=== PATIENT | female | born 1960 | race Caucasian/White ===

== ENCOUNTER 2019-06-06 05:42 | Outpatient (RCR) | payer MEDICARE, MEDICAID, SELFPAY | END 2019-06-19 00:01 | LOC: ONCMED 05:42 | PROVIDERS: Family Provider Nurse Practitioner; PCP Nurse Practitioner; Visit Provider Internal Medicine Medical Oncology | DX: C50.811 Malignant neoplasm of overlapping sites of right female breast (principal); C78.2 Secondary malignant neoplasm of pleura; C78.01 Secondary malignant neoplasm of right lung; C78.02 Secondary malignant neoplasm of left lung; F20.9 Schizophrenia, unspecified; Z17.0 Estrogen receptor positive status [ER+]; Z79.899 Other long term (current) drug therapy; Z99.81 Dependence on supplemental oxygen; Z79.51 Long term (current) use of inhaled steroids; Z79.811 Long term (current) use of aromatase inhibitors; Z92.21 Personal history of antineoplastic chemotherapy | CPT/HCPCS: 36415; 71260; 80053; 85025; 86300; 99214; Q9967 ==

== ENCOUNTER 2019-07-04 05:56 | Outpatient (RCR) | payer MEDICARE, MEDICAID, SELFPAY ==
[2019-07-04 10:20] LABS: Basophils % 0.8 %; Eosinophils # 0.1 10^3/uL (0.0-0.8); Hematocrit 36.1 % (37.0-47.0); Hemoglobin 11.7 g/dL (11.5-15.3); Lymphocytes # 1.3 10^3/uL (0.8-4.8); Lymphocytes % 33.2 %; Mean Corpuscular HGB Conc 32.4 g/dL (30.0-36.0); Mean Corpuscular Hemoglobin 35.2 pg (28.0-34.0); Mean Corpuscular Volume 108.7 fL (81-99); Mean Platelet Volume 9.9 fL (7.4-10.4); Monocytes # 0.4 10^3/uL (0.2-0.9); Monocytes % 9.6 %; Neutrophils # 2.2 10^3/uL (1.8-7.7); Neutrophils % 54.1 %; Nucleated Red Blood Cells % 0 %; Platelet Count 341 10^3/cmm (130-400); Red Blood Count 3.32 10^6/uL (4.1-5.3); Red Cell Distribution Width 14.5 % (12.1-15.1)
[2019-07-04 10:42] LABS: Alanine Aminotransferase 14 U/L (0-33); Albumin Level 4.3 g/dL (3.5-5.2); Alkaline Phosphatase 93 IU/L (35-105); Anion Gap 14.1 (5-19); Aspartate Amino Transferase 14 U/L (0-32); Blood Urea Nitrogen 23 mg/dL (6-20); Calcium 9.7 mg/Dl (8.6-10.0); Carbon Dioxide 28 mmol/L (22-29); Chloride 103 mmol/L (98-107); Globulin 2.7 g/dL (1.3-4.6); Glomerular Filtration Rate 126.3 mL/min (90-130); Glucose 96 mg/dL (74-109); Potassium 4.1 mmol/L (3.5-5.1); Sodium 141 mmol/L (136-145); Total Bilirubin 0.3 mg/dL (0.15-1.2)
--- NOTE | 2019-07-04 13:07 | ONC FU_ITS ---
[facility] Patient Note Patient: Alivia Friedman Unit #: [id number]: [id number] Dictated By: Brandon EckertDate of Visit: Jul 04, 2019 Onc MED Follow-Up/Prog Note Chief Complaint: Breast cancer. History of Present Illness: Ms Friedman is a 59 year-old woman with grade 2 infiltrating ductal carcinoma of the right breast, ER/UT positive and HER-2/cole negative. Her disease was locally advanced and metastatic at initial diagnosis in February 2019. She has a history of long-standing psychiatric disorder, previously diagnosed as schizophrenia. She was seen by Alina Holland on 01/15/2019 with complaints of shortness of breath and cough. Chest x-ray at that time showed diffuse bilateral nodular pulmonary opacities and infiltrates, some of which appeared cavitated. Further evaluation with chest CT on 01/26/2019 showed extensive, contiguous pleural-based and pulmonary metastatic disease bilaterally throughout the thorax. There was suspected extension into the superior surface of the liver. A large right rest mass measured 7.5 x 5.3 x 8.1 cm with likely invasion of the underlying chest wall. There was evidence of right axillary, mediastinal, and hilar lymphadenopathy and there was left celiac axis versus left adrenal abnormal lymph node. There appeared to be metastatic involvement in the right third rib. Dr Lainez had seen her initially on 02/01/2019. She had been aware of a mass in her right breast for least 2 or 3 years. In reviewing her record in [employer], she had been getting mammograms on a fairly regular basis until 2012, when her mammogram showed a nodular, asymmetric density in the medial posterior right breast for which additional evaluation with ultrasound was recommended. She failed to have anything further done. At the time of that visit Dr Lainez had discussed some possible treatment options, and she then did agree to undergo biopsy. It was performed the following day, with pathology showing grade 2 infiltrating ductal carcinoma, ER/UT positive and HER-2/cole negative. On 02/26/2019 she began treatment with palbociclib 125 mg daily on a 21/28 day schedule together with letrozole 2.[address] of the chest with contrast from 06/04/2019 reports the large right breast mass #decreased in size to 4.3 x 7 x 6.2 cm compared to 5.8 x 8.1 x 7.6 cm. She is also had improvement in the right anterior chest wall invasion. Decrease in bulk of right several axillary lymph nodes. Target lymph node measured 0.7 cm on the May scan compared to 2.2 cm on the prior exam. No evidence of left breast mass or left axillary adenopathy. The widespread nodular neoplastic thickening involving the pleural margins of both hemothoraces with overall generalized improvement. Additional involvement of the dye from attic surfaces is improved. On the right the diaphragmatic neoplastic involvement causes slight impingement of the superior margin of the liver but there is less suspicious on this exam of direct hepatic invasion compared to the prior exam. There was a left lower lobe tracheal bronchial region nodule measuring 8.5 mm decreased from 11.1 on the prior exam. There is no evidence otherwise of discrete parenchymal involvement by mass or lesions or neoplastic nodules. Alivia is here today for followup. She has now completed 4 cycles of treatment. She remains very active and does do alot of walking and recycling . She states her appetite is good and she has gained 14 pounds since February 2019. She denies any cough or shortness of breath. She denies any chest pain or palpitations. She states her bowels and bladder are normal for her. She denies any pain-particularly bone pain. She continues to tolerate the palbociclib well. She states her breast mass is smaller and does not bleed anymore. Her ECOG is 0. Past Medical History: Gastroesophageal reflux disease History of long-standing psychiatric disorder Past Surgical History: Wana teeth extraction Influeza vaccine in 2019 Pneumonia vaccine in 2019 Allergies: Azithromycin Medications: Albuterol Sulfate 1 puff(s) (of 108 (90 base) mcg/act) Aerosol Powder, Breath Activated Inhalation daily PRN Calcium 600+D3 Plus Minerals 2 Tablet (of 500-700 mg - Units) Tablet, chewable Oral daily Ibrance 1 Capsule (of 125 mg) Oral daily Ibuprofen 4 Tablet (of 200 mg) Oral PRN Letrozole 1 Tablet (of 2.5 mg) Oral daily Protonix 1 Tablet (of 40 mg) Tablet, enteric coated Oral daily Family History: Ms. Friedman's mother is alive. Ms. Friedman's father at age 78: congestive heart failure, and type II diabetes. Ms. Friemdan has 1 sister who is alive. Father had heart disease, COPD, and diabetes. He at age 78. Mother is still living at age 81 and is apparently in good health. One sister is in good health. Social History: Ms. 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 Ms. Friedman has never smoked. She has no history of drinking. She is a nonsmoker. She does not drink alcohol. Review Of Symptoms: Constitutional Denies fevers, chills, night sweats, excessive fatigue or weight loss. Remains very active. Allergic/Immunologic No reactions. Eyes Denies significant visual changes. No diplopia. No amaurosis. ENMT Denies changes in hearing, sore throat, difficulty or changes in swallowing ability, and/or sinus drainage. Hematologic/Lymphatic Denies easy bruising or bleeding. The patient denies any tender or palpable lymph nodes. Breasts Right breast mass is smaller and it is not draining/bleeding. Respiratory Denies dyspnea on exertion, chest pain, cough or hemoptysis. Denies orthopnea. Cardiovascular Denies anginal chest pain, palpitations or orthopnea. Gastrointestinal Denies nausea, vomiting, diarrhea, GI bleeding, or constipation. Denies change in bowel habits and/or stool color, no heartburn or early satiety. Genitourinary (F) No hematuria, hesitancy, incontinence, vaginal bleeding, discharge or other problems with urination. Musculoskeletal Denies joint pain, swelling or redness. No decreased range of motion. Integumentary Denies chronic rashes, inflammation, ulcerations or skin changes. Neurologic Denies headache, blurred vision, and no areas of focal weakness or numbness. Normal gait. No sensory problems. Psychiatric Denies insomnia, depression, chele or mood swings. Vital Signs: Performed on Jul 04, 2019 11:46 Height - 59.00 in Weight - 142.2 lbs (HIGH) BSA - 1.60 sq.m BMI - 28.72 Temperature - 97.3 F (LOW) Pulse - 73 /min Respiration - 18 /min BP - 125/75 mm(hg) O2 Sat - 97 % Pain - 0,0 - Fully active, able to carry on all predisease activities without restrictions. (ECOG) Physical Examination: Constitutional Alert, oriented, no acute distress. Skin pink, warm and dry. Head Normocephalic; atraumatic. Eyes Conjunctivae and sclerae are clear and without icterus. Pupils are reactive and equal. ENMT No oral exudates, ulcers, masses, thrush or mucositis. Oropharynx clear. Tongue normal. Neck Supple without masses or thyromegaly. No jugular venous distension. Hematologic/Lymphatic No petechiae; purpura on forearms intermittently. No tender or palpable lymph nodes in the cervical or supraclavicular areas. Respiratory Lungs are clear to auscultation without rhonchi or wheezing. Cardiovascular Regular rate and rhythm of heart without murmurs,clicks, gallops or rubs. Back/Spine Non-tender to palpation. Extremities No visible deformities, no cyanosis, clubbing or edema. Musculoskeletal No tenderness or swelling, normal range of motion without obvious weakness. Integumentary No rashes or lesions. Neurologic No sensory or motor deficits, normal cerebellar function, normal gait. Psychiatric Alert and oriented times three. Coherent speech. Verbalizes understanding of our discussions today. Laboratory:See Flow sheet for details Impression: 1. Patient with grade 2 infiltrating ductal carcinoma of the right breast, ER/UT positive and HER-2/cole negative. She had locally advanced and metastatic disease at initial diagnosis, including CT evidence of extensive pleural and pulmonary metastatic involvement. 2. She has GERD. 3. She has a history of long-standing psychiatric, which previously was diagnosed as schizophrenia. She is currently not on any medication for it. On 02/26/2019 she began treatment with palbociclib 125 mg daily on a 21/28 day schedule together with letrozole 2.5 mg daily. She has now completed 3 cycles of treatment. Overall, she has tolerated it well. She does appear to be showing response, as there has been a significant decline in her Ca1 25 level, from 5061 U/mL 2817 U/mL, and there also has been some improvement in her clinical status. CT of the chest with contrast from 06/04/2019 reports the large right breast mass #decreased in size to 4.3 x 7 x 6.2 cm compared to 5.8 x 8.1 x 7.6 cm. She is also had improvement in the right anterior chest wall invasion. Decrease in bulk of right several axillary lymph nodes. Target lymph node measured 0.7 cm on the May scan compared to 2.2 cm on the prior exam. No evidence of left breast mass or left axillary adenopathy. The widespread nodular neoplastic thickening involving the pleural margins of both hemothoraces with overall generalized improvement. Additional involvement of the dye from attic surfaces is improved. On the right the diaphragmatic neoplastic involvement causes slight impingement of the superior margin of the liver but there is less suspicious on this exam of direct hepatic invasion compared to the prior exam. There was a left lower lobe tracheal bronchial region nodule measuring 8.5 mm decreased from 11.1 on the prior exam. There is no evidence otherwise of discrete parenchymal involvement by mass or lesions or neoplastic nodules. Ms Friedman is tolerating letrozole/palbociclib well. She continues treatment. Plan: 1. Continue treatment with letrozole 2.5 mg daily together with palbociclib 125 mg daily on a 21/ day schedule. 2. B12 requested to be added to blood in lab for evaluation of elevated MCV (108.7)/MCH (35.2). 3. Today's labs reviewed in detail and discussed with Ms. Pedro Avendano and a copy was given to her. Her CA-27-29 was pending at visit and that will be called or mailed or both to her. WBC 4.0 hemoglobin 11.7 hematocrit 36.1 platelets 341,000 MCV MCH as noted above. ANC is 2200. Creatinine 0.5 random glucose 96 LFTs are normal alk phos is normal calcium is 9.7. 4. I did refill her albuterol she does have some shortness of breath and wheezing at times. She uses this just as needed. 5. She does have refills on her acyclovir. She has had to use that intermittently for herpes simplex. She is not had any current problems and states the last time she did the medicines took care of it very quickly. 6. We will plan to see her back in 1 month with a CBC, CMP, TSH (for evaluation of intermittent fatigue) and CA-27-29. 7. Ms. Friedman has been instructed to contact us in the interim should questions or problems arise. Signed By: Brandon Eckert-, AOCNP Russell Lainez MD <<Signature on File>>
[2019-07-04 21:38] LABS: Vitamin B12 313 pg/mL (232-1245)
== END 2019-07-20 23:59 | disposition home or self-care (01) ==
LOC: ONCMED 05:56
PROVIDERS: Family Provider Nurse Practitioner; PCP Nurse Practitioner; Visit Provider Nurse Practitioner
DX: C50.811 Malignant neoplasm of overlapping sites of right female breast (principal); C78.01 Secondary malignant neoplasm of right lung; C78.02 Secondary malignant neoplasm of left lung; C79.51 Secondary malignant neoplasm of bone; C78.7 Secondary malignant neoplasm of liver and intrahepatic bile duct; F20.9 Schizophrenia, unspecified; K21.9 Gastro-esophageal reflux disease without esophagitis; R53.83 Other fatigue; Z17.0 Estrogen receptor positive status [ER+]; Z79.899 Other long term (current) drug therapy; Z79.811 Long term (current) use of aromatase inhibitors
CPT/HCPCS: 36415; 80053; 82607; 85025; 99214

== ENCOUNTER 2019-08-02 06:01 | Outpatient (RCR) | payer MEDICARE, MEDICAID, SELFPAY ==
[2019-08-02 08:59] LABS: Basophils # 0.1 10^3/uL (0.0-0.1); Basophils % 1.7 %; Eosinophils # 0.1 10^3/uL (0.0-0.8); Eosinophils % 2.3 %; Hemoglobin 11.6 g/dL (11.5-15.3); Lymphocytes # 1.5 10^3/uL (0.8-4.8); Lymphocytes % 48.3 %; Mean Corpuscular HGB Conc 32.2 g/dL (30.0-36.0); Mean Corpuscular Hemoglobin 34.9 pg (28.0-34.0); Mean Corpuscular Volume 108.4 fL (81-99); Mean Platelet Volume 9.7 fL (7.4-10.4); Monocytes # 0.3 10^3/uL (0.2-0.9); Monocytes % 10.3 %; Neutrophils # 1.1 10^3/uL (1.8-7.7); Neutrophils % 37.4 %; Nucleated Red Blood Cells % 0 %; Platelet Count 256 10^3/cmm (130-400); Red Blood Count 3.32 10^6/uL (4.1-5.3); Red Cell Distribution Width 13.2 % (12.1-15.1)
[2019-08-02 09:31] LABS: Alanine Aminotransferase 14 U/L (0-33); Alkaline Phosphatase 82 IU/L (35-105); Anion Gap 13.2 (5-19); Aspartate Amino Transferase 16 U/L (0-32); Blood Urea Nitrogen 18 mg/dL (6-20); Calcium 9.3 mg/dL (8.5-10.5); Carbon Dioxide 30 mmol/L (22-29); Chloride 103 mmol/L (98-107); Globulin 3.2 g/dL (1.3-4.6); Glomerular Filtration Rate 102.3 mL/min (90-130); Glucose 75 mg/dL (65-115); Potassium 4.2 mmol/L (3.5-5.1); Sodium 142 mmol/L (136-145); Thyroid Stimulating Hormone 2.76 uIU/mL (0.27-4.20); Total Bilirubin 0.2 mg/dL (0.15-1.2); Total Protein 7.2 g/dL (6.6-8.7)
--- NOTE | 2019-08-02 19:14 | ONC FU_ITS ---
Dr. Lainez Patient Follow-Up Note Patient: Alivia Minaya Unit #: [id number]: [id number] Dicatated By: Efren Lainez M.D.Date of Visit:Aug 02, 2019 Onc Med Follow-up/Prog Note Chief Complaint: Breast cancer. History of Present Illness: This is a 59 year-old woman with grade 2 infiltrating ductal carcinoma of the right breast, ER/PA positive and HER-2/cole negative. Her disease was locally advanced and metastatic at initial diagnosis in February 2019. She has a history of long-standing psychiatric disorder, previously diagnosed as schizophrenia. She was seen by Alina Holland on 01/15/2019 with complaints of shortness of breath and cough. Chest x-ray at that time showed diffuse bilateral nodular pulmonary opacities and infiltrates, some of which appeared cavitated. Further evaluation with chest CT on 01/26/2019 showed extensive, contiguous pleural-based and pulmonary metastatic disease bilaterally throughout the thorax. There was suspected extension into the superior surface of the liver. A large right rest mass measured 7.5 x 5.3 x 8.1 cm with likely invasion of the underlying chest wall. There was evidence of right axillary, mediastinal, and hilar lymphadenopathy and there was left celiac axis versus left adrenal abnormal lymph node. There appeared to be metastatic involvement in the right third rib. I had seen her initially on 02/01/2019. She had been aware of a mass in her right breast for least 2 or 3 years. In reviewing her record in [facility], she had been getting mammograms on a fairly regular basis until 2012, when her mammogram showed a nodular, asymmetric density in the medial posterior right breast for which additional evaluation with ultrasound was recommended. She failed to have anything further done. At that initial visit she had agreed to undergo biopsy. It was performed the following day, with pathology showing grade 2 infiltrating ductal carcinoma, ER/PA positive and HER-2/cole negative. On 02/26/2019 she began treatment with palbociclib 125 mg daily on a 21/28 day schedule together with letrozole 2.5 mg daily. During subsequent follow-up she did show gradual improvement clinically, and she appeared to tolerate the treatment very well. She is seen for a scheduled visit. She has now completed 5 cycles of treatment. She has been feeling pretty good generally. She is not aware of any adverse effects with her her treatment. She says her energy is pretty good. She is fairly active. ECOG score is 1. She has good appetite, and she has gained weight. She does not have fever, night sweats, or hot flashes. She has had occasional sores in her mouth. She still has some shortness of breath, mainly with cold weather. She is still on oxygen most of the time. She sometimes has cough. She does not complain of chest pain. She has no GI or complaints. She has no joint or bone pain. She says she sometimes wakes up with headache. She has no focal neurologic symptoms. Medications: Albuterol Sulfate 1 puff(s) (of 108 (90 base) mcg/act) Aerosol Powder, Breath Activated Inhalation daily PRN, Calcium 600+D3 Plus Minerals 2 Tablet (of 500-700 mg - Units) Tablet, chewable Oral daily, Ibrance 1 Capsule (of 125 mg) Oral daily, Ibuprofen 4 Tablet (of 200 mg) Oral PRN, Letrozole 1 Tablet (of 2.5 mg) Oral daily, Protonix 1 Tablet (of 40 mg) Tablet, enteric coated Oral daily Allergies: Azithromycin Review of Systems: Constitutional - Her energy is pretty good generally. She does light work at home. She also walks on nice days. Her appetite is good and her weight is up 8 pounds since her last visit. No fever, chills, hot flashes, or night sweats. ECOG score is 1, ENMT - She has a runny nose. She has mouth sores. No sore throat or difficulty swallowing, Hematologic/Lymphatic - No abnormal bruising or bleeding, Respiratory - She gets out of breath during the cold. She wears oxygen most of the time, but she does take it off when she is at home. She has an occasional cough. No pleuritic pain or hemoptysis, Cardiovascular - No angina pain. No palpitations, Gastrointestinal - No nausea or vomiting. No heartburn or acid reflux. No diarrhea or constipation. No blood in the stool or black stools, Genitourinary (F) - No dysuria or hematuria. No urinary frequency. No urgency or incontinence, Musculoskeletal - No joint or bone pain, Integumentary - No skin complications, Neurologic - She sometimes wakes up with a headache. No dizziness. No numbness/paresthesias or other focal neurologic symptoms, Psychiatric - She has anxiety. No insomnia. Vital Signs: Performed on Aug 02, 2019 09:28 Height - 59.00 in Weight - 150.2 lbs (HIGH) BSA - 1.63 sq.m BMI - 30.34 (HIGH) Temperature - 98.2 F (LOW) Pulse - 84 /min Respiration - 26 /min BP - 127/80 mm(hg) O2 Sat - 97 % Pain - 0 Physical Examination: Constitutional - She looks pretty good generally, Eyes - Sclerae nonicteric. Conjunctivae clear, ENMT - No lesions noted in the oral cavity, Hematologic/Lymphatic - No cervical or clavicular adenopathy, Respiratory - Lungs sound clear with slightly diminished air movement at the right lung base, Cardiovascular - Heart rhythm is regular. There is a II/ systolic murmur. There is no gallop or rub noted, Breasts - There are discrete masses palpable in the medial and in the central right breast. There is only slight residual skin ulceration medially. There is a small residual nodule palpable in the right axilla, Abdomen - Soft. Liver and spleen are not enlarged. There is no abdominal mass or ascites noted and there is no inguinal adenopathy, Extremities - No edema, Neurologic - No focal neurologic deficits noted. Lab/Imaging: Test performed on Aug 02, 2019 08:20 Sodium 142 mmol/L TSH 2.76 uIU/mL Potassium 4.2 mmol/L Chloride 103 mmol/L CO2 30 mmol/L Anion Gap 13.2 BUN 18 mg/dL Creatinine 0.6 mg/dL Cr Clearance (Est) 108.5800 mL/min eGFR 102.3 mL/min Glucose 75 mg/dL Calcium 9.3 mg/dL Protein, Total 7.2 g/dL Albumin 4.0 g/dL Globulin 3.2 g/dL Bilirubin, Total 0.2 mg/dL ALT (SGPT) 14 U/L AST (SGOT) 16 U/L Alkaline Phosphatase 82 IU/L WBC 3.0 10 3/uL RBC 3.32 10 6/uL HGB 11.6 g/dL HCT 36.0 % MCV 108.4 fL MCH 34.9 pg MCHC 32.2 g/dL RDW 13.2 % Platelet Count 256 10 3/cmm MPV 9.7 fL Neutrophils 1.1 10 3/uL Lymphocytes 1.5 10 3/uL Monocytes 0.3 10 3/uL Eosinophils 0.1 10 3/uL Basophils 0.1 10 3/uL Neutrophil % 37.4 % Lymphocyte % 48.3 % Monocyte % 10.3 % Eosinophil % 2.3 % Basophils % 1.7 % Impression: 1. Patient with grade 2 infiltrating ductal carcinoma of the right breast, ER/PA positive and HER-2/cole negative. She had locally advanced and metastatic disease at initial diagnosis, including CT evidence of extensive pleural and pulmonary metastatic involvement. 2. She has GERD. 3. She has a history of a long-standing psychiatric disorder, which previously was diagnosed as schizophrenia. She is currently not on any medication for it. On 02/26/2019 she began treatment with palbociclib 125 mg daily on a 21/28 day schedule together with letrozole 2.5 mg daily. She has now completed 5 cycles of treatment. She has been tolerating it very well, and by clinical evaluation she does appear to be showing a very good response. Plan: She will continue treatment with palbociclib 125 mg daily on a 21/28 day schedule together with letrozole 2.5 mg daily. She will be scheduled for a follow-up visit in one month. Signed By: Efren Lainez M.D. <<Signature on File>>
== END 2019-08-18 23:59 | disposition home or self-care (01) ==
LOC: ONCMED 06:01
PROVIDERS: Family Provider Nurse Practitioner; PCP Nurse Practitioner; Visit Provider Internal Medicine Medical Oncology
DX: C50.811 Malignant neoplasm of overlapping sites of right female breast (principal); C78.01 Secondary malignant neoplasm of right lung; C78.02 Secondary malignant neoplasm of left lung; K21.9 Gastro-esophageal reflux disease without esophagitis; F20.9 Schizophrenia, unspecified; Z17.0 Estrogen receptor positive status [ER+]; Z79.899 Other long term (current) drug therapy; Z79.811 Long term (current) use of aromatase inhibitors
CPT/HCPCS: 80053; 84443; 85025; 86300; 99214

== ENCOUNTER → 2019-09-10 14:54 | Outpatient (BNVA) | payer MEDICARE, MEDICAID, SELFPAY | PROVIDERS: Family Provider Nurse Practitioner; PCP Nurse Practitioner; Visit Provider Nurse Practitioner | DX: F60.1 Schizoid personality disorder (principal); F41.1 Generalized anxiety disorder | CPT/HCPCS: 99213 ==

== ENCOUNTER 2019-09-14 10:00 | Outpatient (RCR) | payer MEDICARE, MEDICAID, SELFPAY ==
[2019-08-30 09:48] LABS: Basophils % 0.9 %; Eosinophils # 0.1 10^3/uL (0.0-0.8); Eosinophils % 2.4 %; Hemoglobin 11.9 g/dL (11.5-15.3); Lymphocytes # 1.5 10^3/uL (0.8-4.8); Lymphocytes % 44.2 %; Mean Corpuscular HGB Conc 33.1 g/dL (30.0-36.0); Mean Corpuscular Hemoglobin 35.5 pg (28.0-34.0); Mean Corpuscular Volume 107.5 fL (81-99); Mean Platelet Volume 9.4 fL (7.4-10.4); Monocytes # 0.3 10^3/uL (0.2-0.9); Monocytes % 7.9 %; Neutrophils # 1.5 10^3/uL (1.8-7.7); Neutrophils % 44.3 %; Nucleated Red Blood Cells % 0 %; Platelet Count 255 10^3/cmm (130-400); Red Blood Count 3.35 10^6/uL (4.1-5.3); Red Cell Distribution Width 13.2 % (12.1-15.1); White Blood Count 3.3 10^3/uL (4.0-10.0)
[2019-08-30 10:03] LABS: Alanine Aminotransferase 14 U/L (0-33); Albumin Level 3.6 g/dL (3.5-5.2); Alkaline Phosphatase 79 IU/L (35-105); Anion Gap 14.3 (5-19); Aspartate Amino Transferase 15 U/L (0-32); Blood Urea Nitrogen 19 mg/dL (6-20); Calcium 9.5 mg/dL (8.5-10.5); Carbon Dioxide 28 mmol/L (22-29); Chloride 103 mmol/L (98-107); Globulin 3.7 g/dL (1.3-4.6); Glomerular Filtration Rate 102.3 mL/min (90-130); Glucose 124 mg/dL (65-115); Osmolality Calculated 290 mOsm/kg (285-295); Potassium 4.3 mmol/L (3.5-5.1); Sodium 141 mmol/L (136-145); Total Bilirubin 0.3 mg/dL (0.15-1.2); Total Protein 7.3 g/dL (6.6-8.7)
[2019-08-31 05:56] LABS: CA 27.29 1401 U/mL (<38)
--- NOTE | 2019-09-02 15:44 | ONC FU_ITS ---
[facility] Patient Note Patient: Alivia Friedman Unit #: [id number]: 1960 Dictated By: Brandon EckertDate of Visit: Aug 30, 2019 Onc MED Follow-Up/Prog Note Chief Complaint: Breast cancer. History of Present Illness: Ms Friedman is a 59 year-old woman with grade 2 infiltrating ductal carcinoma of the right breast, ER/FL positive and HER-2/cole negative. Her disease was locally advanced and metastatic at initial diagnosis in February 2019. She has a history of long-standing psychiatric disorder, previously diagnosed as schizophrenia. She was seen by Alina Holland on 01/15/2019 with complaints of shortness of breath and cough. Chest x-ray at that time showed diffuse bilateral nodular pulmonary opacities and infiltrates, some of which appeared cavitated. Further evaluation with chest CT on 01/26/2019 showed extensive, contiguous pleural-based and pulmonary metastatic disease bilaterally throughout the thorax. There was suspected extension into the superior surface of the liver. A large right rest mass measured 7.5 x 5.3 x 8.1 cm with likely invasion of the underlying chest wall. There was evidence of right axillary, mediastinal, and hilar lymphadenopathy and there was left celiac axis versus left adrenal abnormal lymph node. There appeared to be metastatic involvement in the right third rib. Dr Lainez had seen her initially on 02/01/2019. She had been aware of a mass in her right breast for least 2 or 3 years. In reviewing her record in [facility], she had been getting mammograms on a fairly regular basis until 2012, when her mammogram showed a nodular, asymmetric density in the medial posterior right breast for which additional evaluation with ultrasound was recommended. She failed to have anything further done. At that initial visit she had agreed to undergo biopsy. It was performed the following day, with pathology showing grade 2 infiltrating ductal carcinoma, ER/FL positive and HER-2/cole negative. On 02/26/2019 she began treatment with palbociclib 125 mg daily on a 21/28 day schedule together with letrozole 2.5 mg daily. During subsequent follow-up she did show gradual improvement clinically, and she appeared to tolerate the treatment very well. Ms Friedman is here today for a scheduled visit. She has now completed 6 cycles of treatment. She states overall she is doing well. She is remaining active. She walks a lot and takes her cart and recycles quite a bit as well. She denies any pain. She denies any shortness of breath or orthopnea. She states she has not had any fever or chills that she is aware of. She denies any nausea or vomiting. She said no diarrhea or constipation. She states she feels good in general and feels that the breast mass is getting smaller. She denies any neuropathy symptoms. She denies any headaches at this visit. She is pleasant. She is able to answer questions appropriately and give good detail. Her ECOG is 0. Past Medical History: Gastroesophageal reflux disease History of long-standing psychiatric disorder Past Surgical History: [place] teeth extraction Influeza vaccine in 2019 Pneumonia vaccine in 2019 Allergies: Azithromycin Medications: Albuterol Sulfate 1 puff(s) (of 108 (90 base) mcg/act) Aerosol Powder, Breath Activated Inhalation daily PRN Calcium 600+D3 Plus Minerals 2 Tablet (of 500-700 mg - Units) Tablet, chewable Oral daily Ibrance 1 Capsule (of 125 mg) Oral daily Ibuprofen 4 Tablet (of 200 mg) Oral PRN Letrozole 1 Tablet (of 2.5 mg) Oral daily Protonix 1 Tablet (of 40 mg) Tablet, enteric coated Oral daily Family History: Ms. Friedman's mother is alive. Ms. Friedman's father at age 78: congestive heart failure, and type II diabetes. Ms. Friedman has 1 sister who is alive. Father had heart disease, COPD, and diabetes. He at age 78. Mother is still living at age 81 and is apparently in good health. One sister is in good health. 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 Ms. Friedman has never smoked. She has no history of drinking. She is a nonsmoker. She does not drink alcohol. Review Of Symptoms: Constitutional Denies fevers, chills, night sweats, excessive fatigue or weight loss. Remains very active. Allergic/Immunologic No reactions. Eyes Denies significant visual changes. No diplopia. No amaurosis. ENMT Denies changes in hearing, sore throat, difficulty or changes in swallowing ability, and/or sinus drainage. Endocrine No diabetes, thyroid disease or hormone replacement. Denies hot flashes or night sweats. Hematologic/Lymphatic Denies easy bruising or bleeding. The patient denies any tender or palpable lymph nodes. Breasts Right breast mass is smaller and it is not draining/bleeding. Respiratory Denies dyspnea on exertion, chest pain, cough or hemoptysis. Denies orthopnea. Cardiovascular Denies anginal chest pain, palpitations or orthopnea. Gastrointestinal Denies nausea, vomiting, diarrhea, GI bleeding, or constipation. Denies change in bowel habits and/or stool color, no heartburn or early satiety. Genitourinary (F) No hematuria, hesitancy, incontinence, vaginal bleeding, discharge or other problems with urination. Musculoskeletal Denies joint pain, swelling or redness. No decreased range of motion. Integumentary Denies chronic rashes, inflammation, ulcerations or skin changes. Neurologic Denies headache, blurred vision, and no areas of focal weakness or numbness. Normal gait. No sensory problems. Psychiatric Denies insomnia, depression, chele or mood swings. Vital Signs: Performed on Aug 30, 2019 10:52 Height - 59.00 in Weight - 146.8 lbs (LOW) BSA - 1.62 sq.m BMI - 29.65 Temperature - 98.4 F Pulse - 71 /min Respiration - 24 /min BP - 113/78 mm(hg) O2 Sat - 97 % Pain - 0,0 - Fully active, able to carry on all predisease activities without restrictions. (ECOG) Physical Examination: Constitutional Alert, oriented, no acute distress. Skin pink, warm and dry. Head Normocephalic; atraumatic. Eyes Conjunctivae and sclerae are clear and without icterus. Pupils are reactive and equal. ENMT No oral exudates, ulcers, masses, thrush or mucositis. Oropharynx clear. Tongue normal. Neck Supple without masses or thyromegaly. No jugular venous distension. Hematologic/Lymphatic No petechiae; purpura on forearms intermittently. No tender or palpable lymph nodes in the cervical or supraclavicular areas. Respiratory Lungs are clear to auscultation without rhonchi or wheezing. Cardiovascular Regular rate and rhythm of heart without murmurs,clicks, gallops or rubs. Breasts Right breast mass approx 4.5-5.0 cm in diameter. Mild erythematous. No open areas, no scabbing. Back/Spine Non-tender to palpation. Extremities No visible deformities, no cyanosis, clubbing or edema. Musculoskeletal No tenderness or swelling, normal range of motion without obvious weakness. Integumentary No rashes or lesions. Neurologic No sensory or motor deficits, normal cerebellar function, normal gait. Psychiatric Alert and oriented times three. Coherent speech. Verbalizes understanding of our discussions today. Laboratory:Test performed on Aug 30, 2019 09:13 Sodium 141 mmol/L Potassium 4.3 mmol/L Chloride 103 mmol/L CO2 28 mmol/L Anion Gap 14.3 BUN 19 mg/dL Creatinine 0.6 mg/dL Cr Clearance (Est) 106.13 mL/min eGFR 102.3 mL/min Glucose 124 mg/dL Calcium 9.5 mg/dL Protein, Total 7.3 g/dL Albumin 3.6 g/dL Globulin 3.7 g/dL Bilirubin, Total 0.3 mg/dL ALT (SGPT) 14 U/L AST (SGOT) 15 U/L Alkaline Phosphatase 79 IU/L WBC 3.3 10 3/uL RBC 3.35 10 6/uL HGB 11.9 g/dL HCT 36.0 % MCV 107.5 fL MCH 35.5 pg MCHC 33.1 g/dL RDW 13.2 % Platelet Count 255 10 3/cmm MPV 9.4 fL Neutrophils 1.5 10 3/uL Lymphocytes 1.5 10 3/uL Monocytes 0.3 10 3/uL Eosinophils 0.1 10 3/uL Basophils 0.0 10 3/uL Neutrophil % 44.3 % Lymphocyte % 44.2 % Monocyte % 7.9 % Eosinophil % 2.4 % Basophils % 0.9 % Impression: 1. Patient with grade 2 infiltrating ductal carcinoma of the right breast, ER/FL positive and HER-2/cole negative. She had locally advanced and metastatic disease at initial diagnosis, including CT evidence of extensive pleural and pulmonary metastatic involvement. 2. She has GERD. 3. She has a history of a long-standing psychiatric disorder, which previously was diagnosed as schizophrenia. She is currently not on any medication for it. On 02/26/2019 she began treatment with palbociclib 125 mg daily on a 21/28 day schedule together with letrozole 2.5 mg daily. She has now completed 5 cycles of treatment. She has been tolerating it very well, and by clinical evaluation she does appear to be showing a very good response. Plan: 1. Continue treatment with letrozole 2.5 mg daily together with palbociclib 125 mg daily on a 21/28 day schedule. This is her off week. 2. B12 requested to be added to blood in lab for evaluation of elevated MCV (108.7)/MCH (35.2). 3. Today's labs reviewed in detail and discussed with Ms. Friedman and a copy was given to her. Her CA-[id number] in July 2019 and is pending at visit today. and that will be called or mailed or both to her. WBC 3.3 hemoglobin 11.9 hematocrit 36.0 platelets 255,000. ANC is 1500. Creatinine 0.6 random glucose 124 LFTs are normal alk phos is normal calcium is 9.5. 4. 5. She does have refills on her acyclovir. She has had to use that intermittently for herpes simplex. She is not had any current problems and states the last time she did the medicines took care of it very quickly. 6. We will plan to see her back in 1 month with a CBC, CMP and CA-27-29. 7. Ms. Friedman has been instructed to contact us in the interim should questions or problems arise. Signed By: Brandon Eckert-, AOP Efren Lainez MD <<Signature on File>>
--- NOTE | 2019-09-14 09:51 | CT_ITS ---
WS: [id number] CT scan of the chest with IV contrast, additional two-dimensional coronal and sagittal reconstruction was performed. 09/14/2019 Clinical Data: BREAST CANCER Comparison: CT chest, 06/04/2019 DLP: 562.[address] scans at [facility] use at least one of these dose optimization techniques: automat ed exposure control; mA and/or kV adjustment per patient size (includes targeted exams where dose is matched to clinical indication); or iterative reconstruction. Findings: There are large right breast mass measures 3.24 x 5.65 cm and is smaller than was seen on previous ex aminations. The mass is adjacent to the muscles of the right anterior chest but no direct invasion is seen. There are right axillary lymph nodes have changed in size. There is thickening of the pleural margins and thickening of the pleura with nodular change at the lung bases however there is been no i ncrease in the pleural thickening. There is atelectasis of the lingula and right middle lobe unchange d. No effusions are seen. The thoracic aorta and pulmonary arterial systems show no changes from befo re. There are no distinct nodules. The trachea bifurcates normally into the bronchi. There is a middl e mediastinal node unchanged. The heart size is enlarged and there is no pericardial effusion. There is an hiatal hernia. The upper abdomen demonstrates no change from before. The superior vena cava is moderately dilated. N o bony metastatic lesions are seen. CT/CT chest w con* [id number] Impression: 1. Decrease in size of right breast mass. 2. No change in extensive pleural and diaphragmatic metastatic disease.
[2019-09-14] MEDS: iohexol 300 mg/mL 100 mL Btl IV (10:09)
== END 2019-09-18 23:59 | disposition home or self-care (01) ==
LOC: RADWPI 10:00
PROVIDERS: Family Provider Nurse Practitioner; PCP Nurse Practitioner; Visit Provider Nurse Practitioner
DX: C50.811 Malignant neoplasm of overlapping sites of right female breast (principal); C78.01 Secondary malignant neoplasm of right lung; C78.02 Secondary malignant neoplasm of left lung; C78.2 Secondary malignant neoplasm of pleura; Z17.0 Estrogen receptor positive status [ER+]; K21.9 Gastro-esophageal reflux disease without esophagitis; F20.9 Schizophrenia, unspecified; Z51.81 Encounter for therapeutic drug level monitoring; Z79.899 Other long term (current) drug therapy; Z79.811 Long term (current) use of aromatase inhibitors
CPT/HCPCS: 71260; 80053; 85025; 86300; 99214; Q9967

== ENCOUNTER 2019-09-27 07:02 | Outpatient (RCR) | payer MEDICARE, MEDICAID, SELFPAY ==
[2019-09-26 18:22] LABS: Basophils % 0.8 %; Eosinophils # 0.1 10^3/uL (0.0-0.8); Eosinophils % 1.4 %; Hematocrit 35.5 % (37.0-47.0); Hemoglobin 11.7 g/dL (11.5-15.3); Lymphocytes # 1.7 10^3/uL (0.8-4.8); Lymphocytes % 46.4 %; Mean Corpuscular Hemoglobin 34.3 pg (28.0-34.0); Mean Corpuscular Volume 104.1 fL (81-99); Mean Platelet Volume 9.6 fL (7.4-10.4); Monocytes # 0.3 10^3/uL (0.2-0.9); Monocytes % 8.1 %; Neutrophils # 1.6 10^3/uL (1.8-7.7); Nucleated Red Blood Cells % 0 %; Platelet Count 305 10^3/cmm (130-400); Red Blood Count 3.41 10^6/uL (4.1-5.3); Red Cell Distribution Width 13.8 % (12.1-15.1); White Blood Count 3.6 10^3/uL (4.0-10.0)
[2019-09-26 19:37] LABS: Slide Review Slide Review Perform
[2019-09-26 19:47] LABS: Alanine Aminotransferase 19 U/L (0-33); Alkaline Phosphatase 94 IU/L (35-105); Aspartate Amino Transferase 18 U/L (0-32); Blood Urea Nitrogen 13 mg/dL (6-20); Calcium 9.4 mg/dL (8.5-10.5); Carbon Dioxide 25 mmol/L (22-29); Chloride 100 mmol/L (98-107); Globulin 3.3 g/dL (1.3-4.6); Glomerular Filtration Rate 102.3 mL/min (90-130); Glucose 92 mg/dL (65-115); Osmolality Calculated 280 mOsm/kg (285-295); Sodium 137 mmol/L (136-145); Total Bilirubin 0.3 mg/dL (0.15-1.2); Total Protein 7.3 g/dL (6.6-8.7)
--- NOTE | 2019-09-27 18:32 | ONC FU_ITS ---
Dr. Lainez Patient Follow-Up Note Patient: Alivia Minaya Unit #: [id number]: 1960 Dicatated By: Efren Lainez M.D.Date of Visit:Sep 27, 2019 Onc Med Follow-up/Prog Note Chief Complaint: Breast cancer. History of Present Illness: This is a 59 year-old woman with grade 2 infiltrating ductal carcinoma of the right breast, ER/UT positive and HER-2/cole negative. Her disease was locally advanced and metastatic at initial diagnosis in February 2019. She has a history of long-standing psychiatric disorder, previously diagnosed as schizophrenia. She was seen by Alina Holland on 01/15/2019 with complaints of shortness of breath and cough. Chest x-ray at that time showed diffuse bilateral nodular pulmonary opacities and infiltrates, some of which appeared cavitated. Further evaluation with chest CT on 01/26/2019 showed extensive, contiguous pleural-based and pulmonary metastatic disease bilaterally throughout the thorax. There was suspected extension into the superior surface of the liver. A large right rest mass measured 7.5 x 5.3 x 8.1 cm with likely invasion of the underlying chest wall. There was evidence of right axillary, mediastinal, and hilar lymphadenopathy and there was left celiac axis versus left adrenal abnormal lymph node. There appeared to be metastatic involvement in the right third rib. I had seen her initially on 02/01/2019. She had been aware of a mass in her right breast for least 2 or 3 years. In reviewing her record in [facility], she had been getting mammograms on a fairly regular basis until 2012, when her mammogram showed a nodular, asymmetric density in the medial posterior right breast for which additional evaluation with ultrasound was recommended. She failed to have anything further done. At that initial visit she had agreed to undergo biopsy. It was performed the following day, with pathology showing grade 2 infiltrating ductal carcinoma, ER/UT positive and HER-2/cole negative. On 02/26/2019 she began treatment with palbociclib 125 mg daily on a 21/28 day schedule together with letrozole 2.5 mg daily. During subsequent follow-up she did show gradual improvement clinically, and she appeared to tolerate the treatment very well. Restaging chest CT on 09/14/2019 showed decrease in the size of the large breast mass compared to the May 2019 study. Axillary lymph nodes had not changed in size. Thickening of the pleural margins and thickening of the pleura with nodular change at the lung bases also appeared stable. Atelectasis of the lingula and right middle lobe appeared unchanged. There were no distinct nodules noted. A middle mediastinal lymph node appeared unchanged. She is seen for a scheduled visit by Telehealth. She has been feeling pretty good generally. Her energy has been okay. She is doing light work. ECOG score is 1. She has good appetite. She has no fever, night sweats, or hot flashes. She sometimes has cough in the morning. She says her breathing has been good, though she is still on oxygen. She has not been having chest pain. She has no GI or complaints. She has no significant joint or bone pain. She sometimes has headache in the morning. She has no focal neurologic symptoms. Medications: Albuterol Sulfate 1 puff(s) (of 108 (90 base) mcg/act) Aerosol Powder, Breath Activated Inhalation daily PRN, Calcium 600+D3 Plus Minerals 2 Tablet (of 500-700 mg - Units) Tablet, chewable Oral daily, Ibrance 1 Capsule (of 125 mg) Oral daily, Ibuprofen 4 Tablet (of 200 mg) Oral PRN, Letrozole 1 Tablet (of 2.5 mg) Oral daily, Protonix 1 Tablet (of 40 mg) Tablet, enteric coated Oral daily Allergies: Azithromycin Review of Systems: Constitutional - Her energy level is oaky. She is doing light housework. Her appetite is good and weight is stable. No fever, chills, hot flashes, or night sweats. ECOG score is 1, ENMT - No sinus congestion/drainage. No mouth sores. No sore throat or difficulty swallowing, Hematologic/Lymphatic - No abnormal bruising or bleeding, Respiratory - No shortness of breath. She wears continuous oxygen. She has a slight cough in the mornings. No pleuritic pain or hemoptysis, Cardiovascular - No angina pain. No palpitations, Gastrointestinal - No nausea or vomiting. No heartburn or acid reflux. No diarrhea or constipation. No blood in the stool or black stools, Genitourinary (F) - No dysuria or hematuria. No urinary frequency. No urgency or incontinence, Musculoskeletal - She has no significant joint or bone pain, Integumentary - No skin complications, Neurologic - She sometimes has headache in the morning. No dizziness. No numbness/paresthesias or other focal neurologic symptoms, Psychiatric - She has chronic anxiety. No insomnia. Physical Examination: Constitutional - She looks pretty good generally, Breasts - The right breast looks about the same. There is no open skin ulceration. Lab/Imaging: CBC shows hemoglobin 11.7 g, white blood cell count 3600, and platelet count 305,000. Comprehensive metabolic profile is unremarkable. Impression: 1. Patient with grade 2 infiltrating ductal carcinoma of the right breast, ER/UT positive and HER-2/cole negative. She had locally advanced and metastatic disease at initial diagnosis, including CT evidence of extensive pleural and pulmonary metastatic involvement. 2. She has GERD. 3. She has a history of a long-standing psychiatric disorder, which previously was diagnosed as schizophrenia. She is currently not on any medication for it. On 02/26/2019 she began treatment with palbociclib 125 mg daily on a 21/28 day schedule together with letrozole 2.5 mg daily. As of July 2019 she began her 6th cycle of treatment. She has continued to tolerate it very well. She has had a good response by clinical evaluation and by CT scan. Plan: She will continue treatment with palbociclib 125 mg daily on a 21/28 day schedule together with letrozole 2.5 mg daily. She will be scheduled for a follow-up visit in 3 months. Signed By: Efren aLinez M.D. <<Signature on File>>
[2019-09-28 11:30] LABS: CA 27.29 1170 U/mL (<38)
== END 2019-10-18 23:59 | disposition home or self-care (01) ==
LOC: ONCMED 07:02
PROVIDERS: Nurse Practitioner; Family Provider Nurse Practitioner; PCP Nurse Practitioner; Visit Provider Internal Medicine Medical Oncology
DX: C50.811 Malignant neoplasm of overlapping sites of right female breast (principal); Z17.0 Estrogen receptor positive status [ER+]; C78.2 Secondary malignant neoplasm of pleura; K21.9 Gastro-esophageal reflux disease without esophagitis; F20.9 Schizophrenia, unspecified; Z92.21 Personal history of antineoplastic chemotherapy; Z79.899 Other long term (current) drug therapy; Z79.818 Long term (current) use of other agents affecting estrogen receptors and estrogen levels
CPT/HCPCS: 36415; 80053; 85025; 86300

== ENCOUNTER 2019-10-25 10:10 | Outpatient (RCR) | payer MEDICARE, MEDICAID, SELFPAY ==
[2019-10-25 16:36] LABS: Basophils % 1.1 %; Eosinophils % 1.1 %; Hematocrit 38.7 % (37.0-47.0); Hemoglobin 12.1 g/dL (11.5-15.3); Lymphocytes # 1.1 10^3/uL (0.8-4.8); Mean Corpuscular HGB Conc 31.3 g/dL (30.0-36.0); Mean Corpuscular Hemoglobin 33.5 pg (28.0-34.0); Mean Corpuscular Volume 107.2 fL (81-99); Mean Platelet Volume 9.7 fL (7.4-10.4); Monocytes # 0.3 10^3/uL (0.2-0.9); Monocytes % 7.1 %; Neutrophils % 58.4 %; Nucleated Red Blood Cells % 0 %; Platelet Count 329 10^3/cmm (130-400); Red Blood Count 3.61 10^6/uL (4.1-5.3); Red Cell Distribution Width 14.9 % (12.1-15.1); White Blood Count 3.5 10^3/uL (4.0-10.0)
[2019-10-25 16:42] LABS: Alanine Aminotransferase 15 U/L (0-33); Alkaline Phosphatase 92 IU/L (35-105); Anion Gap 16.2 (5-19); Aspartate Amino Transferase 17 U/L (0-32); Blood Urea Nitrogen 25 mg/dL (6-20); Calcium 9.6 mg/dL (8.5-10.5); Carbon Dioxide 26 mmol/L (22-29); Chloride 103 mmol/L (98-107); Globulin 3.7 g/dL (1.3-4.6); Glomerular Filtration Rate 126.3 mL/min (90-130); Glucose 75 mg/dL (65-115); Osmolality Calculated 288 mOsm/kg (285-295); Potassium 4.2 mmol/L (3.5-5.1); Sodium 141 mmol/L (136-145); Total Bilirubin 0.4 mg/dL (0.15-1.2); Total Protein 7.7 g/dL (6.6-8.7)
[2019-10-26 08:46] LABS: CA 27.29 952 U/mL (<38)
== END 2019-11-18 23:59 | disposition home or self-care (01) ==
LOC: ONCMED 10:10
PROVIDERS: Family Provider Nurse Practitioner; PCP Nurse Practitioner; Visit Provider Internal Medicine Medical Oncology
DX: C50.811 Malignant neoplasm of overlapping sites of right female breast (principal); Z17.0 Estrogen receptor positive status [ER+]; C78.2 Secondary malignant neoplasm of pleura; C78.01 Secondary malignant neoplasm of right lung; C78.02 Secondary malignant neoplasm of left lung; K21.9 Gastro-esophageal reflux disease without esophagitis; Z86.59 Personal history of other mental and behavioral disorders
CPT/HCPCS: 36415; 80053; 85025; 86300

== ENCOUNTER 2019-12-27 09:11 | Outpatient (CLI) | payer MEDICARE, MEDICAID, SELFPAY ==
[2019-12-27 09:37] LABS: Basophils % 1.1 %; Eosinophils # 0.1 10^3/uL (0.0-0.8); Eosinophils % 1.4 %; Hematocrit 36.2 % (37.0-47.0); Hemoglobin 11.7 g/dL (11.5-15.3); Lymphocytes # 1.4 10^3/uL (0.8-4.8); Lymphocytes % 40.4 %; Mean Corpuscular HGB Conc 32.3 g/dL (30.0-36.0); Mean Corpuscular Hemoglobin 34.3 pg (28.0-34.0); Mean Corpuscular Volume 106.2 fL (81-99); Mean Platelet Volume 9.9 fL (7.4-10.4); Monocytes # 0.4 10^3/uL (0.2-0.9); Monocytes % 9.9 %; Neutrophils # 1.66 10^3/uL (1.8-7.7); Neutrophils % 46.9 %; Nucleated Red Blood Cells % 0 %; Platelet Count 205 10^3/cmm (130-400); Red Blood Count 3.41 10^6/uL (4.1-5.3); Red Cell Distribution Width 14.4 % (12.1-15.1); White Blood Count 3.5 10^3/uL (4.0-10.0)
[2019-12-27 10:02] LABS: Alanine Aminotransferase 13 U/L (0-33); Albumin Level 3.9 g/dL (3.5-5.2); Alkaline Phosphatase 82 IU/L (35-105); Anion Gap 11.9 (5-19); Aspartate Amino Transferase 15 U/L (0-32); Blood Urea Nitrogen 17 mg/dL (6-20); Calcium 9.1 mg/dL (8.5-10.5); Carbon Dioxide 25 mmol/L (22-29); Chloride 107 mmol/L (98-107); Globulin 2.8 g/dL (1.3-4.6); Glomerular Filtration Rate 163.4 mL/min (90-130); Glucose 96 mg/dL (65-115); Osmolality Calculated 286 mOsm/kg (285-295); Potassium 3.9 mmol/L (3.5-5.1); Sodium 140 mmol/L (136-145); Total Bilirubin 0.2 mg/dL (0.15-1.2); Total Protein 6.7 g/dL (6.6-8.7)
--- NOTE | 2019-12-29 15:03 | ONC FU_ITS ---
Dr. Lainez Patient Follow-Up Note Patient: Alivia Minaya Unit #: [id number]: [id number] Dicatated By: Efren Lainez M.D.Date of Visit:Dec 27, 2019 Onc Med Follow-up/Prog Note Chief Complaint: Breast cancer. History of Present Illness: This is a 59 year-old woman with grade 2 infiltrating ductal carcinoma of the right breast, ER/TN positive and HER-2/cole negative. Her disease was locally advanced and metastatic at initial diagnosis in February 2019. She has a history of long-standing psychiatric disorder, previously diagnosed as schizophrenia. She was seen by Alina Holland on 01/15/2019 with complaints of shortness of breath and cough. Chest x-ray at that time showed diffuse bilateral nodular pulmonary opacities and infiltrates, some of which appeared cavitated. Further evaluation with chest CT on 01/26/2019 showed extensive, contiguous pleural-based and pulmonary metastatic disease bilaterally throughout the thorax. There was suspected extension into the superior surface of the liver. A large right rest mass measured 7.5 x 5.3 x 8.1 cm with likely invasion of the underlying chest wall. There was evidence of right axillary, mediastinal, and hilar lymphadenopathy and there was left celiac axis versus left adrenal abnormal lymph node. There appeared to be metastatic involvement in the right third rib. I had seen her initially on 02/01/2019. She had been aware of a mass in her right breast for least 2 or 3 years. In reviewing her record in [facility], she had been getting mammograms on a fairly regular basis until 2012, when her mammogram showed a nodular, asymmetric density in the medial posterior right breast for which additional evaluation with ultrasound was recommended. She failed to have anything further done. At that initial visit she had agreed to undergo biopsy. It was performed the following day, with pathology showing grade 2 infiltrating ductal carcinoma, ER/TN positive and HER-2/cole negative. On 02/26/2019 she began treatment with palbociclib 125 mg daily on a 21/ day schedule together with letrozole 2.5 mg daily. During subsequent follow-up she did show gradual improvement clinically, and she appeared to tolerate the treatment very well. Restaging chest CT on 09/14/2019 showed decrease in the size of the large breast mass compared to the May 2019 study. Axillary lymph nodes had not changed in size. Thickening of the pleural margins and thickening of the pleura with nodular change at the lung bases also appeared stable. Atelectasis of the lingula and right middle lobe appeared unchanged. There were no distinct nodules noted. A middle mediastinal lymph node appeared unchanged. She continued treatment with letrozole in combination with palbociclib. She is seen for a followup visit. She has been feeling pretty good. She has pretty good energy and activity tolerance. She is taking walks in the evening. Her ECOG score is 1. She has good appetite. She has no fever or night sweats. She sometimes has congestion when she first wakes up in the morning. She otherwise is not having shortness of breath or cough. She has no GI or complaints. She has no significant joint or bone pain. She sometimes has headache. She complains that her hands sometimes tingle. Medications: Albuterol Sulfate 1 puff(s) (of 108 (90 base) mcg/act) Aerosol Powder, Breath Activated Inhalation daily PRN, Calcium 600+D3 Plus Minerals 2 Tablet (of 500-700 mg - Units) Tablet, chewable Oral daily, Ibrance 1 Capsule (of 125 mg) Oral daily, Ibuprofen 4 Tablet (of 200 mg) Oral PRN, Letrozole 1 Tablet (of 2.5 mg) Oral daily, Protonix 1 Tablet (of 40 mg) Tablet, enteric coated Oral daily Allergies: Azithromycin Review of Systems: Constitutional - She is feeling okay. She is able to do some light housework and she is able to take short walks. Her appetite is good and weight is stable. No fever, night sweats, or hot flashes. ECOG score is 1, ENMT - She has sinus congestion/drainage. No mouth sores. No sore throat or difficulty swallowing, Hematologic/Lymphatic - No abnormal bruising or bleeding, Respiratory - She has some shortness of breath, she is wearing continous oxygen. She has a cough, which occurs mainly at night or in the mornings. No pleuritic pain or hemoptysis, Cardiovascular - No angina pain. No palpitations, Gastrointestinal - No nausea or vomiting. No heartburn or acid reflux. No diarrhea or constipation. No blood in the stool or black stools, Genitourinary (F) - No dysuria or hematuria. No urinary frequency. No urgency or incontinence, Musculoskeletal - No joint or bone pain, Integumentary - No skin complications, Neurologic - She sometimes wakes up with a headache. No dizziness. She has some tingling in her hands. No other focal neurologic symptoms, Psychiatric - No anxiety or depression. No insomnia. Vital Signs: Performed on Dec 27, 2019 10:23 Height - 59.00 in Weight - 172.4 lbs (HIGH) BSA - 1.73 sq.m BMI - 34.82 (HIGH) Temperature - 97.8 F (LOW) Pulse - 75 /min Respiration - 18 /min BP - 134/86 mm(hg) O2 Sat - 99 % Pain - 0 Physical Examination: Constitutional - She looks pretty good generally, Eyes - Sclerae nonicteric. Conjunctivae clear, ENMT - No lesions noted in the oral cavity, Hematologic/Lymphatic - No cervical or clavicular adenopathy, Respiratory - Lungs sound clear with slightly diminished air movement at the right lung base, Cardiovascular - Heart rhythm is regular. There is a II/ systolic murmur. There is no gallop or rub noted, Breasts - There is just mild residual induration in the right breast. There is persistent inversion of the nipple. There is no residual skin ulceration. There is no axillary adenopathy noted, Abdomen - Soft. Liver and spleen are not enlarged. There is no abdominal mass or ascites noted and there is no inguinal adenopathy, Extremities - No edema, Neurologic - No focal neurologic deficits noted. Lab/Imaging: Test performed on Dec 27, 2019 09:24 Sodium 140 mmol/L Potassium 3.9 mmol/L Chloride 107 mmol/L CO2 25 mmol/L Anion Gap 11.9 BUN 17 mg/dL Creatinine 0.4 mg/dL Cr Clearance (Est) 186.95 mL/min eGFR 163.4 mL/min Glucose 96 mg/dL Calcium 9.1 mg/dL Protein, Total 6.7 g/dL Albumin 3.9 g/dL Globulin 2.8 g/dL Bilirubin, Total 0.2 mg/dL ALT (SGPT) 13 U/L AST (SGOT) 15 U/L Alkaline Phosphatase 82 IU/L WBC 3.5 10 3/uL RBC 3.41 10 6/uL HGB 11.7 g/dL HCT 36.2 % MCV 106.2 fL MCH 34.3 pg MCHC 32.3 g/dL RDW 14.4 % Platelet Count 205 10 3/cmm MPV 9.9 fL Neutrophils 1.66 10 3/uL Lymphocytes 1.4 10 3/uL Monocytes 0.4 10 3/uL Eosinophils 0.1 10 3/uL Basophils 0.0 10 3/uL Neutrophil % 46.9 % Lymphocyte % 40.4 % Monocyte % 9.9 % Eosinophil % 1.4 % Basophils % 1.1 % NRBC % 0 % Impression: 1. Patient with grade 2 infiltrating ductal carcinoma of the right breast, ER/TN positive and HER-2/cole negative. She had locally advanced and metastatic disease at initial diagnosis, including CT evidence of extensive pleural and pulmonary metastatic involvement. 2. She has GERD. 3. She has a history of a long-standing psychiatric disorder, which previously was diagnosed as schizophrenia. She is currently not on any medication for it. On 02/26/2019 she began treatment with palbociclib 125 mg daily on a 21/28 day schedule together with letrozole 2.5 mg daily. As of July 2019 she began her 6th cycle of treatment. She was tolerating it very well. She had evidence of good response by clinical evaluation and by CT scan. She has since then continued her treatment at the same dose and schedule. She has continued to have mild neutropenia, but she has otherwise been tolerating it well. She has significant improvement by clinical evaluation. Plan: She will continue treatment with palbociclib 125 mg daily on a 21/28 day schedule together with letrozole 2.5 mg daily. She will be scheduled for a follow-up visit in 3 months. Signed By: Efren Lainez M.D. <<Signature on File>>
[2020-01-02 04:46] LABS: CA 27.29 545 U/mL (<38)
== END 2019-12-27 09:12 | disposition home or self-care (01) ==
LOC: ONCMED 09:15
PROVIDERS: PCP Nurse Practitioner; Visit Provider Internal Medicine Medical Oncology
DX: C50.911 Malignant neoplasm of unspecified site of right female breast (principal); C78.02 Secondary malignant neoplasm of left lung; C78.01 Secondary malignant neoplasm of right lung; D70.9 Neutropenia, unspecified; K21.9 Gastro-esophageal reflux disease without esophagitis; F20.9 Schizophrenia, unspecified; Z17.0 Estrogen receptor positive status [ER+]; Z79.899 Other long term (current) drug therapy; Z79.811 Long term (current) use of aromatase inhibitors
CPT/HCPCS: 36415; 80053; 85025; 86300; 99214

== ENCOUNTER → 2020-03-03 09:29 | Outpatient (BNVA) | payer MEDICARE, SELFPAY | PROVIDERS: PCP Nurse Practitioner; Visit Provider Nurse Practitioner | DX: F41.1 Generalized anxiety disorder (principal); F60.1 Schizoid personality disorder | CPT/HCPCS: 99213 ==

== ENCOUNTER 2020-03-19 09:11 | Outpatient (CLI) | payer MEDICARE, SELFPAY ==
[2020-03-19 10:34] LABS: Basophils % 0.7 %; Eosinophils # 0.1 10^3/uL (0.0-0.8); Eosinophils % 1.2 %; Hematocrit 35.9 % (37.0-47.0); Hemoglobin 11.6 g/dL (11.5-15.3); Lymphocytes # 1.1 10^3/uL (0.8-4.8); Lymphocytes % 27.5 %; Mean Corpuscular HGB Conc 32.3 g/dL (30.0-36.0); Mean Corpuscular Hemoglobin 35.2 pg (28.0-34.0); Mean Corpuscular Volume 108.8 fL (81-99); Mean Platelet Volume 9.8 fL (7.4-10.4); Monocytes # 0.4 10^3/uL (0.2-0.9); Monocytes % 8.7 %; Neutrophils # 2.48 10^3/uL (1.8-7.7); Neutrophils % 61.4 %; Nucleated Red Blood Cells % 0 %; Platelet Count 218 10^3/cmm (130-400); Red Cell Distribution Width 15.4 % (12.1-15.1)
[2020-03-19 11:05] LABS: Alanine Aminotransferase 17 U/L (0-33); Alkaline Phosphatase 88 IU/L (35-105); Anion Gap 13.4 (5-19); Aspartate Amino Transferase 15 U/L (0-32); Blood Urea Nitrogen 19 mg/dL (6-20); Calcium 8.9 mg/dL (8.5-10.5); Carbon Dioxide 26 mmol/L (22-29); Chloride 105 mmol/L (98-107); Globulin 2.9 g/dL (1.3-4.6); Glomerular Filtration Rate 126.3 mL/min (90-130); Glucose 111 mg/dL (65-115); Osmolality Calculated 293 mOsm/kg (285-295); Potassium 4.4 mmol/L (3.5-5.1); Sodium 140 mmol/L (136-145); Total Bilirubin 0.2 mg/dL (0.15-1.2); Total Protein 6.9 g/dL (6.6-8.7)
[2020-03-19 16:13] LABS: Vitamin B12 362 pg/mL (232-1245)
[2020-03-19 18:43] LABS: Folate Level > 20.0 ng/mL (4.8-37.3)
--- NOTE | 2020-03-23 22:25 | ONC FU_ITS ---
[facility] Patient Note Patient: Alivia Friedman Unit #: [id number]: [id number] Dictated By: Brandon EckertDate of Visit: Mar 19, 2020 Onc MED Follow-Up/Prog Note Chief Complaint: Breast cancer. History of Present Illness: Ms Friedman is a 59 year-old woman with grade 2 infiltrating ductal carcinoma of the right breast, ER/OH positive and HER-2/cole negative. Her disease was locally advanced and metastatic at initial diagnosis in February 2019. She has a history of long-standing psychiatric disorder, previously diagnosed as schizophrenia. She was seen by Alina Holland on 01/15/2019 with complaints of shortness of breath and cough. Chest x-ray at that time showed diffuse bilateral nodular pulmonary opacities and infiltrates, some of which appeared cavitated. Further evaluation with chest CT on 01/26/2019 showed extensive, contiguous pleural-based and pulmonary metastatic disease bilaterally throughout the thorax. There was suspected extension into the superior surface of the liver. A large right rest mass measured 7.5 x 5.3 x 8.1 cm with likely invasion of the underlying chest wall. There was evidence of right axillary, mediastinal, and hilar lymphadenopathy and there was left celiac axis versus left adrenal abnormal lymph node. There appeared to be metastatic involvement in the right third rib. Dr Lainez had seen her initially on 02/01/2019. She had been aware of a mass in her right breast for least 2 or 3 years. In reviewing her record in [facility], she had been getting mammograms on a fairly regular basis until 2012, when her mammogram showed a nodular, asymmetric density in the medial posterior right breast for which additional evaluation with ultrasound was recommended. She failed to have anything further done. At that initial visit she had agreed to undergo biopsy. It was performed the following day, with pathology showing grade 2 infiltrating ductal carcinoma, ER/OH positive and HER-2/cole negative. On 02/26/2019 she began treatment with palbociclib 125 mg daily on a 21/28 day schedule together with letrozole 2.5 mg daily. During subsequent follow-up she did show gradual improvement clinically, and she appeared to tolerate the treatment very well. Restaging chest CT on 09/14/2019 showed decrease in the size of the large breast mass compared to the May 2019 study. Axillary lymph nodes had not changed in size. Thickening of the pleural margins and thickening of the pleura with nodular change at the lung bases also appeared stable. Atelectasis of the lingula and right middle lobe appeared unchanged. There were no distinct nodules noted. A middle mediastinal lymph node appeared unchanged. She has continued treatment with letrozole in combination with palbociclib. She is tolerating it well with disease response. Ms. Friedman is here today for follow-up. She is accompanied by her friend, Adela Diana. Ms. Friedman has no new concerns today. She remains very active. She continues walking and recycling and tolerating this well. She does continue to require continuous oxygen therapy due to the extensive pleural and diaphragmatic metastatic disease. Her sitting O2 sat with continuous oxygen is 97% walking with oxygen was 96% initial sitting on room air was 91% and her walking after 1 minute on room air was 88%. She continues to require continuous oxygen supplementation. Length of need is 99. She states she is eating well. She denies any fever or chills. She has had no known COVID's exposure, symptoms or personal testing. She denies any hemoptysis. She denies any orthopnea. She denies chest pain or palpitations. She states her bowels and bladder are normal for her. Her appetite is good. She denies any pain. She denies any current lower extremity edema. She has some occasionally but comes and goes. She denies mouth sores. Her ECOG is 0. Past Medical History: Gastroesophageal reflux disease History of long-standing psychiatric disorder Past Surgical History: [place] teeth extraction Influeza vaccine in 2019 Pneumonia vaccine in 2019 Allergies: Azithromycin Medications: Albuterol Sulfate 1 puff(s) (of 108 (90 base) mcg/act) Aerosol Powder, Breath Activated Inhalation daily PRN Calcium 600+D3 Plus Minerals 2 Tablet (of 500-700 mg - Units) Tablet, chewable Oral daily Ibrance 1 Capsule (of 125 mg) Oral daily Ibuprofen 4 Tablet (of 200 mg) Oral PRN Letrozole 1 Tablet (of 2.5 mg) Oral daily Protonix 1 Tablet (of 40 mg) Tablet, enteric coated Oral daily PRN Family History: Ms. Friedman's mother is alive. Ms. Friedman's father at age 78: congestive heart failure, and type II diabetes. Ms. Friedman has 1 sister who is alive. Father had heart disease, COPD, and diabetes. He at age 78. Mother is still living at age 81 and is apparently in good health. One sister is in good health. 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 Ms. Friedman has never smoked. She has no history of drinking. She is a nonsmoker. She does not drink alcohol. Review Of Symptoms: Constitutional Denies fevers, chills, night sweats, excessive fatigue or weight loss. Remains very active. Allergic/Immunologic No reactions. Eyes Denies significant visual changes. No diplopia. No amaurosis. ENMT Denies changes in hearing, sore throat, difficulty or changes in swallowing ability, and/or sinus drainage. Hematologic/Lymphatic Denies easy bruising or bleeding. The patient denies any tender or palpable lymph nodes. Breasts Right breast mass is smaller and it is not draining/bleeding. Respiratory Still short of breath with moderate exertion, wears oxygen at hs otherwise has orthopnea. Cardiovascular Denies anginal chest pain, palpitations or orthopnea. Gastrointestinal Denies nausea, vomiting, diarrhea, GI bleeding, or constipation. Denies change in bowel habits and/or stool color, no heartburn or early satiety. Genitourinary (F) No hematuria, hesitancy, incontinence, vaginal bleeding, discharge or other problems with urination. Musculoskeletal Denies joint pain, swelling or redness. No decreased range of motion. Integumentary Denies chronic rashes, inflammation, ulcerations or skin changes. Neurologic Denies headache, blurred vision, and no areas of focal weakness or numbness. Normal gait. No sensory problems. Psychiatric Denies insomnia, depression, chele or mood swings. Vital Signs: Performed on Mar 19, 2020 11:13 Height - 59.00 in Weight - 177.6 lbs (HIGH) BSA - 1.75 sq.m BMI - 35.87 (HIGH) Temperature - 98.2 F (LOW) Pulse - 74 /min Respiration - 76 /min (HIGH) BP - 115/75 mm(hg) O2 Sat - 99 % Pain - 0,0 - Fully active, able to carry on all predisease activities without restrictions. (ECOG) Physical Examination: Constitutional Alert, oriented, no acute distress. Skin pink, warm and dry. Head Normocephalic; atraumatic. Eyes Conjunctivae and sclerae are clear and without icterus. Pupils are reactive and equal. ENMT No oral exudates, ulcers, masses, thrush or mucositis. Oropharynx clear. Tongue normal. Neck Supple without masses or thyromegaly. No jugular venous distension. Hematologic/Lymphatic No petechiae; purpura on forearms intermittently. No tender or palpable lymph nodes in the cervical or supraclavicular areas. Respiratory Lungs are clear to auscultation without rhonchi or wheezing. Cardiovascular Regular rate and rhythm of heart without murmurs,clicks, gallops or rubs. Breasts Right breast mass soft <2 cm in diameter. Moderately pink discoloration but overall dramatically better than my last exam. Back/Spine Non-tender to palpation. Extremities No visible deformities, no cyanosis, clubbing or edema. Musculoskeletal No tenderness or swelling, normal range of motion without obvious weakness. Integumentary No rashes or lesions. Neurologic No sensory or motor deficits, normal cerebellar function, normal gait. Psychiatric Alert and oriented times three. Coherent speech. Verbalizes understanding of our discussions today. Laboratory:Test performed on Mar 19, 2020 09:40 Folate, Serum > 20.0 ng/mL Sodium 140 mmol/L Vitamin B12 362 pg/mL Potassium 4.4 mmol/L Chloride 105 mmol/L CO2 26 mmol/L Anion Gap 13.4 BUN 19 mg/dL Creatinine 0.5 mg/dL Cr Clearance (Est) 154.07 mL/min eGFR 126.3 mL/min Glucose 111 mg/dL Osmolality - Calculated 293 mOsm/kg Calcium 8.9 mg/dL Protein, Total 6.9 g/dL Albumin 4.0 g/dL Globulin 2.9 g/dL Bilirubin, Total 0.2 mg/dL ALT (SGPT) 17 U/L AST (SGOT) 15 U/L Alkaline Phosphatase 88 IU/L WBC 4.0 10 3/uL RBC 3.30 10 6/uL HGB 11.6 g/dL HCT 35.9 % MCV 108.8 fL MCH 35.2 pg MCHC 32.3 g/dL RDW 15.4 % Platelet Count 218 10 3/cmm MPV 9.8 fL Neutrophils 2.48 10 3/uL Lymphocytes 1.1 10 3/uL Monocytes 0.4 10 3/uL Eosinophils 0.1 10 3/uL Basophils 0.0 10 3/uL Neutrophil % 61.4 % Lymphocyte % 27.5 % Monocyte % 8.7 % Eosinophil % 1.2 % Basophils % 0.7 % NRBC % 0 % Test performed on Dec 27, 2019 09:24 CA 27.29 545 U/mL Impression: 1. Patient with grade 2 infiltrating ductal carcinoma of the right breast, ER/OH positive and HER-2/cole negative. She had locally advanced and metastatic disease at initial diagnosis, including CT evidence of extensive pleural and pulmonary metastatic involvement. 2. She has GERD. 3. She has a history of a long-standing psychiatric disorder, which previously was diagnosed as schizophrenia. She is currently not on any medication for it. On 02/26/2019 she began treatment with palbociclib 125 mg daily on a 21/28 day schedule together with letrozole 2.5 mg daily. As of July 2019 she began her 6th cycle of treatment. She was tolerating it very well. She had evidence of good response by clinical evaluation and by CT scan. She has since then continued her treatment at the same dose and schedule. She has continued to have mild neutropenia, but she has otherwise been tolerating it well. She has significant improvement by clinical evaluation. Plan: 1. Proceed with palbociclib 125 mg daily on a 21/28 day schedule together with letrozole 2.5 mg daily. 2. Labs from today were reviewed in detail and discussed with Alivia and a copy was given to her. WBC 4.0, hemoglobin 11.6, MCV is 108.8 MCH is 35.2. Platelets 218,000 neutrophils 2500. Potassium 4.4 random glucose 111 creatinine 0.5 LFTs are normal. Her last tumor marker CA-27-29 was 545 on December 27, 2019. Her result from today is pending. 3. Her last CT imaging was September 14, 2019 we will plan for restaging imaging on her prior to her follow-up in 3 months. 4. She does not recall having a bone density. We will set her up for bone density testing due to her postmenopausal state, custodial aromatase inhibitor therapy, current chemotherapy for metastatic breast cancer. She is also on long-term calcium vitamin D replacement. She has had long-term use of PPI for gastritis. 5. I did request a vitamin B12 and folate be added to the blood in the lab due to elevated MCV and MCH. 6. We will plan to seenathalie Friedman back in 3 months with CBC CMP and CA-27-29. 7. She was instructed to call us in the interim if questions or problems arise. Signed By: Lucho Eckert, AOCNP Efren Lainez MD <<Signature on File>>
[2020-03-25 16:41] LABS: CA 27.29 243 U/mL (<38)
== END 2020-03-19 09:12 | disposition home or self-care (01) ==
PROVIDERS: Visit Provider Nurse Practitioner
DX: C50.811 Malignant neoplasm of overlapping sites of right female breast (principal); Z17.0 Estrogen receptor positive status [ER+]; C78.2 Secondary malignant neoplasm of pleura; C78.01 Secondary malignant neoplasm of right lung; C78.02 Secondary malignant neoplasm of left lung; K21.9 Gastro-esophageal reflux disease without esophagitis; F20.9 Schizophrenia, unspecified; Z79.899 Other long term (current) drug therapy
CPT/HCPCS: 80053; 82607; 82746; 85025; 86300; 99214

== ENCOUNTER 2020-06-25 11:56 | Outpatient (CLI) | payer MEDICARE, SELFPAY ==
[2020-06-25 12:52] LABS: Basophils # 0.1 10^3/uL (0.0-0.1); Basophils % 1.8 %; Eosinophils # 0.1 10^3/uL (0.0-0.8); Eosinophils % 1.5 %; Hematocrit 35.9 % (37.0-47.0); Hemoglobin 11.4 g/dL (11.5-15.3); Lymphocytes # 1.2 10^3/uL (0.8-4.8); Lymphocytes % 30.3 %; Mean Corpuscular HGB Conc 31.8 g/dL (30.0-36.0); Mean Corpuscular Hemoglobin 34.2 pg (28.0-34.0); Mean Corpuscular Volume 107.8 fL (81-99); Mean Platelet Volume 9.6 fL (7.4-10.4); Monocytes # 0.3 10^3/uL (0.2-0.9); Monocytes % 7.3 %; Neutrophils # 2.34 10^3/uL (1.8-7.7); Neutrophils % 58.6 %; Nucleated Red Blood Cells % 0 %; Platelet Count 369 10^3/cmm (130-400); Red Blood Count 3.33 10^6/uL (4.1-5.3); Red Cell Distribution Width 14.5 % (12.1-15.1)
[2020-06-25 13:21] LABS: Alanine Aminotransferase 20 U/L (0-33); Albumin Level 3.9 g/dL (3.5-5.2); Alkaline Phosphatase 99 IU/L (35-105); Anion Gap 13.1 (5-19); Aspartate Amino Transferase 19 U/L (0-32); Blood Urea Nitrogen 22 mg/dL (8-23); Calcium 8.8 mg/dL (8.5-10.5); Carbon Dioxide 28 mmol/L (22-29); Chloride 105 mmol/L (98-107); Globulin 2.9 g/dL (1.3-4.6); Glomerular Filtration Rate 85.4 mL/min (90-130); Glucose 91 mg/dL (65-115); Osmolality Calculated 297 mOsm/kg (285-295); Potassium 4.1 mmol/L (3.5-5.1); Sodium 142 mmol/L (136-145); Total Bilirubin 0.3 mg/dL (0.15-1.2); Total Protein 6.8 g/dL (6.6-8.7)
[2020-06-26 15:08] LABS: CA 27.29 118 U/mL (<38)
--- NOTE | 2020-06-28 17:55 | ONC FU_ITS ---
Dr. Lainez Patient Follow-Up Note Patient: Alivia Minaya Unit #: [id number]: 1960 Dicatated By: Efren Lainez M.D.Date of Visit:Jun 25, 2020 Onc Med Follow-up/Prog Note Chief Complaint: Breast cancer. History of Present Illness: This is a 60 year-old woman with grade 2 infiltrating ductal carcinoma of the right breast, ER/ME positive and HER-2/cole negative. Her disease was locally advanced and metastatic at initial diagnosis in February 2019. She has a history of long-standing psychiatric disorder, previously diagnosed as schizophrenia. She was seen by Alina Holland on 01/15/2019 with complaints of shortness of breath and cough. Chest x-ray at that time showed diffuse bilateral nodular pulmonary opacities and infiltrates, some of which appeared cavitated. Further evaluation with chest CT on 01/26/2019 showed extensive, contiguous pleural-based and pulmonary metastatic disease bilaterally throughout the thorax. There was suspected extension into the superior surface of the liver. A large right rest mass measured 7.5 x 5.3 x 8.1 cm with likely invasion of the underlying chest wall. There was evidence of right axillary, mediastinal, and hilar lymphadenopathy and there was left celiac axis versus left adrenal abnormal lymph node. There appeared to be metastatic involvement in the right third rib. I had seen her initially on 02/01/2019. She had been aware of a mass in her right breast for least 2 or 3 years. In reviewing her record in [employer], she had been getting mammograms on a fairly regular basis until 2012, when her mammogram showed a nodular, asymmetric density in the medial posterior right breast for which additional evaluation with ultrasound was recommended. She failed to have anything further done. At that initial visit she had agreed to undergo biopsy. It was performed the following day, with pathology showing grade 2 infiltrating ductal carcinoma, ER/ME positive and HER-2/cole negative. On 02/26/2019 she began treatment with palbociclib 125 mg daily on a 21/ day schedule together with letrozole 2.5 mg daily. During subsequent follow-up she did show gradual improvement clinically, and she appeared to tolerate the treatment very well. Restaging chest CT on 09/14/2019 showed decrease in the size of the large breast mass compared to the May 2019 study. Axillary lymph nodes had not changed in size. Thickening of the pleural margins and thickening of the pleura with nodular change at the lung bases also appeared stable. Atelectasis of the lingula and right middle lobe appeared unchanged. There were no distinct nodules noted. A middle mediastinal lymph node appeared unchanged. She continued treatment with letrozole in combination with palbociclib. She is seen for a followup visit. She has been feeling pretty good generally. Her main complaint is that for the past couple of weeks she has been having pain in her left leg, starting in the buttock area and radiating all the way down the back of her leg. The pain does tend to be worse with weightbearing. However, she has pretty good activity, she has been taking long walks and she is able to do light work at home. ECOG score is 1. Her appetite is good. She has gained weight. She has not had fever, night sweats, or hot flashes. She continues to have some shortness of breath with activity, and and she is still on oxygen. She has quite a bit of cough, productive of clear sputum. She does not complain of chest pain. She sometimes has acid reflux. She has no other GI or complaints. She has no other joint or bone pain. She does not complain of headache or dizziness. She says her hands occasionally tingle. She has no other focal neurologic symptoms. Medications: Albuterol Sulfate 1 puff(s) (of 108 (90 base) mcg/act) Aerosol Powder, Breath Activated Inhalation daily PRN, Calcium 600+D3 Plus Minerals 2 Tablet (of 500-700 mg - Units) Tablet, chewable Oral daily, Ibrance 1 Capsule (of 125 mg) Oral daily, Ibuprofen 4 Tablet (of 200 mg) Oral PRN, Letrozole 1 Tablet (of 2.5 mg) Oral daily, Protonix 1 Tablet (of 40 mg) Tablet, enteric coated Oral daily PRN Allergies: Azithromycin Vital Signs: Performed on Jun 25, 2020 13:34 Height - 59.00 in Weight - 181.6 lbs (HIGH) BSA - 1.77 sq.m BMI - 36.68 (HIGH) Temperature - 97.9 F (LOW) Pulse - 91 /min Respiration - 18 /min BP - 124/77 mm(hg) O2 Sat - 95 % (LOW) Pain - 3 Physical Examination: Constitutional - She looks pretty good generally, Eyes - Sclerae nonicteric. Conjunctivae clear, ENMT - No lesions noted in the oral cavity, Hematologic/Lymphatic - No cervical or clavicular adenopathy, Respiratory - Lungs sound clear with slightly diminished air movement on the right, Cardiovascular - Heart rhythm is regular. There is a II/ systolic murmur. There is no gallop or rub noted, Breasts - The right breast remains indurated and there is persistent nipple inversion, but there is no discrete mass palpable and there is no residual erythema. There is no axillary adenopathy noted, Abdomen - Soft. Liver and spleen are not enlarged. There is no abdominal mass or ascites noted and there is no inguinal adenopathy, Extremities - No edema, Neurologic - No focal neurologic deficits noted. Lab/Imaging: Test performed on Jun 25, 2020 12:15 Sodium 142 mmol/L Potassium 4.1 mmol/L Chloride 105 mmol/L CO2 28 mmol/L Anion Gap 13.1 BUN 22 mg/dL Creatinine 0.7 mg/dL Cr Clearance (Est) 111.14 mL/min eGFR 85.4 mL/min Glucose 91 mg/dL Osmolality - Calculated 297 mOsm/kg Calcium 8.8 mg/dL Protein, Total 6.8 g/dL Albumin 3.9 g/dL Globulin 2.9 g/dL Bilirubin, Total 0.3 mg/dL ALT (SGPT) 20 U/L AST (SGOT) 19 U/L Alkaline Phosphatase 99 IU/L WBC 4.0 10 3/uL RBC 3.33 10 6/uL HGB 11.4 g/dL HCT 35.9 % MCV 107.8 fL MCH 34.2 pg MCHC 31.8 g/dL RDW 14.5 % Platelet Count 369 10 3/cmm MPV 9.6 fL Neutrophils 2.34 10 3/uL Lymphocytes 1.2 10 3/uL Monocytes 0.3 10 3/uL Eosinophils 0.1 10 3/uL Basophils 0.1 10 3/uL Neutrophil % 58.6 % Lymphocyte % 30.3 % Monocyte % 7.3 % Eosinophil % 1.5 % Basophils % 1.8 % NRBC % 0 % CA 27.29 118 U/mL Historic Problem List: 1. Grade 2 infiltrating ductal carcinoma of the right breast, ER/ME positive and HER-2/cole negative. She had locally advanced and metastatic disease at initial diagnosis, including CT evidence of extensive pleural and pulmonary metastatic involvement. 2. She has had a very good clinical response to treatment with palbociclib in combination with letrozole. 3. GERD. 4. She has a history of a long-standing psychiatric disorder, which previously was diagnosed as schizophrenia. She is currently not on any medication for it. Problems Addressed with this Encounter and Plan: Grade 2 infiltrating ductal carcinoma of the right breast, locally advanced and metastatic, ER/ME positive and HER-2/cole negative. In February 2019 she began treatment with palbociclib in combination with letrozole. She has had a very good response, both objectively and subjectively. At this point she continues to do very well clinically, and she there has been continued decline in her CA 27-29 level. She has had mild to moderately severe neutropenia with the treatment, which does require ongoing monitoring. She has otherwise tolerated it very well. She will continue her same treatment with palbociclib 125 mg daily on a 21/28-day schedule together with letrozole 2.5 mg daily. She will be scheduled for a follow-up visit in 3 months. Signed By: Efren Lainez M.D. <<Signature on File>>
== END 2020-06-25 11:57 | disposition home or self-care (01) ==
LOC: ONCMED 12:00
PROVIDERS: Visit Provider Internal Medicine Medical Oncology
DX: C50.811 Malignant neoplasm of overlapping sites of right female breast (principal); C78.2 Secondary malignant neoplasm of pleura; C78.01 Secondary malignant neoplasm of right lung; C78.02 Secondary malignant neoplasm of left lung; Z17.0 Estrogen receptor positive status [ER+]; D70.1 Agranulocytosis secondary to cancer chemotherapy; T45.1X5A Adverse effect of antineoplastic and immunosuppressive drugs, initial encounter; K21.9 Gastro-esophageal reflux disease without esophagitis; F20.9 Schizophrenia, unspecified; Z79.899 Other long term (current) drug therapy
CPT/HCPCS: 36415; 80053; 85025; 86300; 99214

== ENCOUNTER → 2020-08-25 07:56 | Outpatient (BNVA) | payer MEDICARE, SELFPAY | PROVIDERS: Visit Provider Nurse Practitioner | DX: F60.1 Schizoid personality disorder; F41.1 Generalized anxiety disorder | CPT/HCPCS: 99214 ==

== ENCOUNTER 2020-09-29 08:13 | Outpatient (CLI) | payer MEDICARE, SELFPAY ==
[2020-09-29 09:24] LABS: Basophils # 0.1 10^3/uL (0.0-0.1); Basophils % 1.4 %; Eosinophils # 0.1 10^3/uL (0.0-0.8); Eosinophils % 2.6 %; Hematocrit 36.5 % (37.0-47.0); Hemoglobin 11.7 g/dL (11.5-15.3); Lymphocytes # 1.4 10^3/uL (0.8-4.8); Lymphocytes % 41.1 %; Mean Corpuscular HGB Conc 32.1 g/dL (30.0-36.0); Mean Corpuscular Hemoglobin 34.3 pg (28.0-34.0); Mean Platelet Volume 9.9 fL (7.4-10.4); Monocytes # 0.4 10^3/uL (0.2-0.9); Monocytes % 11.5 %; Neutrophils # 1.51 10^3/uL (1.8-7.7); Neutrophils % 43.4 %; Nucleated Red Blood Cells % 0 %; Platelet Count 215 10^3/cmm (130-400); Red Blood Count 3.41 10^6/uL (4.1-5.3); Red Cell Distribution Width 15.2 % (12.1-15.1); White Blood Count 3.5 10^3/uL (4.0-10.0)
[2020-09-29 09:49] LABS: Alanine Aminotransferase 14 U/L (0-33); Albumin Level 3.8 g/dL (3.5-5.2); Alkaline Phosphatase 92 IU/L (35-105); Anion Gap 12.9 (5-19); Aspartate Amino Transferase 14 U/L (0-32); Blood Urea Nitrogen 19 mg/dL (8-23); Calcium 8.2 mg/dL (8.5-10.5); Carbon Dioxide 26 mmol/L (22-29); Chloride 107 mmol/L (98-107); Globulin 2.4 g/dL (1.3-4.6); Glomerular Filtration Rate 125.9 mL/min (90-130); Glucose 97 mg/dL (65-115); Osmolality Calculated 296 mOsm/kg (285-295); Potassium 3.9 mmol/L (3.5-5.1); Sodium 142 mmol/L (136-145); Total Bilirubin 0.3 mg/dL (0.15-1.2); Total Protein 6.2 g/dL (6.6-8.7)
[2020-09-29 10:39] LABS: Slide Review Slide Review Perform
[2020-09-30 09:27] LABS: CA 27.29 79 U/mL (<38)
--- NOTE | 2020-10-13 21:21 | ONC FU_ITS ---
[facility] Patient Note Patient: Alivia Friedman Unit #: [id number]: [id number] Dictated By: Brandon EckertDate of Visit: Sep 29, 2020 Onc MED Follow-Up/Prog Note Chief Complaint: Breast cancer. History of Present Illness: Ms Friedman is a 60 year-old woman with grade 2 infiltrating ductal carcinoma of the right breast, ER/GA positive and HER-2/cole negative. Her disease was locally advanced and metastatic at initial diagnosis in February 2019. She has a history of long-standing psychiatric disorder, previously diagnosed as schizophrenia. She was seen by Alina Holland on 01/15/2019 with complaints of shortness of breath and cough. Chest x-ray at that time showed diffuse bilateral nodular pulmonary opacities and infiltrates, some of which appeared cavitated. Further evaluation with chest CT on 01/26/2019 showed extensive, contiguous pleural-based and pulmonary metastatic disease bilaterally throughout the thorax. There was suspected extension into the superior surface of the liver. A large right rest mass measured 7.5 x 5.3 x 8.1 cm with likely invasion of the underlying chest wall. There was evidence of right axillary, mediastinal, and hilar lymphadenopathy and there was left celiac axis versus left adrenal abnormal lymph node. There appeared to be metastatic involvement in the right third rib. Dr Lainez had seen her initially on 02/01/2019. She had been aware of a mass in her right breast for least 2 or 3 years. In reviewing her record in [employer] [facility], she had been getting mammograms on a fairly regular basis until 2012, when her mammogram showed a nodular, asymmetric density in the medial posterior right breast for which additional evaluation with ultrasound was recommended. She failed to have anything further done. At that initial visit she had agreed to undergo biopsy. It was performed the following day, with pathology showing grade 2 infiltrating ductal carcinoma, ER/GA positive and HER-2/cole negative. On 02/26/2019 she began treatment with palbociclib 125 mg daily on a 21/28 day schedule together with letrozole 2.5 mg daily. During subsequent follow-up she did show gradual improvement clinically, and she appeared to tolerate the treatment very well. Restaging chest CT on 09/14/2019 showed decrease in the size of the large breast mass compared to the May 2019 study. Axillary lymph nodes had not changed in size. Thickening of the pleural margins and thickening of the pleura with nodular change at the lung bases also appeared stable. Atelectasis of the lingula and right middle lobe appeared unchanged. There were no distinct nodules noted. A middle mediastinal lymph node appeared unchanged. She continued treatment with letrozole in combination with palbociclib. Ms Friedman is here today for followup. She states she has been walking and doing her recycling without any new problems. She has had some left hip pain that has come and gone. She states that it is a burning pain. She has no worsening of the pain since her visit with Dr. Lainez. She states it may be some better she is able to get up and move around better now. She denies any new shortness of breath orthopnea. She denies any fever or chills. She has had no chest pain or palpitations. She denies any nausea or vomiting. She denies any diarrhea or constipation. She states her bowels and bladder are normal for her. She has had no neuropathy. She is had no cold symptoms or signs of infection. She states that she has not had any colds for quite some time. She has had no breast concerns. She states overall she is doing well. Her ECOG is 0. Past Medical History: Gastroesophageal reflux disease History of long-standing psychiatric disorder Past Surgical History: Sieper teeth extraction Covid vaccine #1 in 2020 Covid vaccine #2 in 2020 Influeza vaccine in 2019 Pneumonia vaccine in 2019 Allergies: Azithromycin Medications: Albuterol Sulfate 1 puff(s) (of 108 (90 base) mcg/act) Aerosol Powder, Breath Activated Inhalation daily PRN Calcium 600+D3 Plus Minerals 2 Tablet (of 500-700 mg - Units) Tablet, chewable Oral daily Ibrance 1 Capsule (of 125 mg) Oral daily Ibuprofen 4 Tablet (of 200 mg) Oral PRN Letrozole 1 Tablet (of 2.5 mg) Oral daily Protonix 1 Tablet (of 40 mg) Tablet, enteric coated Oral daily PRN Family History: Ms. Friedman's mother is alive. Ms. Friedman's father at age 78: congestive heart failure, and type II diabetes. Ms. Friedman has 1 sister who is alive. Father had heart disease, COPD, and diabetes. He at age 78. Mother is still living at age 81 and is apparently in good health. One sister is in good health. Social History: Ms. 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 Ms. Friedman has never smoked. She has no history of drinking. She is a nonsmoker. She does not drink alcohol. Review Of Symptoms: see above Vital Signs: Performed on Sep 29, 2020 10:02 Height - 59.00 in Weight - 187.4 lbs (HIGH) BSA - 1.79 sq.m BMI - 37.85 (HIGH) Temperature - 97.6 F (LOW) Pulse - 80 /min Respiration - 18 /min BP - 146/89 mm(hg) (HIGH) O2 Sat - 94 % (LOW) Pain - 5 Fatigue - 2,0 - Fully active, able to carry on all predisease activities without restrictions. (ECOG) Physical Examination: Constitutional Alert, oriented, no acute distress. Skin pink, warm and dry. Head Normocephalic; atraumatic. Eyes Conjunctivae and sclerae are clear and without icterus. Pupils are reactive and equal. ENMT No oral exudates, ulcers, masses, thrush or mucositis. Oropharynx clear. Tongue normal. Neck Supple without masses or thyromegaly. No jugular venous distension. Hematologic/Lymphatic No petechiae; purpura on forearms intermittently. No tender or palpable lymph nodes in the cervical or supraclavicular areas. Respiratory Lungs are clear to auscultation without rhonchi or wheezing. Cardiovascular Regular rate and rhythm of heart without murmurs,clicks, gallops or rubs. Back/Spine Non-tender to palpation. Extremities No visible deformities, no cyanosis, clubbing or edema. Musculoskeletal No tenderness or swelling, normal range of motion without obvious weakness. Integumentary No rashes or lesions. Neurologic No sensory or motor deficits, normal cerebellar function, normal gait. Psychiatric Alert and oriented times three. Coherent speech. Verbalizes understanding of our discussions today. Laboratory:Test performed on Sep 29, 2020 08:27 Sodium 142 mmol/L Potassium 3.9 mmol/L Chloride 107 mmol/L CO2 26 mmol/L Anion Gap 12.9 BUN 19 mg/dL Creatinine 0.5 mg/dL Cr Clearance (Est) 160.56 mL/min eGFR 125.9 mL/min Glucose 97 mg/dL Osmolality - Calculated 296 mOsm/kg Calcium 8.2 mg/dL Protein, Total 6.2 g/dL Albumin 3.8 g/dL Globulin 2.4 g/dL Bilirubin, Total 0.3 mg/dL ALT (SGPT) 14 U/L AST (SGOT) 14 U/L Alkaline Phosphatase 92 IU/L WBC 3.5 10 3/uL RBC 3.41 10 6/uL HGB 11.7 g/dL HCT 36.5 % MCV 107.0 fL MCH 34.3 pg MCHC 32.1 g/dL RDW 15.2 % Platelet Count 215 10 3/cmm MPV 9.9 fL Neutrophils 1.51 10 3/uL Lymphocytes 1.4 10 3/uL Monocytes 0.4 10 3/uL Eosinophils 0.1 10 3/uL Basophils 0.1 10 3/uL Neutrophil % 43.4 % Lymphocyte % 41.1 % Monocyte % 11.5 % Eosinophil % 2.6 % Basophils % 1.4 % NRBC % 0 % CBC Slide Review Slide Review Perform REVIEW AGREES WITH AUTOMATED DIFF CA 27.29 79 U/mL Impression: 1. Grade 2 infiltrating ductal carcinoma of the right breast, ER/GA positive and HER-2/cole negative. She had locally advanced and metastatic disease at initial diagnosis, including CT evidence of extensive pleural and pulmonary metastatic involvement. 2. She has had a very good clinical response to treatment with palbociclib in combination with letrozole. 3. GERD. 4. She has a history of a long-standing psychiatric disorder, which previously was diagnosed as schizophrenia. She is currently not on any medication for it. Plan: PROBLEMS ADDRESSED TODAY 1. Grade 2 infiltrating ductal carcinoma of the right breast, locally advanced and metastatic, ER/GA positive and HER-2/cole negative. In February 2019 she began treatment with palbociclib in combination with letrozole. She has had a very good response, both objectively and subjectively. At this point she continues to do very well clinically, and she there has been continued decline in her CA 27-29 level. She has had mild to moderately severe neutropenia with the treatment, which does require ongoing monitoring. She has otherwise tolerated it very well. A. Proceed with palbociclib 125 mg daily on a 21/28-day schedule together with letrozole 2.5 mg daily. B. Today's labs were reviewed in detail and discussed with Ms Friedman and a copy was given to her. WBC 3.5, hemoglobin 11.7, platelets turned 15,000, ANC is 1510. Potassium 3.9 creatinine 0.5 random glucose 97 calcium 8.2 LFTs are normal her CA 27-29 was 79 which is improved from June 25, 2020 at which time was 118 and 545 on December 27, 2019. C. She is due for restaging CT of the chest abdomen pelvis as her last scans were August 2019. 2. Left hip pain/suspicious for sciatica A. We will continue observation for now. She is walking and doing recycling more than she had been over the last couple of months. She does have a bit of a limp today but when examined there is no particular pain. She did have improvement of her walk as she was leaving the clinic today. B. If she has continued problems she may need MRI of the hip or lumbar lower thoracic spine but for now she feels her pain is stable. 3. Follow-up plan A. We will plan to see her back in 3 months with CBC CMP and CA 27-29. B. We will arrange for restaging CT of the chest abdomen pelvis and call her with results of that once that is available. C. She and her caregiver were encouraged to call us if she has any signs or symptoms of fever chills or any signs of infection. Thus far with her ANC being borderline she has not had any symptoms of illness. There is been no evidence of progression of her breast cancer. D. Ms. Friedman was instructed to contact us in interim should questions or problems arise. Signed By: Brandon Eckert-, [facility] Efren Lainez MD <<Signature on File>>
== END 2020-09-29 08:14 | disposition home or self-care (01) ==
LOC: ONCMED 08:15
PROVIDERS: Visit Provider Nurse Practitioner
DX: C50.811 Malignant neoplasm of overlapping sites of right female breast (principal); C78.02 Secondary malignant neoplasm of left lung; C78.01 Secondary malignant neoplasm of right lung; D70.1 Agranulocytosis secondary to cancer chemotherapy; T45.1X5A Adverse effect of antineoplastic and immunosuppressive drugs, initial encounter; K21.9 Gastro-esophageal reflux disease without esophagitis; F20.9 Schizophrenia, unspecified; Z79.899 Other long term (current) drug therapy; M25.552 Pain in left hip
CPT/HCPCS: 80053; 85025; 86300; 99214

== ENCOUNTER 2020-10-08 11:22 | Outpatient (CLI) | payer MEDICARE, MEDICAID, SELFPAY ==
--- NOTE | 2020-10-08 11:49 | CT_ITS ---
WS: [id number] CT CHEST, ABDOMEN AND PELVIS WITH CONTRAST HISTORY: METASTATIC BREAST CANCER TECHNIQUE: Contiguous 5 mm axial imaging performed through the chest, abdomen and pelvis with IV cont rast, oral contrast has been provided. Coronal and sagittal reformats chest. Coronal and sagittal ref ormats through the abdomen and pelvis. All CT scans at [facility] use at least one of the se dose optimization techniques: automated exposure control; mA and/or kV adjustment per patient size (includes targeted exams where dose is matched to clinical indication); or iterative reconstruction. CONTRAST: Omnipaque 300; 95 mL IV. DLP: 2252.16 mGycm COMPARISON: 09/14/[address]: Mild volume loss bilaterally. There is extensive nodularity and pleural thickening througho ut the thorax. Overall the nodularity has mildly improved. There is mild thickening along the fissure s which has not progressed. Additional pleural thickening along the diaphragmatic surfaces has also i mproved. Normal size aorta and pulmonary artery. Heavily calcified lymph nodes at the RIGHT hilum. Sm all bilateral axillary lymph nodes have slightly decreased in size. Residual mass in the medial RIGHT breast measures 1.7 x 4.4 cm with improvement. No mediastinal lymph nodes. Abdomen CT: Moderate-sized hiatal hernia. Liver, gallbladder and pancreas are negative. No adrenal ma ss. Normal pancreas. Kidneys are normal. No ascites or adenopathy. Visualized GI tract is negative for obstruction or mucosal thickening. The appendix is normal. [place] us diverticula in the sigmoid colon without acute diverticulitis. Pelvic CT: No free fluid or adenopathy. Slightly bulky uterus extends to the RIGHT of midline. May be due to fibroid. No adenopathy or fluid. No osteoblastic or osteolytic bone disease is identified. Similar appearance to the visualized spine as on the prior study with degenerative changes. Small sclerotic foci within T12 and T8 are stable si nce 09/14/2019. CT/CT chest abd pel w con* IMPRESSION: 1. Persistent pleural thickening and nodularity noted bilaterally but improved since 09/14/2019. 2. No new pulmonary mass. 3. Residual mass at the medial RIGHT breast measures 1.7 x 4.4 cm has also con tinued to decrease in size. 4. No metastatic disease to the liver or adrenal glands. No adenopathy within the chest, abdomen or pelvis. 5. Moderate size hiatal hernia. 6. Diverticulosis without acute diverticulitis.
[2020-10-08] MEDS: iohexol 300 mg/mL 50 mL Btl PO (12:09)
[2020-10-08] MEDS: iohexol 300 mg/mL 100 mL Btl IV (13:31)
== END 2020-10-08 11:23 | disposition home or self-care (01) ==
PROVIDERS: PCP Nurse Practitioner; Visit Provider Nurse Practitioner
DX: C50.811 Malignant neoplasm of overlapping sites of right female breast (principal); K57.90 Diverticulosis of intestine, part unspecified, without perforation or abscess without bleeding; K44.9 Diaphragmatic hernia without obstruction or gangrene
CPT/HCPCS: 71260; 74177; Q9967

== ENCOUNTER 2020-12-31 13:29 | Outpatient (CLI) | payer MEDICARE, MEDICAID, SELFPAY ==
[2020-12-31 14:22] LABS: Basophils # 0.1 10^3/uL (0.0-0.1); Basophils % 1.4 %; Eosinophils # 0.1 10^3/uL (0.0-0.8); Eosinophils % 1.6 %; Hematocrit 34.4 % (37.0-47.0); Hemoglobin 11.2 g/dL (11.5-15.3); Lymphocytes # 1.5 10^3/uL (0.8-4.8); Lymphocytes % 28.8 %; Mean Corpuscular HGB Conc 32.6 g/dL (30.0-36.0); Mean Corpuscular Volume 107.5 fL (81-99); Mean Platelet Volume 9.7 fL (7.4-10.4); Monocytes # 0.8 10^3/uL (0.2-0.9); Monocytes % 14.7 %; Neutrophils # 2.73 10^3/uL (1.8-7.7); Neutrophils % 53.3 %; Nucleated Red Blood Cells % 0 %; Platelet Count 255 10^3/cmm (130-400); White Blood Count 5.1 10^3/uL (4.0-10.0)
[2020-12-31 14:34] LABS: Alanine Aminotransferase 18 U/L (0-33); Albumin Level 3.8 g/dL (3.5-5.2); Alkaline Phosphatase 102 IU/L (35-105); Anion Gap 11.9 (5-19); Aspartate Amino Transferase 17 U/L (0-32); Blood Urea Nitrogen 19 mg/dL (8-23); Calcium 8.5 mg/dL (8.5-10.5); Carbon Dioxide 27 mmol/L (22-29); Chloride 104 mmol/L (98-107); Globulin 2.4 g/dL (1.3-4.6); Glomerular Filtration Rate 162.8 mL/min (90-130); Glucose 86 mg/dL (65-115); Osmolality Calculated 290 mOsm/kg (285-295); Potassium 3.9 mmol/L (3.5-5.1); Sodium 139 mmol/L (136-145); Total Bilirubin 0.2 mg/dL (0.15-1.2); Total Protein 6.2 g/dL (6.6-8.7)
--- NOTE | 2020-12-31 18:09 | ONC FU_ITS ---
Dr. Lainez Patient Follow-Up Note Patient: Alivia Minaya Unit #: [id number]: 1960 Dicatated By: Efren Lainez M.D.Date of Visit:Dec 31, 2020 Onc Med Follow-up/Prog Note Chief Complaint: Breast cancer. History of Present Illness: This is a 60 year-old woman with grade 2 infiltrating ductal carcinoma of the right breast, ER/OK positive and HER-2/cole negative. Her disease was locally advanced and metastatic at initial diagnosis in February 2019. She has a history of long-standing psychiatric disorder, previously diagnosed as schizophrenia. She was seen by Alina Holland on 01/15/2019 with complaints of shortness of breath and cough. Chest x-ray at that time showed diffuse bilateral nodular pulmonary opacities and infiltrates, some of which appeared cavitated. Further evaluation with chest CT on 01/26/2019 showed extensive, contiguous pleural-based and pulmonary metastatic disease bilaterally throughout the thorax. There was suspected extension into the superior surface of the liver. A large right rest mass measured 7.5 x 5.3 x 8.1 cm with likely invasion of the underlying chest wall. There was evidence of right axillary, mediastinal, and hilar lymphadenopathy and there was left celiac axis versus left adrenal abnormal lymph node. There appeared to be metastatic involvement in the right third rib. I had seen her initially on 02/01/2019. She had been aware of a mass in her right breast for least 2 or 3 years. In reviewing her record in [employer], she had been getting mammograms on a fairly regular basis until 2012, when her mammogram showed a nodular, asymmetric density in the medial posterior right breast for which additional evaluation with ultrasound was recommended. She failed to have anything further done. At that initial visit she had agreed to undergo biopsy. It was performed the following day, with pathology showing grade 2 infiltrating ductal carcinoma, ER/OK positive and HER-2/cole negative. On 02/26/2019 she began treatment with palbociclib 125 mg daily on a 21/28 day schedule together with letrozole 2.5 mg daily. During subsequent follow-up she did show gradual improvement clinically, and she appeared to tolerate the treatment very well. Restaging chest CT on 09/14/2019 showed decrease in the size of the large breast mass compared to the May 2019 study. Axillary lymph nodes had not changed in size. Thickening of the pleural margins and thickening of the pleura with nodular change at the lung bases also appeared stable. Atelectasis of the lingula and right middle lobe appeared unchanged. There were no distinct nodules noted. A middle mediastinal lymph node appeared unchanged. She continued treatment with letrozole in combination with palbociclib. She is seen for a followup visit. She has been feeling okay. She has pretty good energy and activity tolerance. ECOG score is 1. Her appetite is good. She has no fever, night sweats, or hot flashes. She has had no mouth sores. She does have some shortness of breath and she still uses oxygen as needed. She sometimes wakes up in the night coughing. She does not complain of chest pain. She has no GI or complaints. She occasionally has pain in her left leg when she is walking. She has no other joint or bone pain. She does not complain of headache or dizziness. She says her hands sometimes tingle. She has no other focal neurologic symptoms. Medications: Albuterol Sulfate 1 puff(s) (of 108 (90 base) mcg/act) Aerosol Powder, Breath Activated Inhalation daily PRN, Calcium 600+D3 Plus Minerals 2 Tablet (of 500-700 mg - Units) Tablet, chewable Oral daily, Ibrance 1 Capsule (of 125 mg) Oral daily, Ibuprofen 4 Tablet (of 200 mg) Oral PRN, Letrozole 1 Tablet (of 2.5 mg) Oral daily, Protonix 1 Tablet (of 40 mg) Tablet, enteric coated Oral daily PRN Allergies: Azithromycin Vital Signs: Performed on Dec 31, 2020 16:51 Height - 59.00 in Weight - 192.6 lbs (HIGH) BSA - 1.81 sq.m BMI - 38.90 (HIGH) Temperature - 98.1 F (LOW) Pulse - 76 /min Respiration - 18 /min BP - 147/80 mm(hg) (HIGH) O2 Sat - 96 % Pain - 0 Fatigue - 5 Physical Examination: Constitutional - She looks pretty good generally, Eyes - Sclerae nonicteric. Conjunctivae clear, ENMT - No lesions noted in the oral cavity, Hematologic/Lymphatic - No cervical or clavicular adenopathy, Respiratory - Lungs sound clear, Cardiovascular - Heart rhythm is regular. There is a II/ systolic murmur. There is no gallop or rub noted, Breasts - The right breast looks completely normal now, and I am not able to palpate a discrete mass. There is no axillary adenopathy noted, Abdomen - Soft. Liver and spleen are not enlarged. There is no abdominal mass or ascites noted and there is no inguinal adenopathy, Extremities - No edema, Neurologic - No focal neurologic deficits noted. Lab/Imaging: Test performed on Dec 31, 2020 13:49 Sodium 139 mmol/L Potassium 3.9 mmol/L Chloride 104 mmol/L CO2 27 mmol/L Anion Gap 11.9 BUN 19 mg/dL Creatinine 0.4 mg/dL Cr Clearance (Est) 206.27 mL/min eGFR 162.8 mL/min Glucose 86 mg/dL Osmolality - Calculated 290 mOsm/kg Calcium 8.5 mg/dL Protein, Total 6.2 g/dL Albumin 3.8 g/dL Globulin 2.4 g/dL Bilirubin, Total 0.2 mg/dL ALT (SGPT) 18 U/L AST (SGOT) 17 U/L Alkaline Phosphatase 102 IU/L WBC 5.1 10 3/uL RBC 3.20 10 6/uL HGB 11.2 g/dL HCT 34.4 % MCV 107.5 fL MCH 35.0 pg MCHC 32.6 g/dL RDW 16.0 % Platelet Count 255 10 3/cmm MPV 9.7 fL Neutrophils 2.73 10 3/uL Lymphocytes 1.5 10 3/uL Monocytes 0.8 10 3/uL Eosinophils 0.1 10 3/uL Basophils 0.1 10 3/uL Neutrophil % 53.3 % Lymphocyte % 28.8 % Monocyte % 14.7 % Eosinophil % 1.6 % Basophils % 1.4 % NRBC % 0 % Problem List: 1. Grade 2 infiltrating ductal carcinoma of the right breast, ER/OK positive and HER-2/cole negative. She had locally advanced and metastatic disease at initial diagnosis, including CT evidence of extensive pleural and pulmonary metastatic involvement. 2. GERD. 3. She has a history of a long-standing psychiatric disorder, which previously was diagnosed as schizophrenia. She is currently not on any medication for it. Problems Addressed with this Encounter and Plan: Patient with grade 2 infiltrating ductal carcinoma of the right breast, locally advanced and metastatic, ER/OK positive and HER-2/cole negative. In February 2019 she began treatment with palbociclib in combination with letrozole. She has had a very good response, both objectively and subjectively. During follow-up she has had ongoing evidence of response with continued improvement in the appearance of the right breast and gradual decline in her CA 27-29 level. She has had mild neutropenia and mild anemia with the palbociclib. She has had no other adverse effects with her treatment. Overall, she appears to be doing very well clinically. She continues treatment with palbociclib 125 mg daily on a 21/28-day schedule together with letrozole 2.5 mg daily. She will be scheduled for a follow-up visit in 3 months. Signed By: Efren Lainez M.D. <<Signature on File>>
[2021-01-01 07:27] LABS: CA 27.29 55 U/mL (<38)
== END 2020-12-31 13:30 | disposition home or self-care (01) ==
LOC: ONCMED 13:35
PROVIDERS: Visit Provider Internal Medicine Medical Oncology
DX: C50.811 Malignant neoplasm of overlapping sites of right female breast (principal); Z17.0 Estrogen receptor positive status [ER+]; C78.2 Secondary malignant neoplasm of pleura; C78.01 Secondary malignant neoplasm of right lung; C78.02 Secondary malignant neoplasm of left lung; K21.9 Gastro-esophageal reflux disease without esophagitis; F20.9 Schizophrenia, unspecified; Z79.811 Long term (current) use of aromatase inhibitors; Z79.899 Other long term (current) drug therapy
CPT/HCPCS: 36415; 80053; 85025; 86300; 99214

== ENCOUNTER → 2021-03-09 14:46 | Outpatient (BNVA) | payer MEDICARE, MEDICAID, SELFPAY | PROVIDERS: Visit Provider Nurse Practitioner | DX: F60.1 Schizoid personality disorder (principal); F41.1 Generalized anxiety disorder | CPT/HCPCS: 99214 ==

== ENCOUNTER 2021-04-06 15:02 | Outpatient (CLI) | payer MEDICARE, MEDICAID, SELFPAY ==
[2021-04-06 15:38] LABS: Basophils % 1.1 %; Eosinophils # 0.1 10^3/uL (0.0-0.8); Eosinophils % 2.6 %; Hematocrit 33.3 % (37.0-47.0); Hemoglobin 10.9 g/dL (11.5-15.3); Lymphocytes # 1.1 10^3/uL (0.8-4.8); Lymphocytes % 32.2 %; Mean Corpuscular HGB Conc 32.7 g/dL (30.0-36.0); Mean Corpuscular Volume 107.1 fl (81-99); Mean Platelet Volume 9.6 fL (7.4-10.4); Monocytes # 0.3 10^3/uL (0.2-0.9); Monocytes % 7.8 %; Neutrophils # 1.95 10^3/uL (1.8-7.7); Nucleated Red Blood Cells % 0 %; Platelet Count 341 10^3/cmm (130-400); Red Blood Count 3.11 10^6/uL (4.1-5.3); Red Cell Distribution Width 15.1 % (12.1-15.1); White Blood Count 3.5 10^3/uL (4.0-10.0)
[2021-04-06 16:24] LABS: Alanine Aminotransferase 13 U/L (0-33); Albumin Level 3.9 g/dL (3.5-5.2); Alkaline Phosphatase 89 IU/L (35-105); Anion Gap 11.8 (5-19); Aspartate Amino Transferase 14 U/L (0-32); Blood Urea Nitrogen 18 mg/dL (8-23); Calcium 8.7 mg/dL (8.5-10.5); Carbon Dioxide 25 mmol/L (22-29); Chloride 109 mmol/L (98-107); Globulin 2.7 g/dL (1.3-4.6); Glomerular Filtration Rate 162.8 mL/min (90-130); Glucose 94 mg/dL (65-115); Osmolality Calculated 296 mOsm/kg (285-295); Potassium 3.8 mmol/L (3.5-5.1); Sodium 142 mmol/L (136-145); Total Bilirubin 0.2 mg/dL (0.15-1.2); Total Protein 6.6 g/dL (6.6-8.7)
[2021-04-06 16:41] LABS: Slide Review Slide Review Perform
[2021-04-07 06:23] LABS: CA 27.29 40 U/mL (<38)
== END 2021-04-06 15:03 | disposition home or self-care (01) ==
LOC: LAB 15:09
PROVIDERS: Visit Provider Internal Medicine Medical Oncology
DX: C50.811 Malignant neoplasm of overlapping sites of right female breast (principal); Z17.0 Estrogen receptor positive status [ER+]; C78.2 Secondary malignant neoplasm of pleura; C78.01 Secondary malignant neoplasm of right lung; C78.02 Secondary malignant neoplasm of left lung; Z79.899 Other long term (current) drug therapy
CPT/HCPCS: 36415; 80053; 85025; 86300

== ENCOUNTER 2021-04-13 09:00 | Outpatient (CLI) | payer MEDICARE, MEDICAID, SELFPAY ==
--- NOTE | 2021-04-14 13:10 | ONC FU_ITS ---
Dr. Lainez Patient Follow-Up Note Patient: Alivia Minaya Unit #: [id number]: 1960 Dicatated By: Efren Lainez M.D.Date of Visit:Apr 13, 2021 Onc Med Follow-up/Prog Note Chief Complaint: Breast cancer. History of Present Illness: This is a 60 year-old woman with grade 2 infiltrating ductal carcinoma of the right breast, ER/AR positive and HER-2/cole negative. Her disease was locally advanced and metastatic at initial diagnosis in February 2019. She has a history of long-standing psychiatric disorder, previously diagnosed as schizophrenia. She was seen by Alina Holland on 01/15/2019 with complaints of shortness of breath and cough. Chest x-ray at that time showed diffuse bilateral nodular pulmonary opacities and infiltrates, some of which appeared cavitated. Further evaluation with chest CT on 01/26/2019 showed extensive, contiguous pleural-based and pulmonary metastatic disease bilaterally throughout the thorax. There was suspected extension into the superior surface of the liver. A large right rest mass measured 7.5 x 5.3 x 8.1 cm with likely invasion of the underlying chest wall. There was evidence of right axillary, mediastinal, and hilar lymphadenopathy and there was left celiac axis versus left adrenal abnormal lymph node. There appeared to be metastatic involvement in the right third rib. I had seen her initially on 02/01/2019. She had been aware of a mass in her right breast for least 2 or 3 years. In reviewing her record in [employer], she had been getting mammograms on a fairly regular basis until 2012, when her mammogram showed a nodular, asymmetric density in the medial posterior right breast for which additional evaluation with ultrasound was recommended. She failed to have anything further done. At that initial visit she had agreed to undergo biopsy. It was performed the following day, with pathology showing grade 2 infiltrating ductal carcinoma, ER/AR positive and HER-2/cole negative. On 02/26/2019 she began treatment with palbociclib 125 mg daily on a 21/ day schedule together with letrozole 2.5 mg daily. During subsequent follow-up she did show gradual improvement clinically, and she appeared to tolerate the treatment very well. Restaging chest CT on 09/14/2019 showed decrease in the size of the large breast mass compared to the May 2019 study. Axillary lymph nodes had not changed in size. Thickening of the pleural margins and thickening of the pleura with nodular change at the lung bases also appeared stable. Atelectasis of the lingula and right middle lobe appeared unchanged. There were no distinct nodules noted. A middle mediastinal lymph node appeared unchanged. She continued treatment with letrozole in combination with palbociclib. She is seen for a followup visit. She has been doing well. She has pretty good energy. ECOG score is 1. Her appetite is good. She has no fever, night sweats, or hot flashes. She has had no mouth sores. She sometimes has shortness of breath and she is still on oxygen, but overall her breathing is pretty good. She has some cough, but mainly just in the morning. She does not complain of chest pain. She has no GI or complaints. She has no significant joint or bone pain. She does not complain of headache or dizziness. She sometimes has numbness/tingling. Medications: Albuterol Sulfate 1 puff(s) (of 108 (90 base) mcg/act) Aerosol Powder, Breath Activated Inhalation daily PRN, Calcium 600+D3 Plus Minerals 2 Tablet (of 500-700 mg - Units) Tablet, chewable Oral daily, Ibrance 1 Capsule (of 125 mg) Oral daily, Ibuprofen 4 Tablet (of 200 mg) Oral PRN, Letrozole 1 Tablet (of 2.5 mg) Oral daily, Protonix 1 Tablet (of 40 mg) Tablet, enteric coated Oral daily PRN Allergies: Azithromycin Vital Signs: Performed on Apr 13, 2021 14:28 Height - 59.00 in Weight - 195 lbs (HIGH) BSA - 1.82 sq.m BMI - 39.39 (HIGH) Temperature - 97.5 F (LOW) Pulse - 80 /min Respiration - 18 /min BP - 145/83 mm(hg) (HIGH) O2 Sat - 99 % Pain - 0 Fatigue - 0 Physical Examination: Constitutional - She looks pretty good generally, Eyes - Sclerae nonicteric. Conjunctivae clear, ENMT - No lesions noted in the oral cavity, Hematologic/Lymphatic - No cervical or clavicular adenopathy, Respiratory - Lungs sound clear, Cardiovascular - Heart rhythm is regular. There is a II/ systolic murmur. There is no gallop or rub noted, Breasts - The right breast shows no mass. There is no axillary adenopathy noted, Abdomen - Soft. Liver and spleen are not enlarged. There is no abdominal mass or ascites noted and there is no inguinal adenopathy, Extremities - No edema, Neurologic - No focal neurologic deficits noted. Lab/Imaging: Test performed on Apr 06, 2021 15:20 Sodium 142 mmol/L Potassium 3.8 mmol/L Chloride 109 mmol/L CO2 25 mmol/L Anion Gap 11.8 BUN 18 mg/dL Creatinine 0.4 mg/dL Cr Clearance (Est) 206.27 mL/min eGFR 162.8 mL/min Glucose 94 mg/dL Osmolality - Calculated 296 mOsm/kg Calcium 8.7 mg/dL Protein, Total 6.6 g/dL Albumin 3.9 g/dL Globulin 2.7 g/dL Bilirubin, Total 0.2 mg/dL ALT (SGPT) 13 Units/L AST (SGOT) 14 Units/L Alkaline Phosphatase 89 International Units/L WBC 3.5 10^3/uL RBC 3.11 10^6/uL HGB 10.9 g/dL HCT 33.3 % MCV 107.1 fl MCH 35.0 pg MCHC 32.7 g/dL RDW 15.1 % Platelet Count 341 10^3/uL MPV 9.6 fl Neutrophil % 56.0 % Lymphocyte % 32.2 % Monocyte % 7.8 % Eosinophil % 2.6 % Basophils % 1.1 % NRBC 0.0 /100 WBC NRBC % 0 % CA 27.29 40 Units/mL Problem List: 1. Grade 2 infiltrating ductal carcinoma of the right breast, ER/AR positive and HER-2/cole negative. She had locally advanced and metastatic disease at initial diagnosis, including CT evidence of extensive pleural and pulmonary metastatic involvement. 2. GERD. 3. She has a history of a long-standing psychiatric disorder, which previously was diagnosed as schizophrenia. She is currently not on any medication for it. Problems Addressed with this Encounter and Plan: Patient with grade 2 infiltrating ductal carcinoma of the right breast, locally advanced and metastatic, ER/AR positive and HER-2/cole negative. In February 2019 she began treatment with palbociclib in combination with letrozole. She had a very good response, both objectively and subjectively. During follow-up she has had ongoing evidence of response with continued improvement in the appearance of the right breast and with continued gradual decline in her CA 27-29 level. She has had mild neutropenia and mild anemia with the palbociclib. She has had no other adverse effects with her treatment. Overall, she is doing very well. She continues treatment with palbociclib 125 mg daily on a 21/28-day schedule together with letrozole 2.5 mg daily. She will be scheduled for a follow-up visit in 3 months. Signed By: Efren Lainez M.D. <<Signature on File>>
== END 2021-04-13 09:01 | disposition home or self-care (01) ==
LOC: ONCMED 04-14 09:43
PROVIDERS: Visit Provider Internal Medicine Medical Oncology
DX: C50.811 Malignant neoplasm of overlapping sites of right female breast (principal); Z17.0 Estrogen receptor positive status [ER+]; C78.01 Secondary malignant neoplasm of right lung; C78.02 Secondary malignant neoplasm of left lung; K21.9 Gastro-esophageal reflux disease without esophagitis; F20.9 Schizophrenia, unspecified; Z79.811 Long term (current) use of aromatase inhibitors
CPT/HCPCS: 99214

== ENCOUNTER 2021-07-13 13:10 | Outpatient (CLI) | payer MEDICARE, MEDICAID, SELFPAY ==
[2021-07-13 14:55] LABS: Basophils # 0.1 10^3/uL (0.0-0.1); Basophils % 1.2 %; Eosinophils % 0.8 %; Hematocrit 33.6 % (37.0-47.0); Hemoglobin 10.9 g/dL (11.5-15.3); Lymphocytes # 1.3 10^3/uL (0.8-4.8); Lymphocytes % 25.6 %; Mean Corpuscular HGB Conc 32.4 g/dL (30.0-36.0); Mean Corpuscular Hemoglobin 34.2 pg (28.0-34.0); Mean Corpuscular Volume 105.3 fl (81-99); Mean Platelet Volume 10.2 fL (7.4-10.4); Monocytes # 0.7 10^3/uL (0.2-0.9); Monocytes % 14.3 %; Neutrophils # 2.82 10^3/uL (1.8-7.7); Neutrophils % 57.9 %; Nucleated Red Blood Cells % 0 %; Platelet Count 234 10^3/cmm (130-400); Red Blood Count 3.19 10^6/uL (4.1-5.3); Red Cell Distribution Width 16.7 % (12.1-15.1); White Blood Count 4.9 10^3/uL (4.0-10.0)
[2021-07-13 15:29] LABS: Alanine Aminotransferase 12 U/L (0-33); Alkaline Phosphatase 105 IU/L (35-105); Aspartate Amino Transferase 16 U/L (0-32); Blood Urea Nitrogen 23 mg/dL (8-23); CA 15-3 33.9 U/mL (0-25); Calcium 9.5 mg/dL (8.5-10.5); Carbon Dioxide 25 mmol/L (22-29); Chloride 105 mmol/L (98-107); Globulin 2.8 g/dL (1.3-4.6); Glomerular Filtration Rate 226.2 mL/min (90-130); Glucose 98 mg/dL (65-115); Osmolality Calculated 296 mOsm/kg (285-295); Sodium 141 mmol/L (136-145); Total Bilirubin 0.2 mg/dL (0.15-1.2); Total Protein 6.8 g/dL (6.6-8.7)
[2021-07-13 15:34] LABS: Anion Gap 15.6 (5-19); Potassium 4.6 mmol/L (3.5-5.1)
== END 2021-07-13 13:11 | disposition home or self-care (01) ==
LOC: ONCMED 13:14
PROVIDERS: PCP Family Medicine; Visit Provider Internal Medicine Medical Oncology
DX: C50.911 Malignant neoplasm of unspecified site of right female breast (principal); Z17.0 Estrogen receptor positive status [ER+]; C78.2 Secondary malignant neoplasm of pleura; C78.00 Secondary malignant neoplasm of unspecified lung
CPT/HCPCS: 36415; 80053; 85025; 86300

== ENCOUNTER 2021-07-15 06:37 | Outpatient (CLI) | payer MEDICARE, MEDICAID, SELFPAY ==
--- NOTE | 2021-07-17 16:30 | ONC FU_ITS ---
Dr. Lainez Patient Follow-Up Note Patient: Alivia Minaya Unit #: [id number]: 1960 Dicatated By: Efren Lainez M.D.Date of Visit:Jul 15, 2021 Onc Med Follow-up/Prog Note Chief Complaint: Breast cancer. History of Present Illness: This is a 61 year-old woman with grade 2 infiltrating ductal carcinoma of the right breast, ER/SD positive and HER-2/cole negative. Her disease was locally advanced and metastatic at initial diagnosis in February 2019. She has a history of long-standing psychiatric disorder, previously diagnosed as schizophrenia. She was seen by Alina Holland on 01/15/2019 with complaints of shortness of breath and cough. Chest x-ray at that time showed diffuse bilateral nodular pulmonary opacities and infiltrates, some of which appeared cavitated. Further evaluation with chest CT on 01/26/2019 showed extensive, contiguous pleural-based and pulmonary metastatic disease bilaterally throughout the thorax. There was suspected extension into the superior surface of the liver. A large right rest mass measured 7.5 x 5.3 x 8.1 cm with likely invasion of the underlying chest wall. There was evidence of right axillary, mediastinal, and hilar lymphadenopathy and there was left celiac axis versus left adrenal abnormal lymph node. There appeared to be metastatic involvement in the right third rib. I had seen her initially on 02/01/2019. She had been aware of a mass in her right breast for least 2 or 3 years. In reviewing her record in [employer], she had been getting mammograms on a fairly regular basis until 2012, when her mammogram showed a nodular, asymmetric density in the medial posterior right breast for which additional evaluation with ultrasound was recommended. She failed to have anything further done. At that initial visit she had agreed to undergo biopsy. It was performed the following day, with pathology showing grade 2 infiltrating ductal carcinoma, ER/SD positive and HER-2/cole negative. On 02/26/2019 she began treatment with palbociclib 125 mg daily on a 21/28 day schedule together with letrozole 2.5 mg daily. During subsequent follow-up she did show gradual improvement clinically, and she appeared to tolerate the treatment very well. Restaging chest CT on 09/14/2019 showed decrease in the size of the large breast mass compared to the May 2019 study. Axillary lymph nodes had not changed in size. Thickening of the pleural margins and thickening of the pleura with nodular change at the lung bases also appeared stable. Atelectasis of the lingula and right middle lobe appeared unchanged. There were no distinct nodules noted. A middle mediastinal lymph node appeared unchanged. She continued treatment with letrozole in combination with palbociclib, and during her further follow-up there was continued clinical improvement and continued decline in her CA 27-29 level. As of 04/06/2021 it had decreased to 40 U/mL compared to a baseline level of 5061 U/mL.. She is seen for a followup visit. She has been feeling good generally. She complains that her legs have been getting stiff when she is sitting, but that does seem to resolve with activity. She has not been having any significant joint or bone pain and she has no other apparent side effects with the letrozole/palbociclib. She has somewhat limited activity, but she is active and she is able to do light work. ECOG score is 1. She has good appetite. She has had a significant weight gain, which is now close to 70 pounds since her initial visit in January 2019. She is up 17 pounds compared to a year ago. She does not have fever, night sweats, or hot flashes. She still has some shortness of breath, and she uses oxygen as needed. She also has some cough, but it is productive of clear sputum. She does not complain of chest pain. She has no GI/ complaints other than occasional acid reflux. She does not complain of headache or dizziness. She says her hands sometimes tingle. She has no other focal neurologic symptoms. Medications: Albuterol Sulfate 1 puff(s) (of 108 (90 base) mcg/act) Aerosol Powder, Breath Activated Inhalation daily PRN, Calcium 600+D3 Plus Minerals 2 Tablet (of 500-700 mg - Units) Tablet, chewable Oral daily, Ibrance 1 Capsule (of 125 mg) Oral daily, Letrozole 1 Tablet (of 2.5 mg) Oral daily, Naproxen 250 mg (of 250 mg) Tablet Oral daily PRN, Protonix 1 Tablet (of 40 mg) Tablet, enteric coated Oral daily PRN Allergies: Azithromycin Vital Signs: Performed on Jul 15, 2021 15:21 Height - 59.00 in Weight - 198.6 lbs (HIGH) BSA - 1.84 sq.m BMI - 40.11 (HIGH) Temperature - 98 F (LOW) Pulse - 81 /min Respiration - 20 /min BP - 156/95 mm(hg) (HIGH) O2 Sat - 98 % Pain - 0 Fatigue - 0 Physical Examination: Constitutional - She looks pretty good generally, Eyes - Sclerae nonicteric. Conjunctivae clear, ENMT - No lesions noted in the oral cavity, Hematologic/Lymphatic - No cervical or clavicular adenopathy, Respiratory - Lungs sound clear, Cardiovascular - Heart rhythm is regular. There is a II/ systolic murmur. There is no gallop or rub noted, Breasts - The right breast shows slight residual deformity at the nipple. There is no mass palpable. There is no axillary adenopathy noted, Abdomen - Soft. Liver and spleen are not enlarged. There is no abdominal mass or ascites noted and there is no inguinal adenopathy, Extremities - No edema, Neurologic - No focal neurologic deficits noted. Lab/Imaging: CBC shows hemoglobin 10.9 g, white blood cell count 4900, and platelet count 234,000. Comprehensive metabolic profile shows stable renal function with BUN 23 and creatinine 0.3 mg/dL. Bilirubin and liver enzymes are normal. Her CA 15-3 level is 33.9 U/mL. Problem List: 1. Grade 2 infiltrating ductal carcinoma of the right breast, ER/SD positive and HER-2/cole negative. She had locally advanced and metastatic disease at initial diagnosis, including CT evidence of extensive pleural and pulmonary metastatic involvement. 2. GERD. 3. She has a history of a long-standing psychiatric disorder, which previously was diagnosed as schizophrenia. She is currently not on any medication for it. Problems Addressed with this Encounter and Plan: Patient with grade 2 infiltrating ductal carcinoma of the right breast, locally advanced and metastatic, ER/SD positive and HER-2/cole negative. In February 2019 she began treatment with palbociclib in combination with letrozole. She had a very good response, both objectively and subjectively. During follow-up she has had ongoing evidence of response with continued improvement in the appearance of the right breast and with continued gradual decline in her CA 27-29 level. She has had mild neutropenia and mild anemia with the palbociclib. She has had no other adverse effects with her treatment. Overall, she continues to do very well clinically, though her weight gain may eventually become problematic. She continues treatment with palbociclib 125 mg daily on a 21/28-day schedule together with letrozole 2.5 mg daily. She will be scheduled for a follow-up visit in 3 months. Signed By: Efren Lainez M.D. <<Signature on File>>
== END 2021-07-15 06:38 | disposition home or self-care (01) ==
LOC: ONCMED 06:37
PROVIDERS: PCP Family Medicine; Visit Provider Internal Medicine Medical Oncology
DX: C50.911 Malignant neoplasm of unspecified site of right female breast (principal); C78.00 Secondary malignant neoplasm of unspecified lung; Z17.0 Estrogen receptor positive status [ER+]; K21.9 Gastro-esophageal reflux disease without esophagitis; F20.9 Schizophrenia, unspecified; Z79.811 Long term (current) use of aromatase inhibitors; Z79.899 Other long term (current) drug therapy
CPT/HCPCS: 99214

== ENCOUNTER → 2021-08-31 14:12 | Outpatient (BNVA) | payer MEDICARE, MEDICAID, SELFPAY | PROVIDERS: PCP Family Medicine; Visit Provider Nurse Practitioner | DX: F41.1 Generalized anxiety disorder (principal); F60.1 Schizoid personality disorder | CPT/HCPCS: 99214 ==

== ENCOUNTER 2021-10-12 11:08 | Outpatient (CLI) | payer MEDICARE, MEDICAID, SELFPAY ==
[2021-10-12 11:35] LABS: Basophils # 0.1 10^3/uL (0.0-0.1); Basophils % 1.7 %; Eosinophils # 0.1 10^3/uL (0.0-0.8); Eosinophils % 2.2 %; Hematocrit 35.6 % (37.0-47.0); Hemoglobin 11.5 g/dL (11.5-15.3); Lymphocytes # 1.1 10^3/uL (0.8-4.8); Lymphocytes % 19.9 %; Mean Corpuscular HGB Conc 32.3 g/dL (30.0-36.0); Mean Corpuscular Hemoglobin 34.1 pg (28.0-34.0); Mean Corpuscular Volume 105.6 fl (81-99); Mean Platelet Volume 9.8 fL (7.4-10.4); Monocytes # 0.3 10^3/uL (0.2-0.9); Monocytes % 5.8 %; Neutrophils # 3.77 10^3/uL (1.8-7.7); Neutrophils % 70.2 %; Nucleated Red Blood Cells % 0 %; Platelet Count 354 10^3/cmm (130-400); Red Blood Count 3.37 10^6/uL (4.1-5.3); White Blood Count 5.4 10^3/uL (4.0-10.0)
[2021-10-12 11:56] LABS: Slide Review Slide Review Perform
[2021-10-12 12:12] LABS: Alanine Aminotransferase 15 U/L (0-33); Alkaline Phosphatase 103 IU/L (35-105); Aspartate Amino Transferase 17 U/L (0-32); Blood Urea Nitrogen 14 mg/dL (8-23); CA 15-3 30.5 U/mL (0-25); Calcium 8.6 mg/dL (8.5-10.5); Carbon Dioxide 26 mmol/L (22-29); Chloride 104 mmol/L (98-107); Globulin 3.2 g/dL (1.3-4.6); Glomerular Filtration Rate 101.6 mL/min (90-130); Glucose 126 mg/dL (65-115); Osmolality Calculated 294 mOsm/kg (285-295); Sodium 141 mmol/L (136-145); Total Bilirubin 0.4 mg/dL (0.15-1.2); Total Protein 7.2 g/dL (6.6-8.7)
[2021-10-12 12:13] LABS: Anion Gap 15.2 (5-19); Potassium 4.2 mmol/L (3.5-5.1)
--- NOTE | 2021-10-13 21:17 | ONC FU_ITS ---
Brittaney Dailey Progress Note Patient: Alivia Minaya Unit #: [id number]: 1960 Dicatated By: Brittaney Dailey N.P.Date of Visit:Oct 12, 2021 Onc MED Follow-up/Prog Note Chief Complaint: Breast cancer. History of Present Illness: This is a 61 year-old woman with grade 2 infiltrating ductal carcinoma of the right breast, ER/WA positive and HER-2/cole negative. Her disease was locally advanced and metastatic at initial diagnosis in February 2019. She has a history of long-standing psychiatric disorder, previously diagnosed as schizophrenia. She was seen by Alina Holland on 01/15/2019 with complaints of shortness of breath and cough. Chest x-ray at that time showed diffuse bilateral nodular pulmonary opacities and infiltrates, some of which appeared cavitated. Further evaluation with chest CT on 01/26/2019 showed extensive, contiguous pleural-based and pulmonary metastatic disease bilaterally throughout the thorax. There was suspected extension into the superior surface of the liver. A large right rest mass measured 7.5 x 5.3 x 8.1 cm with likely invasion of the underlying chest wall. There was evidence of right axillary, mediastinal, and hilar lymphadenopathy and there was left celiac axis versus left adrenal abnormal lymph node. There appeared to be metastatic involvement in the right third rib. I had seen her initially on 02/01/2019. She had been aware of a mass in her right breast for least 2 or 3 years. In reviewing her record in [facility], she had been getting mammograms on a fairly regular basis until 2012, when her mammogram showed a nodular, asymmetric density in the medial posterior right breast for which additional evaluation with ultrasound was recommended. She failed to have anything further done. At that initial visit she had agreed to undergo biopsy. It was performed the following day, with pathology showing grade 2 infiltrating ductal carcinoma, ER/WA positive and HER-2/cole negative. On 02/26/2019 she began treatment with palbociclib 125 mg daily on a 21/28 day schedule together with letrozole 2.5 mg daily. During subsequent follow-up she did show gradual improvement clinically, and she appeared to tolerate the treatment very well. Restaging chest CT on 09/14/2019 showed decrease in the size of the large breast mass compared to the May 2019 study. Axillary lymph nodes had not changed in size. Thickening of the pleural margins and thickening of the pleura with nodular change at the lung bases also appeared stable. Atelectasis of the lingula and right middle lobe appeared unchanged. There were no distinct nodules noted. A middle mediastinal lymph node appeared unchanged. She continued treatment with letrozole in combination with palbociclib, and during her further follow-up there was continued clinical improvement and continued decline in her CA 27-29 level. As of 04/06/2021 it had decreased to 40 U/mL compared to a baseline level of 5061 U/mL.. Patient presents today for follow-up visit. She states she is becoming more short of breath especially with activity. She is requiring 2 to 3 L of oxygen per nasal cannula daily. She has increasing cough. She has no chest pain. She states her appetite has been good. She denies fever, chills, night sweats. She denies any GI or problems. She denies joint or bone pain. She sometimes has some numbness or tingling in her fingertips. She is currently on Ibrance and letrozole and has been tolerating meals well. Review Of Symptoms: See above Past Medical History: Gastroesophageal reflux disease History of long-standing psychiatric disorder Past Surgical History: [place] teeth extraction Covid booster in 2020 Covid vaccine #1 in 2020 Covid vaccine #2 in 2020 Influeza vaccine in 2019 Pneumonia vaccine in 2019 Allergies: Azithromycin Medications: Albuterol Sulfate 1 puff(s) (of 108 (90 base) mcg/act) Aerosol Powder, Breath Activated Inhalation daily PRN Calcium 600+D3 Plus Minerals 2 Tablet (of 500-700 mg - Units) Tablet, chewable Oral daily Ibrance 1 Capsule (of 125 mg) Oral daily Letrozole 1 Tablet (of 2.5 mg) Oral daily Naproxen 250 mg (of 250 mg) Tablet Oral daily PRN Protonix 1 Tablet (of 40 mg) Tablet, enteric coated Oral daily PRN Family History: Ms. Minaya's mother is alive. Ms. Minaya's father at age 78: congestive heart failure, and type II diabetes. Ms. Minaya has 1 sister who is alive. Father had heart disease, COPD, and diabetes. He at age 78. Mother is still living at age 81 and is apparently in good health. One sister is in good health. Social History: Ms. 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 Ms. Minaya has never smoked. She has no history of drinking. She is a nonsmoker. She does not drink alcohol. Physical Examination: Performed on Oct 12, 2021 14:41: Height - 59.00 in, Weight - 198.6 lbs, BSA - 1.84 sq.m, BMI - 40.11 (HIGH), Temperature - 97.6 F (LOW), Pulse - 94 /min, Respiration - 20 /min, BP - 131/83 mm(hg), O2 Sat - 94 % (LOW), Pain - 0, and Fatigue - 7. Performance Status: 1 - No physically strenuous activity, but ambulatory and able to carry out light or sedentary work (e.g. office work, light house work). (ECOG) Constitutional Alert, cooperative, oriented. Mood and affect appropriate. Appears close to chronological age. Well nourished. Well developed. Respiratory Lungs are clear to auscultation without rhonchi or wheezing. Cardiovascular Regular rate and rhythm of heart without murmurs, gallops or rubs. Abdomen Non-tender, non-distended, no masses, ascites or hepatosplenomegaly. Good bowel sounds. No guarding or rebound tenderness. Extremities No edema Musculoskeletal No tenderness or swelling, normal range of motion without obvious weakness. Psychiatric Alert and oriented times three. Coherent speech. Verbalizes understanding of our discussions today. Laboratory: Test performed on Oct 12, 2021 11:20 Sodium 141 mmol/L Potassium 4.2 mmol/L Chloride 104 mmol/L CO2 26 mmol/L Anion Gap 15.2 BUN 14 mg/dL Creatinine 0.6 mg/dL Cr Clearance (Est) 140.0300 mL/min eGFR 101.6 mL/min Glucose 126 mg/dL Osmolality - Calculated 294 mOsm/kg Calcium 8.6 mg/dL Protein, Total 7.2 g/dL Albumin 4.0 g/dL Globulin 3.2 g/dL Bilirubin, Total 0.4 mg/dL ALT (SGPT) 15 U/L AST (SGOT) 17 U/L Alkaline Phosphatase 103 IU/L WBC 5.4 10 3/uL RBC 3.37 10 6/uL HGB 11.5 g/dL HCT 35.6 % MCV 105.6 fl MCH 34.1 pg MCHC 32.3 g/dL RDW 17.0 % Platelet Count 354 10 3/cmm MPV 9.8 fL Neutrophils 3.77 10 3/uL Lymphocytes 1.1 10 3/uL Monocytes 0.3 10 3/uL Eosinophils 0.1 10 3/uL Basophils 0.1 10 3/uL Neutrophil % 70.2 % Lymphocyte % 19.9 % Monocyte % 5.8 % Eosinophil % 2.2 % Basophils % 1.7 % NRBC % 0 % CBC Slide Review Slide Review Perform SLIDE REVIEW AGREES WITH AUTOMATED RESULTS CA 15-3 30.5 U/mL Impression: 1. Grade 2 infiltrating ductal carcinoma of the right breast, ER/WA positive and HER-2/cole negative. She had locally advanced and metastatic disease at initial diagnosis, including CT evidence of extensive pleural and pulmonary metastatic involvement. 2. GERD. 3. She has a history of a long-standing psychiatric disorder, which previously was diagnosed as schizophrenia. She is currently not on any medication for it. Plan: Patient with grade 2 infiltrating ductal carcinoma of the right breast, locally advanced and metastatic, ER/WA positive and HER-2/cole negative. In February 2019 she began treatment with palbociclib in combination with letrozole. She had a very good response, both objectively and subjectively. She continues treatment with palbociclib 125 mg daily on a 21/28-day schedule together with letrozole 2.5 mg daily. Her CA 15-3 is at 30.5 down from 33.9 in June 2021. Due to her increasing shortness of breath and cough, we will obtain a CT scan of the chest, abdomen, pelvis to further evaluate. She will follow-up in 2 weeks with results. Signed By: Brittaney Dailey N.P. <<Signature on File>>
== END 2021-10-12 11:09 | disposition home or self-care (01) ==
PROVIDERS: PCP Family Medicine; Visit Provider Nurse Practitioner Family
DX: C50.911 Malignant neoplasm of unspecified site of right female breast (principal); Z17.0 Estrogen receptor positive status [ER+]; C78.2 Secondary malignant neoplasm of pleura; C78.00 Secondary malignant neoplasm of unspecified lung; Z79.811 Long term (current) use of aromatase inhibitors; R06.02 Shortness of breath; R05.9 Cough, unspecified
CPT/HCPCS: 36415; 80053; 85025; 86300; 99214

== ENCOUNTER 2021-10-20 09:08 | Outpatient (CLI) | payer MEDICARE, MEDICAID, SELFPAY ==
--- NOTE | 2021-10-20 09:19 | CT_ITS ---
WS: [id number] CT CHEST, ABDOMEN, AND PELVIS TECHNIQUE: Contrast-enhanced CT of the chest, abdomen, and pelvis with coronal and sagittal reformatt ed images. CLINICAL INFORMATION: METASTATIC BREAST CANCER/SHORTNESS OF BREATH COMPARISON: CT October 08, 2020 DLP: 1600.[address] scans at [facility] use at least one of these dose optimization techniques: automated e xposure control; mA and/or kV adjustment per patient size (includes targeted exams where dose is matc hed to clinical indication); or iterative reconstruction. CT CHEST: Normal caliber thoracic aorta. Filling defects in the distal main pulmonary arteries extending into the proximal subsegmental pulmon rashawn arteries compatible with pulmonary embolus. Filling defects visualized subsegmental pulmonary art eries in the LEFT upper and LEFT lower lobes. Study is not optimized for pulmonary embolus. Recommend follow-up with CTA chest PE protocol. Moderate chronic emphysematous changes. Subsegmental atelectasis in the lingula and LEFT lower lobe. Scattered calcified granulomas. Subsegmental atelectasis in the RIGHT middle lobe. No focal pneumonia or pleural fluid. Tiny noncalcified nodule RIGHT upper lobe measuring 2 mm appears stable. Persisten t mass medial RIGHT breast measures 4.2 x 1.7 cm unchanged. No axillary lymphadenopathy. CT ABDOMEN AND PELVIS: Mild diffuse fatty infiltration liver. Normal portal vein and splenic vein. No enhancing hepatic lesi ons. Normal pancreatic parenchymal enhancement. Normal spleen. Moderate esophageal hiatal hernia. Adr enal glands are normal. Tiny bilateral renal cysts. No hydronephrosis. Normal gallbladder. No upper a bdominal or periaortic lymphadenopathy. No pelvic or inguinal lymphadenopathy. Sigmoid diverticulosis . No evidence of acute diverticulitis. No evidence of high-grade small or large bowel obstruction. No evidence of metastatic disease in the abdomen or pelvis. Normal caliber abdominal aorta. Celiac and SMA are patent. Small fat-containing umbilical hernia. CT/CT chest abd pel w con* IMPRESSION: 1. Pulmonary emboli are visualized in the distal main pulmonary arteries bilat erally extending into the segmental and subsegmental pulmonary arteries. Study is not optimized for pulmonary embolus. Recommend follow-up with CTA chest PE p rotocol. 2. No evidence of RIGHT heart strain. 3. No focal pneumonia or pleural fluid. 4. Moderate esophageal hiatal hernia. 5. Tiny noncalcified nodule RIGHT upper lobe appears stable measuring 2 mm. 6. Persistent mass medial RIGHT breast measures 4.2 x 1.7 cm unchanged 7. No evidence of metastatic disease in the abdomen or pelvis. Notified Brittaney Dailey NP at 10/20/2021 12:50 PM.
[2021-10-20] MEDS: iohexol 300 mg/mL 50 mL Btl PO (09:35)
[2021-10-20] MEDS: iohexol 350 mg/mL 100 mL Btl IV (11:25)
== END 2021-10-20 09:09 | disposition home or self-care (01) ==
PROVIDERS: PCP Family Medicine; Visit Provider Nurse Practitioner Family
DX: R06.02 Shortness of breath (principal); C79.81 Secondary malignant neoplasm of breast
CPT/HCPCS: 71260; 74177

== ENCOUNTER 2021-10-26 12:00 | Outpatient (CLI) | payer MEDICARE, MEDICAID, SELFPAY ==
--- NOTE | 2021-10-26 12:00 | CT_ITS ---
WS: [id number] CTA OF THE CHEST WITH PULMONARY EMBOLISM PROTOCOL TECHNIQUE: High-resolution contrast enhanced CTA of the chest with coronal and sagittal reformatted i mages with pulmonary embolism protocol. MIP images are also reviewed. CLINICAL INFORMATION: PE reevaluation COMPARISON: CT October 20, 2021 DLP: 531.[address] scans at [facility] use at least one of these dose optimization techniques: automated e xposure control; mA and/or kV adjustment per patient size (includes targeted exams where dose is matc hed to clinical indication); or iterative reconstruction. FINDINGS: Proximal main pulmonary arteries are normal. Again seen are filling defects in the bilateral segment al and subsegmental pulmonary arteries bilaterally worse in the RIGHT greater than LEFT lower lobes c onsistent with pulmonary embolus. This is similar in appearance to the prior examination. Normal caliber thoracic aorta. No mediastinal or hilar lymphadenopathy. No axillary lymphadenopathy. No other significant changes compared to previous. Stable RIGHT breast soft tissue mass measuring 4.2 x 1.7 CM. Moderate esophageal hiatal hernia. Stabl e tiny 2 mm nodule RIGHT upper lobe. Calcified granulomatous disease. Adrenal glands are normal. Mode rate thoracic kyphosis. CT/CT angio chest PE protcl [id number] IMPRESSION: 1. Bilateral pulmonary emboli in segmental and subsegmental pulmonary arteries worse in the RIGHT lower lobe. This is confirmed on this PE study and similar to the prior CT chest abdomen pelvis October 20, 2021 2. No evidence of RIGHT heart strain. 3. Stable RIGHT breast mass medially measuring 4.2 x 1.7 CM. 4. Stable subsegmental atelectasis RIGHT lower lobe anteriorly is unchanged. 5. Moderate esophageal hiatal hernia. 6. No other significant changes compared to previous. Message left for Lois Spencer NP at 10/26/2021 1:29 PM.
== END 2021-10-26 12:01 | disposition home or self-care (01) ==
PROVIDERS: PCP Family Medicine; Visit Provider Nurse Practitioner Family
DX: I26.99 Other pulmonary embolism without acute cor pulmonale (principal); K44.9 Diaphragmatic hernia without obstruction or gangrene; J98.11 Atelectasis
CPT/HCPCS: 71275; Q9967

== ENCOUNTER 2021-10-28 13:29 | Oncology outpatient (recurring) (ONCR) | payer MEDICARE, MEDICAID, SELFPAY | END 2021-11-17 23:59 | disposition home or self-care (01) | LOC: ONCMED 13:29 | PROVIDERS: PCP Family Medicine; Visit Provider Nurse Practitioner Family | DX: C50.811 Malignant neoplasm of overlapping sites of right female breast (principal); Z17.0 Estrogen receptor positive status [ER+]; I26.99 Other pulmonary embolism without acute cor pulmonale; Z79.01 Long term (current) use of anticoagulants; Z79.818 Long term (current) use of other agents affecting estrogen receptors and estrogen levels; Z79.899 Other long term (current) drug therapy | CPT/HCPCS: 99214; 99999 ==

== ENCOUNTER 2021-12-04 08:59 | Outpatient (CLI) | payer MEDICARE, MEDICAID, SELFPAY ==
[2021-12-04] MEDS: iohexol 350 mg/mL 100 mL Btl IV (09:40)
--- NOTE | 2021-12-04 10:15 | CT_ITS ---
WS: [id number] CT CHEST ANGIOGRAPHY WITH REFORMATS HISTORY: followup for pulmonary emboli TECHNIQUE: Contiguous axial images are obtained through the chest during arterial injection of intrav enous contrast. Images are reconstructed to evaluate the pulmonary arteries. MIP imaging also reviewe d. All CT scans at [facility] use at least one of these dose optimization techniques: automat ed exposure control; mA and/or kV adjustment per patient size (includes targeted exams where dose is matched to clinical indication); or iterative reconstruction. CONTRAST: Omnipaque 350; 95 mL IV. DLP: 998.91 mGy-cm. COMPARISON: 10/26/2021 Adequate opacification of the pulmonary arteries. Previously described pulmonary emboli in the lower lobes are no longer present. Lung volumes are slightly decreased. Bilateral areas of subsegmental ate lectasis. There are a few scattered granulomata. The soft tissue nodule along the anterior mediastinu m in the pericardial fat was also present on 10/08/2020 without increase in size. Costophrenic angles are blunted bilaterally due to pleural thickening. Mild enlargement the heart chambers. No RIGHT heart strain. Mildly prominent mediastinal and hilar ly mph nodes are stable. No increasing size of the lymph nodes. Long-term stability of the soft tissue a long the medial inferior RIGHT breast adjacent to the chest wall. Large hiatal hernia. No adrenal mass. The visualized liver is negative. No change in appearance of th e osseous structures. No osteoblastic or osteolytic lytic bone disease. CT/CT angio chest PE protcl [id number] IMPRESSION: 1. No pulmonary embolism. Resolved pulmonary artery filling defects since 2021. 2. Stable pleural thickening throughout both lungs with no mediastinal or huong r adenopathy. 3. No pneumonia. 4. Mild cardiomegaly with no RIGHT heart strain.
== END 2021-12-04 09:00 | disposition home or self-care (01) ==
LOC: RAD 09:06
PROVIDERS: PCP Family Medicine; Visit Provider Internal Medicine Medical Oncology
DX: I26.99 Other pulmonary embolism without acute cor pulmonale (principal); I51.7 Cardiomegaly
CPT/HCPCS: 71275

== ENCOUNTER 2021-12-04 09:00 | Oncology outpatient (recurring) (ONCR) | payer MEDICARE, MEDICAID, SELFPAY | END 2021-12-17 23:59 | disposition home or self-care (01) | LOC: RAD 12-05 00:01 | PROVIDERS: PCP Family Medicine; Visit Provider Nurse Practitioner Family | DX: Z53.9 Procedure and treatment not carried out, unspecified reason (principal) | CPT/HCPCS: 80053; 85025; 99214 ==

== ENCOUNTER 2021-12-15 20:49 | Emergency (ER) | payer MEDICARE, MEDICAID, SELFPAY ==
[2021-12-15 21:21] VITALS: BP 160/91; PULSE 96; RESP 17; TEMP 36.9; O2SAT 97; BMI 39.6
--- NOTE | 2021-12-15 21:44 | USR_ITS ---
PROCEDURE INFORMATION: Exam: US Duplex Left Lower Extremity Veins, Limited Exam date and time: 12/15/2021 10:31 PM Age: 61 years old Clinical indication: Other: Pulmonary emboli; Patient HX: Venous duplex imaging was performed in only the left lower extremity. The following venous structures were evaluated: Common femoral vein, profunda vein, proximal portion of the greater saphenous vein, superficial femoral vein, and the popliteal vein. In addition, the posterior tibial and peroneal veins were evaluated. On the left side, the common femoral, superficial femoral, profunda femoral, popliteal, posterior tibial, greater saphenous veins, and the peroneal veins were identified and interrogated in the standard fashion. These veins were found to be easily compressible with spontaneous blood flow and good augmentation. No evidence of thrombus noted. TECHNIQUE: Imaging protocol: Real-time Duplex ultrasound of the Left Lower Extremity with 2-D lozoay scale, color Doppler flow and spectral waveform analysis with image documentation. Limited exam focused on the left lower extremity veins. COMPARISON: CT chest abd pel w con* 10/20/2021 11:21 AM FINDINGS: Left deep veins: Unremarkable. The common femoral, femoral, proximal profunda femoral and popliteal veins are patent without thrombus. Normal Doppler waveforms. Normal compressibility and/or augmentation response. Left superficial veins: Unremarkable. Saphenofemoral junction is patent without thrombus. Soft tissues: Unremarkable. US/[place] [id number] IMPRESSION: No evidence of deep vein thrombosis.
[2021-12-15] MEDS: HYDROcodone-acetaminophen 5-325 mg Tablet 1 TAB PO (22:00)
--- NOTE | 2021-12-15 22:11 | W.ED.EXTPRO ---
HPI - Extremity Problem General: Chief complaint: Extremity Problem,Nontraumatic Stated complaint: LT leg pain-cancer PT Time Seen by Provider: 12/15/21 21:47 Source: patient Mode of arrival: ambulatory Limitations: no limitations History of Present Illness: 61-year-old female states she been having left leg pain off and on for the last month with being much worse the last 2 to 3 days. States that pain is her posterior knee along with her calf and along her posterior upper leg. States pain sharp in nature seem to be worse with palpation and walking. Denies any fever denies any back pain or injuries. She rates her pain a 6 out of 10 currently [facility] ED PFSH: Medical History (Updated 12/15/21 @ 23:01 by Autumn Estevez MD) Acid reflux disease Generalized anxiety disorder Metastatic breast cancer Pulmonary embolism Schizoid personality disorder Surgical History (Updated 11/30/21 @ 06:54 by Efren Lainez MD) S/P breast biopsy, right (02/02/19) Family History Sister Cancer breast and ovarian Grandmother Cancer breast Father Diabetes Dementia Heart disease Other Psychiatric illness Denies family history of CAD (coronary artery disease) Clotting disorder Hyperlipidemia Chronic kidney disease (CKD) Suicide Anesthesia complication Bleeding disorder Lung disease Hypertension Stroke Social History Smoking and tobacco status: never smoked Second hand smoke exposure: Yes Alcohol intake: never Adopted: No Caregiver/support person: No Lives independently: Yes Household members: none Housing: House Marital status: Single Number of children: 0 Highest education level completed: Some College, No Degree service: No Current occupational status: disabled and other Details: 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, 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 Current occupational exposures/hazards: No Pets and animals: Yes Pets & animals: cat(s) History of recent travel: No Sexually active: No Current gender identity: Female Special finesse needs: No Physical Exam Const: COMMON NORMALS: no acute distress, patient oriented x3 and healthy appearing HENMT: COMMON NORMALS: normocephalic and atraumatic HEAD & SCALP: normocephalic and atraumatic Eye: COMMON NORMALS: Equal, round and reactive pupils present and EOMs intact bilaterally PUPIL: Yes Equal, round and reactive pupils present Neck/C-Spine: COMMON NORMALS: full ROM and supple Chest: COMMONS NORMALS: normal inspection of the chest Resp: COMMON NORMALS: normal respiratory effort and No retractions Cardio: COMMON NORMALS: regular rate, regular rhythm and No murmurs present (Cardio) RATE: regular rate RHYTHM: regular rhythm GI: INSPECTION: Yes normal to inspection Extremity: NARRATIVE EXTREMITY EXAM: Tenderness along posterior knee along with calf along with posterior upper leg no erythema no warmth to touch no low back pain or back tenderness Neuro: COMMON NORMALS: patient oriented x3, moves all extremities and no focal motor deficits Psych: COMMON NORMALS: mental status grossly normal, Normal thought process present and cooperative THOUGHT PROCESS: Normal thought process present Skin: COMMON NORMALS: no rashes or lesions noted and no wounds GENERAL SKIN EXAM: no rashes or lesions noted Course Vital Signs: Vital signs: Vital Signs Temperature 98.4 F 12/15/21 21:21 Pulse Rate 96 12/15/21 21:21 Respiratory Rate 17 12/15/21 21:21 Blood Pressure 160/91 12/15/21 21:21 Pulse Oximetry 97 12/15/21 21:21 MDM - Extremity (Nontraumatic) Medical Decision Making Patient presents here with left leg pain has been going on intermittently for a month her exam here is benign she has good distal pulses ultrasound showed no DVT she has no signs of cellulitis we will get her in with orthopedics she is to follow-up with her PCP as well she is return if worsening she understands agrees to plan. She has no back pain here. Discharge Plan Discharge Patient Disposition: Home Clinical Impression: Left leg pain Condition: Stable Prescriptions: New hydrocodone-acetaminophen 5-325 mg tablet 1 tab PO Q6H PRN (Reason: pain) Qty: 14 0RF No Action pantoprazole 20 mg tablet,delayed release (DR/EC) 40 mg PO DAILY PRN0RF albuterol sulfate 90 mcg/actuation HFA aerosol inhaler 2 puff inhalation Q6H PRN0RF Eliquis 5 mg tablet 5 mg PO BID Qty: 60 5RF Discharge Orders: Discharge ED (Routine); Ordered 12/15/21 Ordered By: Autumn Estevez Referrals: Wayne Blevins DO [Physician] - 1-3 days Laura Lyons DO [Primary Care Provider] - Discharge Diet: Advance as tolerated Discharge Activity: Resume usual activity Patient Instructions: Leg Pain (ED) Coding Level of Care Code ED [place] Manager for [employer] Fwd Exam Comprehensive
[2021-12-15 23:16] VITALS: BP 158/88; PULSE 92; RESP 18; TEMP 36.7; O2SAT 96
--- NOTE | 2021-12-21 10:32 | DCPLANNER ---
Addendum entered by Meghana Fitzpatrick 02/10/22 11:53: Patient had a follow up appointment scheduled for 01.13.22 with ortho - patient did attend appointment. Addendum entered by Meghana Fitzpatrick 01/11/22 11:45: Patient has a follow up appointment scheduled for Thursday, January 13, 2022 at 11:00 with Anant Isabel at ortho. Clinic will call patient with appointment information. Original Note: social services manager had message to schedule a follow up appointment for patient with ortho. social services manager sent patients information to the front office staff at ortho. Patients information will be printed and reviewed. Clinic will call patient with appointment information.
== END 2021-12-15 23:18 | disposition home or self-care (01) ==
PROVIDERS: Emergency Provider Emergency Medicine; PCP Family Medicine
DX: M79.605 Pain in left leg (principal); Z79.01 Long term (current) use of anticoagulants; Z77.22 Contact with and (suspected) exposure to environmental tobacco smoke (acute) (chronic); Z86.711 Personal history of pulmonary embolism
CPT/HCPCS: 93971; 99283

== ENCOUNTER 2021-12-29 14:20 | Oncology outpatient (recurring) (ONCR) | payer MEDICARE, MEDICAID, SELFPAY ==
[2021-12-29 15:00] LABS: Basophils % 0.7 %; Eosinophils # 0.1 10^3/uL (0.0-0.8); Eosinophils % 2.9 %; Hematocrit 29.9 % (37.0-47.0); Hemoglobin 9.4 g/dL (11.5-15.3); Lymphocytes # 1.3 10^3/uL (0.8-4.8); Lymphocytes % 30.3 %; Mean Corpuscular HGB Conc 31.4 g/dL (30.0-36.0); Mean Corpuscular Hemoglobin 30.1 pg (28.0-34.0); Mean Corpuscular Volume 95.8 fl (81-99); Mean Platelet Volume 9.8 fL (7.4-10.4); Monocytes # 0.3 10^3/uL (0.2-0.9); Monocytes % 7.4 %; Neutrophils # 2.45 10^3/uL (1.8-7.7); Neutrophils % 58.5 %; Nucleated Red Blood Cells % 0 %; Platelet Count 240 10^3/cmm (130-400); Red Blood Count 3.12 10^6/uL (4.1-5.3); Red Cell Distribution Width 16.1 % (12.1-15.1); White Blood Count 4.2 10^3/uL (4.0-10.0)
[2021-12-29 15:19] LABS: Alanine Aminotransferase 13 U/L (0-33); Albumin Level 3.8 g/dL (3.5-5.2); Alkaline Phosphatase 106 IU/L (35-105); Anion Gap 13.9 (5-19); Aspartate Amino Transferase 15 U/L (0-32); Blood Urea Nitrogen 30 mg/dL (8-23); Calcium 8.3 mg/dL (8.5-10.5); Carbon Dioxide 25 mmol/L (22-29); Chloride 107 mmol/L (98-107); Globulin 3.1 g/dL (1.3-4.6); Glomerular Filtration Rate 101.6 mL/min (90-130); Glucose 133 mg/dL (65-115); Osmolality Calculated 302 mOsm/kg (285-295); Potassium 3.9 mmol/L (3.5-5.1); Sodium 142 mmol/L (136-145); Total Bilirubin 0.2 mg/dL (0.15-1.2); Total Protein 6.9 g/dL (6.6-8.7)
== END 2022-01-17 23:59 | disposition home or self-care (01) ==
PROVIDERS: PCP Family Medicine; Visit Provider Internal Medicine Medical Oncology
DX: C50.811 Malignant neoplasm of overlapping sites of right female breast (principal); M25.562 Pain in left knee; Z17.0 Estrogen receptor positive status [ER+]; Z79.01 Long term (current) use of anticoagulants; Z86.711 Personal history of pulmonary embolism; Z79.891 Long term (current) use of opiate analgesic
CPT/HCPCS: 80053; 85025; 99214; 99215

== ENCOUNTER 2022-01-04 09:15 | Outpatient (CLI) | payer MEDICARE, MEDICAID, SELFPAY ==
--- NOTE | 2022-01-04 10:00 | XR_ITS ---
WS: [id number] XR knee LT 1-2V [id number] REASON FOR EXAM: pain left knee FINDINGS: No fracture or focal bone lesion. Significant narrowing of the medial knee joint space with subchondral sclerosis and small marginal os teophytes. The lateral knee joint spaces relatively well-preserved. Mild to moderate narrowing of the patellofemoral joint space with large marginal osteophytes from the patella and femur. No soft tissue abnormality. XR/XR knee LT 1-2V [id number] IMPRESSION: Moderate to significant osteoarthritis in the left knee as above.
== END 2022-01-04 09:16 | disposition home or self-care (01) ==
PROVIDERS: PCP Internal Medicine Medical Oncology; Visit Provider Internal Medicine Medical Oncology
DX: M25.562 Pain in left knee (principal); M17.0 Bilateral primary osteoarthritis of knee
CPT/HCPCS: 73560

== ENCOUNTER → 2022-01-13 11:29 | Outpatient (BNVA) | payer MEDICARE, MEDICAID, SELFPAY | PROVIDERS: PCP Internal Medicine Medical Oncology; Referring Provider Emergency Medicine; Visit Provider Nurse Practitioner Family | DX: M17.12 Unilateral primary osteoarthritis, left knee (principal); M25.562 Pain in left knee | CPT/HCPCS: 20610; 73560; 73565; 99213; 99214 ==

== ENCOUNTER 2022-02-02 08:01 | Oncology outpatient (recurring) (ONCR) | payer MEDICARE, MEDICAID, SELFPAY ==
--- NOTE | 2022-02-02 08:09 | NM_ITS ---
WS: [id number] NUCLEAR MEDICINE BONE SCAN Radiopharmaceutical: 23.1 Tc-99m MDP mCi IV Injection site: RIGHT antecubital Postinjection imaging delay: 1 hr CLINICAL INFORMATION: breast cancer, pain left knee and left leg COMPARISON: None. FINDINGS: Bone lesions: Tiny nonspecific vague low-grade focus of uptake in the proximal LEFT humeral shaft pos teriorly. This can be further evaluated with radiographs and/or CT. Otherwise no evidence of metastat ic disease. Soft tissue contours: Normal. Kidneys: Normal. Other findings: Focal uptake involving the medial joint compartment LEFT knee likely degenerative wit h [id number] articulation. Mild degenerative uptake RIGHT knee. Degenerative uptake involving both ankles. NM/NM bone scan whole body* [id number] IMPRESSION: 1. Focal uptake involving the medial joint compartment LEFT knee likely degene rative with [id number] articulation. If persistent concern, this could be fur ther evaluated with MRI or CT. 2. Tiny nonspecific vague low-grade focus of uptake in the proximal LEFT humer al shaft posteriorly. This can be further evaluated with radiographs and/or CT. 3. Otherwise no evidence of osseous metastatic disease.
== END 2022-02-17 23:59 | disposition home or self-care (01) ==
LOC: RAD 02-04 15:32 → ONCMED 02-16 04:37
PROVIDERS: PCP Internal Medicine Medical Oncology; Visit Provider Internal Medicine Medical Oncology
DX: C50.811 Malignant neoplasm of overlapping sites of right female breast (principal); M25.562 Pain in left knee
CPT/HCPCS: 78306; A9561

== ENCOUNTER → 2022-03-17 10:50 | Outpatient (BNVA) | payer MEDICARE, MEDICAID, OTHER, SELFPAY | PROVIDERS: PCP Internal Medicine Medical Oncology; Referring Provider Family Medicine; Visit Provider Surgery | DX: K92.1 Melena (principal) | CPT/HCPCS: 99024 ==

== ENCOUNTER 2022-03-29 12:47 | Oncology outpatient (recurring) (ONCR) | payer MEDICARE, MEDICAID, SELFPAY ==
[2022-03-29 13:10] LABS: Basophils # 0.1 10^3/uL (0.0-0.1); Basophils % 1.2 %; Hematocrit 30.1 % (37.0-47.0); Hemoglobin 9.7 g/dL (11.5-15.3); Lymphocytes # 1.3 10^3/uL (0.8-4.8); Lymphocytes % 33.2 %; Mean Corpuscular HGB Conc 32.2 g/dL (30.0-36.0); Mean Corpuscular Volume 99.3 fl (81-99); Monocytes # 0.3 10^3/uL (0.2-0.9); Monocytes % 7.4 %; Neutrophils # 2.29 10^3/uL (1.8-7.7); Neutrophils % 56.7 %; Nucleated Red Blood Cells % 0 %; Platelet Count 307 10^3/cmm (130-400); Red Blood Count 3.03 10^6/uL (4.1-5.3); Red Cell Distribution Width 22.5 % (12.1-15.1)
[2022-03-29 13:33] LABS: Alanine Aminotransferase 13 U/L (0-33); Albumin Level 3.6 g/dL (3.5-5.2); Alkaline Phosphatase 98 U/L (35-105); Anion Gap 12.2 (5-19); Aspartate Amino Transferase 13 U/L (0-32); Blood Urea Nitrogen 14 mg/dL (8-23); CA 15-3 27.1 U/mL (0-25); Calcium 8.6 mg/dL (8.5-10.5); Carbon Dioxide 27 mmol/L (22-29); Chloride 104 mmol/L (98-107); Globulin 3.2 g/dL (1.3-4.6); Glomerular Filtration Rate 125.4 mL/min (90-130); Glucose 101 mg/dL (65-115); Osmolality Calculated 289 mOsm/kg (285-295); Potassium 4.2 mmol/L (3.5-5.1); Sodium 139 mmol/L (136-145); Total Bilirubin 0.4 mg/dL (0.15-1.2); Total Protein 6.8 g/dL (6.6-8.7)
[2022-03-29 15:10] LABS: Iron 47 ug/dL (37-145); Total Iron Binding Capacity 391 mcg/dl; Unsaturated Iron Binding 344 ug/dL (112-347)
[2022-03-29 15:25] LABS: Vitamin B12 443 pg/mL (232-1245)
== END 2022-04-19 23:59 | disposition home or self-care (01) ==
PROVIDERS: Nurse Practitioner; PCP Family Medicine; Visit Provider Internal Medicine Medical Oncology
DX: C50.811 Malignant neoplasm of overlapping sites of right female breast (principal); Z17.0 Estrogen receptor positive status [ER+]; Z86.711 Personal history of pulmonary embolism; D50.9 Iron deficiency anemia, unspecified; Z79.818 Long term (current) use of other agents affecting estrogen receptors and estrogen levels; Z79.899 Other long term (current) drug therapy
CPT/HCPCS: 36415; 80053; 82607; 83540; 83550; 85025; 86300; 99214

== ENCOUNTER 2022-05-25 07:36 | Day surgery (SDC) | payer MEDICARE, MEDICAID, SELFPAY ==
[2022-05-24 09:33] VITALS: BMI 39.4
[2022-05-25 08:05] VITALS: BP 120/93; PULSE 94; RESP 16; TEMP 36.7; O2SAT 93
[2022-05-25] MEDS: sodium chloride 0.9% 1,000 ML 30 ML IV (08:15)
--- NOTE | 2022-05-25 08:25 | ANES.PREANE2 ---
Pre-Anesthetic Assessment Height/Weight: Height 1.5 m Weight 88.451 kg Temp Pulse Resp BP Pulse Ox O2 Del Method 98.1 F 94 16 120/93 93 05/25/22 08:05 05/25/22 08:05 05/25/22 08:05 05/25/22 08:05 05/25/22 08:05 05/25/22 08:05 Preop Diagnosis: Occult blood positive in stool Operation Date: 05/25/22 09:15 Proposed Procedures p Colonoscopy 20414,K92.1(Not Applicable) - Lv Sotelo MD Was Beta Shahnaz taken within 24 hours: N/A Was Clonidine taken within 24 hours: N/A Last intake: Intake Last Liquid Date 05/24/22 Last Liquid Time 22:00 Last Solid Date 05/23/22 Last Solid Time 20:00 Social No alcohol and No tobacco Exam alert, oriented x 3, clear to auscultation bilaterally and regular rate & rhythm Airway Submandibular: within normal limits Cervical ROM: within normal limits Mallampati: Class II Dentition: full History/ROS No significant history except as noted and No significant complaints Pulmonary Hx PE CV/HEM None reported None reported Hepatic None reported GI Gastroesophageal Reflux Disease Metabolic None reported Musc/skel None reported Neuropsych Anxiety Schizoid personality disorder Anesthetic Plan ASA status: 3 Anesthesia: Anesthesia Evaluation and MAC Risk of > 500 ml blood loss (7ml/kg in children): No Medications/Allergies Home Medications Medication Instructions Recorded Confirmed Last Taken Type albuterol sulfate 90 mcg/actuation 2 puff inhalation Q6H PRN 10/28/21 05/24/22 05/24/22 History aerosol inhaler Shortness Of Breath apixaban 5 mg tablet (Eliquis) 5 mg PO BID #60 tabs 11/26/21 05/24/22 05/24/22 Rx naproxen 500 mg tablet (Naprosyn) 500 mg PO BID PRN pain #20 tabs 12/15/21 05/24/22 05/24/22 Rx pantoprazole 40 mg tablet,delayed 40 mg PO DAILY #30 tabs 02/03/22 05/24/22 05/24/22 Rx release letrozole 2.5 mg tablet 2.5 mg PO DAILY #90 tabs 04/07/22 05/24/22 05/24/22 Rx palbociclib 125 mg tablet (Ibrance) 125 mg PO DAILY #21 tabs 04/07/22 05/24/22 05/24/22 Rx Allergies Allergy/AdvReac Type Severity Reaction Status Date / Time No Known Allergies Allergy Verified 05/24/22 09:29 Current Medications Generic Name Dose Route Start Last Admin Trade Name Erick PRN Reason Stop Dose Admin Sodium Chloride 1,000 mls @ 30 mls/hr 05/25/22 08:00 05/25/22 08:15 Sodium Chloride 0.9% IV 05/26/22 07:59 30 mls/hr .Q24H RADHA Administration PFSH Anesthesia Medical History Acid reflux disease Generalized anxiety disorder Metastatic breast cancer Pulmonary embolism Schizoid personality disorder Surgical History S/P breast biopsy, right (02/02/19) Family History Sister Cancer breast and ovarian Grandmother Cancer breast Father Diabetes Dementia Heart disease Other Psychiatric illness Denies family history of CAD (coronary artery disease) Clotting disorder Hyperlipidemia Chronic kidney disease (CKD) Suicide Anesthesia complication Bleeding disorder Lung disease Hypertension Stroke Social History Smoking and tobacco status: never smoked Second hand smoke exposure: Yes Alcohol intake: never Adopted: No Caregiver/support person: No Lives independently: Yes Household members: none Housing: House Marital status: Single Number of children: 0 Highest education level completed: Some College, No Degree service: No Current occupational status: disabled and other Details: 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
--- NOTE | 2022-05-25 09:26 | W.PM.OPSFHP ---
Same Day Surgery H&P Indication for Procedure/HPI DATE OF PROCEDURE: May 25, 2022 CHIEF COMPLAINT/INDICATIONFOR SURGICAL PROCEDURE: Blood in stool PREOP DIAGNOSIS: Occult blood positive in stool PLANNED PROCEDURE: Operation Date: 05/25/22 09:15 Proposed Procedures p Colonoscopy 98286,K92.1(Not Applicable) - Lv Sotelo MD 03/17/2022 This is a pleasant 61 years old female patient reports that she had Hemoccult positive in stool and never had a colonoscopy before.? Denies unintentional weight loss and no history of colon cancer.? Yet she is breast cancer survivor.? She comes today with her friend to discuss colonoscopy. 05/25/2022 Patient comes today for colonoscopy. ROS All systems have been reviewed negative except as for the above or per problem list. Medications/Allergies* Home Medications Medication Instructions Recorded Confirmed Type albuterol sulfate 90 mcg/actuation 2 puff inhalation Q6H PRN 10/28/21 05/24/22 History aerosol inhaler Shortness Of Breath Allergies/Adverse Reactions Allergy/AdvReac Type Severity Reaction Status Date / Time No Known Allergies Allergy Verified 05/25/22 09:27 Current Medications: Generic Name Dose Route Start Last Admin Trade Name Freq PRN Reason Stop Dose Admin Sodium Chloride 1,000 mls @ 30 mls/hr 05/25/22 08:00 05/25/22 08:15 Sodium Chloride 0.9% IV 05/26/22 07:59 30 mls/hr .Q24H RADHA Administration Pertinent History/Comorbid Conditions* Medical History (Updated 04/02/22 @ 16:47 by Efren Lainez MD) Acid reflux disease Generalized anxiety disorder Metastatic breast cancer Pulmonary embolism Schizoid personality disorder Surgical History (Updated 11/30/21 @ 06:54 by Efren Lainez MD) S/P breast biopsy, right (02/02/19) Family History (Updated 10/28/21 @ 13:43 by Heike Silver LPN) Diabetes Father Dementia Father Heart disease Father Psychiatric illness Cancer Sister breast and ovarian Grandmother breast Denies family history of CAD (coronary artery disease) Clotting disorder Hyperlipidemia Chronic kidney disease (CKD) Suicide Anesthesia complication Bleeding disorder Lung disease Hypertension Stroke Social History Smoking and tobacco status: never smoked Second hand smoke exposure: Yes Alcohol intake: never Adopted: No Caregiver/support person: No Lives independently: Yes Household members: none Housing: House Marital status: Single Number of children: 0 Highest education level completed: Some College, No Degree service: No Current occupational status: disabled and other Details: 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
[2022-05-25 10:07] VITALS: BP 102/70; PULSE 72; RESP 16; TEMP 36.6; O2SAT 96
[2022-05-25 10:12] VITALS: BP 107/69; PULSE 79; RESP 18; O2SAT 95
--- NOTE | 2022-05-25 16:31 | ANE.PACU2 ---
Inpatient post-anesthesia follow up: Airway intact: Yes Vital signs: Temperature 97.8 F Pulse Rate 79 Respiratory Rate 18 Blood Pressure 107/69 Pulse Oximetry 95 Oxygen Delivery Me thod Room Air Oxygen Flow Rate Fraction of Inspir ed Oxygen Hydration adequate: Yes Nausea and vomiting: No Pain level: 2 Mental status: Baseline
== END 2022-05-25 10:30 | disposition home or self-care (01) ==
PROVIDERS: PCP Family Medicine; Visit Provider Surgery
PROC: 0DJD8ZZ Inspection of Lower Intestinal Tract, Via Natural or Artificial Opening Endoscopic (ICD-10-PCS; CPT 45378; principal; 2022-05-25 09:15)
DX: K92.1 Melena (principal); K57.30 Diverticulosis of large intestine without perforation or abscess without bleeding; K21.9 Gastro-esophageal reflux disease without esophagitis; F60.1 Schizoid personality disorder; F41.1 Generalized anxiety disorder; Z86.711 Personal history of pulmonary embolism
CPT/HCPCS: 45378; J2704; J7030

== ENCOUNTER → 2022-06-01 15:13 | Outpatient (BNVA) | payer MEDICARE, MEDICAID, SELFPAY | PROVIDERS: PCP Family Medicine; Visit Provider Surgery | DX: Z09 Encounter for follow-up examination after completed treatment for conditions other than malignant neoplasm (principal); K57.31 Diverticulosis of large intestine without perforation or abscess with bleeding | CPT/HCPCS: 99212 ==

== ENCOUNTER 2022-07-08 14:20 | Oncology outpatient (recurring) (ONCR) | payer MEDICARE, MEDICAID, SELFPAY ==
[2022-07-08 13:33] LABS: Basophils # 0.1 10^3/uL (0.0-0.1); Basophils % 0.9 %; Eosinophils # 0.1 10^3/uL (0.0-0.8); Eosinophils % 1.5 %; Hematocrit 35.9 % (37.0-47.0); Hemoglobin 11.5 g/dL (11.5-15.3); Lymphocytes # 1.5 10^3/uL (0.8-4.8); Lymphocytes % 27.3 %; Mean Corpuscular Hemoglobin 33.4 pg (28.0-34.0); Mean Corpuscular Volume 104.4 fl (81-99); Mean Platelet Volume 9.9 fL (7.4-10.4); Monocytes # 0.3 10^3/uL (0.2-0.9); Monocytes % 6.4 %; Neutrophils # 3.39 10^3/uL (1.8-7.7); Neutrophils % 63.7 %; Nucleated Red Blood Cells % 0 %; Platelet Count 294 10^3/cmm (130-400); Red Blood Count 3.44 10^6/uL (4.1-5.3); Red Cell Distribution Width 18.1 % (12.1-15.1); White Blood Count 5.3 10^3/uL (4.0-10.0)
[2022-07-08 13:51] LABS: Alanine Aminotransferase 18 U/L (0-33); Alkaline Phosphatase 109 U/L (35-105); Aspartate Amino Transferase 21 U/L (0-32); Blood Urea Nitrogen 17 mg/dL (8-23); Calcium 9.3 mg/dL (8.5-10.5); Carbon Dioxide 30 mmol/L (22-29); Chloride 104 mmol/L (98-107); Globulin 3.1 g/dL (1.3-4.6); Glomerular Filtration Rate 101.3 mL/min (90-130); Glucose 106 mg/dL (65-115); Osmolality Calculated 298 mOsm/kg (285-295); Sodium 143 mmol/L (136-145); Total Bilirubin 0.3 mg/dL (0.15-1.2); Total Protein 7.1 g/dL (6.6-8.7)
[2022-07-08 13:52] LABS: Anion Gap 13.7 (5-19); Potassium 4.7 mmol/L (3.5-5.1)
== END 2022-07-20 23:59 | disposition home or self-care (01) ==
PROVIDERS: PCP Family Medicine; Visit Provider Internal Medicine Medical Oncology
DX: C50.811 Malignant neoplasm of overlapping sites of right female breast (principal); Z17.0 Estrogen receptor positive status [ER+]; Z86.711 Personal history of pulmonary embolism; D50.9 Iron deficiency anemia, unspecified; Z79.01 Long term (current) use of anticoagulants; Z79.818 Long term (current) use of other agents affecting estrogen receptors and estrogen levels; Z79.899 Other long term (current) drug therapy
CPT/HCPCS: 36415; 80053; 85025; 86300; 99214

== ENCOUNTER 2022-10-12 14:35 | Oncology outpatient (recurring) (ONCR) | payer MEDICARE, SELFPAY ==
[2022-10-12 15:37] LABS: Basophils % 0.9 %; Eosinophils # 0.1 10^3/uL (0.0-0.8); Eosinophils % 2.1 %; Lymphocytes # 1.3 10^3/uL (0.8-4.8); Lymphocytes % 28.8 %; Mean Corpuscular HGB Conc 32.4 g/dL (30.0-36.0); Mean Corpuscular Hemoglobin 34.8 pg (28.0-34.0); Mean Corpuscular Volume 107.2 fl (81-99); Mean Platelet Volume 9.9 fL (7.4-10.4); Monocytes # 0.4 10^3/uL (0.2-0.9); Monocytes % 9.1 %; Neutrophils # 2.58 10^3/uL (1.8-7.7); Neutrophils % 58.9 %; Nucleated Red Blood Cells % 0 %; Platelet Count 273 10^3/cmm (130-400); Red Blood Count 3.45 10^6/uL (4.1-5.3); Red Cell Distribution Width 16.2 % (12.1-15.1); White Blood Count 4.4 10^3/uL (4.0-10.0)
[2022-10-12 16:16] LABS: Alanine Aminotransferase 15 U/L (0-33); Alkaline Phosphatase 101 U/L (35-105); Anion Gap 11.8 (5-19); Aspartate Amino Transferase 13 U/L (0-32); Blood Urea Nitrogen 22 mg/dL (8-23); CA 15-3 29.4 U/mL (0-25); Calcium 8.6 mg/dL (8.5-10.5); Carbon Dioxide 30 mmol/L (22-29); Chloride 104 mmol/L (98-107); Globulin 2.8 g/dL (1.3-4.6); Glomerular Filtration Rate 101.3 mL/min (90-130); Glucose 128 mg/dL (65-115); Osmolality Calculated 297 mOsm/kg (285-295); Potassium 4.8 mmol/L (3.5-5.1); Sodium 141 mmol/L (136-145); Total Bilirubin 0.2 mg/dL (0.15-1.2); Total Protein 6.8 g/dL (6.6-8.7)
== END 2022-10-17 23:59 | disposition home or self-care (01) ==
PROVIDERS: PCP Family Medicine; Visit Provider Internal Medicine Medical Oncology
DX: C50.811 Malignant neoplasm of overlapping sites of right female breast (principal); Z17.0 Estrogen receptor positive status [ER+]; Z86.711 Personal history of pulmonary embolism; D50.9 Iron deficiency anemia, unspecified; Z79.818 Long term (current) use of other agents affecting estrogen receptors and estrogen levels; Z79.899 Other long term (current) drug therapy; Z79.01 Long term (current) use of anticoagulants; M17.12 Unilateral primary osteoarthritis, left knee; D64.9 Anemia, unspecified
CPT/HCPCS: 36415; 80053; 85025; 86300; 99214

== ENCOUNTER 2023-01-25 11:41 | Oncology outpatient (recurring) (ONCR) | payer MEDICARE, MEDICAID, SELFPAY ==
[2023-01-25 11:49] VITALS: BP 124/77; PULSE 96; RESP 18; TEMP 36.7; O2SAT 93
[2023-01-25 12:14] LABS: Basophils # 0.1 10^3/uL (0.0-0.1); Basophils % 1.6 %; Eosinophils # 0.1 10^3/uL (0.0-0.8); Eosinophils % 1.2 %; Hematocrit 36.8 % (37.0-47.0); Hemoglobin 12.2 g/dL (11.5-15.3); Lymphocytes # 1.1 10^3/uL (0.8-4.8); Lymphocytes % 21.9 %; Mean Corpuscular HGB Conc 33.2 g/dL (30.0-36.0); Mean Corpuscular Hemoglobin 35.7 pg (28.0-34.0); Mean Corpuscular Volume 107.6 fl (81-99); Mean Platelet Volume 9.6 fL (7.4-10.4); Monocytes # 0.4 10^3/uL (0.2-0.9); Monocytes % 8.2 %; Neutrophils # 3.22 10^3/uL (1.8-7.7); Neutrophils % 66.5 %; Nucleated Red Blood Cells % 0 %; Platelet Count 389 10^3/cmm (130-400); Red Blood Count 3.42 10^6/uL (4.1-5.3); Red Cell Distribution Width 15.6 % (12.1-15.1); White Blood Count 4.9 10^3/uL (4.0-10.0)
[2023-01-25 12:42] LABS: Slide Review Slide Review Perform
[2023-01-25 12:44] LABS: Alanine Aminotransferase 25 U/L (0-33); Albumin Level 3.8 g/dL (3.5-5.2); Alkaline Phosphatase 97 U/L (35-105); Anion Gap 12.6 (5-19); Aspartate Amino Transferase 22 U/L (0-32); Blood Urea Nitrogen 24 mg/dL (8-23); Calcium 8.9 mg/dL (8.5-10.5); Carbon Dioxide 27 mmol/L (22-29); Chloride 104 mmol/L (98-107); Globulin 2.8 g/dL (1.3-4.6); Glomerular Filtration Rate 101.3 mL/min (90-130); Glucose 82 mg/dL (65-115); Osmolality Calculated 291 mOsm/kg (285-295); Potassium 4.6 mmol/L (3.5-5.1); Sodium 139 mmol/L (136-145); Total Bilirubin 0.4 mg/dL (0.15-1.2); Total Protein 6.6 g/dL (6.6-8.7)
== END 2023-02-17 23:59 | disposition home or self-care (01) ==
PROVIDERS: PCP Family Medicine; Visit Provider Internal Medicine Medical Oncology
DX: C50.811 Malignant neoplasm of overlapping sites of right female breast (principal); Z17.0 Estrogen receptor positive status [ER+]; Z86.711 Personal history of pulmonary embolism; D50.9 Iron deficiency anemia, unspecified; Z79.818 Long term (current) use of other agents affecting estrogen receptors and estrogen levels; Z79.899 Other long term (current) drug therapy; Z79.01 Long term (current) use of anticoagulants
CPT/HCPCS: 36415; 80053; 85025; 86300; 99214

== ENCOUNTER → 2023-02-03 14:35 | Outpatient (BNVA) | payer MEDICARE, MEDICAID, SELFPAY | PROVIDERS: PCP Family Medicine; Visit Provider Nurse Practitioner Family | DX: M17.12 Unilateral primary osteoarthritis, left knee | CPT/HCPCS: 20610; 73560; 73565; 99213; J1100; J2795; J3301 ==

== ENCOUNTER 2023-02-23 12:51 | Outpatient (CLI) | payer MEDICARE, MEDICAID, SELFPAY ==
--- NOTE | 2023-02-23 12:55 | MM_ITS ---
WS: [id number] BILATERAL 3D TOMOSYNTHESIS DIGITAL SCREENING MAMMOGRAPHY WITH CAD CLINICAL INFORMATION: screening mammmogram HISTORY: Screening mammogram. No current complaints. COMPARISON: 2013 TECHNIQUE: Bilateral CC and MLO views. FINDINGS: The breasts are composed of heterogeneous fibroglandular density tissue, which can limit the detectio n of small underlying mass lesions. Nipple inversion RIGHT breast is new compared to 2013. Associated nipple and parenchymal retraction w ith increasing 3.5 x 2.9 cm suspicious parenchymal density along the posterior nipple line posterior depth at the chest wall. This is localized to the lower inner RIGHT breast. Recommend further evaluation with RIGHT breast diagnostic mammography and ultrasound LEFT breast is unremarkable and stable compared to 2013 IMPRESSION: MM/[place] [id number] BI-RADS: 0-Incomplete: Need additional imaging evaluation FOLLOW UP: Need Additional Imaging Recommend RIGHT breast diagnostic mammography and ultrasound described above
--- NOTE | 2023-02-23 13:00 | XR_ITS ---
WS: [id number] SCREENING DEXA SCAN TILE [employer] CLINICAL INFORMATION: postmenopausal COMPARISON: None. FINDINGS: The L1-L4 bone mineral density measures 1.013 g/cm2. This corresponds to a T score score of -1.4 and Z score of -0.9. Left femoral neck bone mineral density measures 0.843 g/cm2. This corresponds to a T score of -1.3 an d Z score of -0.9. Right femoral neck bone mineral density measures 0.880 g/cm2. This corresponds to a T score -1.0of an d Z score of -0.6. Mean femoral neck bone mineral density measures 0.861 g/cm2. This corresponds to a T score of -1.2 an d Z score of -0.7. IMPRESSION: Osteopenia lumbar spine and femoral necks. Patient's FRAX calculated 10 year probability for major os teoporotic fracture is 8.8% and osteoporotic hip fracture is 1.1%.
== END 2023-02-23 12:52 | disposition home or self-care (01) ==
PROVIDERS: PCP Family Medicine; Visit Provider Family Medicine
DX: Z12.31 Encounter for screening mammogram for malignant neoplasm of breast (principal); Z13.820 Encounter for screening for osteoporosis; Z78.0 Asymptomatic menopausal state; M85.89 Other specified disorders of bone density and structure, multiple sites
CPT/HCPCS: 77063; 77067; 77080

== ENCOUNTER 2023-03-28 13:26 | Outpatient (CLI) | payer MEDICARE, MEDICAID, SELFPAY ==
--- NOTE | 2023-03-28 13:44 | MM_ITS ---
WS: [id number] RIGHT 3D TOMOSYNTHESIS DIGITAL MAMMOGRAPHY WITH CAD CLINICAL INFORMATION: abnormal mammogram of right breast HISTORY: History of RIGHT breast cancer since 2019. No surgery performed. COMPARISON: 02/23/2023 and 07/31/2012 TECHNIQUE: 3 views of the right breast were obtained. FINDINGS: The right breast is composed of heterogeneous fibroglandular density tissue, which can limit the dete ction of small underlying mass lesions. Again seen is the previously described nipple inversion RIGHT breast new compared to 2013. Associated nipple and parenchymal retraction with increasing 4.8 x 2.9 cm suspicious parenchymal density along the posterior nipple line posterior depth at the chest wall. This abuts and likely invades the chest wall posteriorly. This is localized to the lower inner RIGHT breast and is unchanged since the prior examination 02/23/2023. ULTRASOUND BREAST RIGHT TECHNIQUE: Ultrasound right breast focused area of concern. CLINICAL INFORMATION: abnormal mammogram of right breast FINDINGS: Ultrasound RIGHT breast at the 5 o'clock position 2 cm from the nipple demonstrates heterogeneous hyp oechoic solid lesion compatible with neoplasm. This extends from the inverted nipple posteriorly to t he chest wall with loss of the fat plane. Presumed invasion of the chest wall. Shadowing lesion measu res approximately 3.0 x 2.9 x 1.0 cm. Associated surrounding irregular margins likely due to local in vasion. No adenopathy visualized in the RIGHT axilla. IMPRESSION: Patient with reported history of prior breast cancer diagnosed in 2019 however imaging fr om that time is not available. Presumed neoplasm in the RIGHT breast with suspected chest wall invasi on could be further evaluated with ultrasound-guided biopsy if additional tissue diagnosis is needed MM/[place] [id number] BI-RADS: 5-Highly Suggestive of Malignancy FOLLOW UP: US Guided Biopsy Recommended
--- NOTE | 2023-03-28 14:00 | US_ITS ---
WS: [id number] RIGHT 3D TOMOSYNTHESIS DIGITAL MAMMOGRAPHY WITH CAD CLINICAL INFORMATION: abnormal mammogram of right breast HISTORY: History of RIGHT breast cancer since 2019. No surgery performed. COMPARISON: 02/23/2023 and 07/31/2012 TECHNIQUE: 3 views of the right breast were obtained. FINDINGS: The right breast is composed of heterogeneous fibroglandular density tissue, which can limit the dete ction of small underlying mass lesions. Again seen is the previously described nipple inversion RIGHT breast new compared to 2013. Associated nipple and parenchymal retraction with increasing 4.8 x 2.9 cm suspicious parenchymal density along the posterior nipple line posterior depth at the chest wall. This abuts and likely invades the chest wall posteriorly. This is localized to the lower inner RIGHT breast and is unchanged since the prior examination 02/23/2023. ULTRASOUND BREAST RIGHT TECHNIQUE: Ultrasound right breast focused area of concern. CLINICAL INFORMATION: abnormal mammogram of right breast FINDINGS: Ultrasound RIGHT breast at the 5 o'clock position 2 cm from the nipple demonstrates heterogeneous hyp oechoic solid lesion compatible with neoplasm. This extends from the inverted nipple posteriorly to t he chest wall with loss of the fat plane. Presumed invasion of the chest wall. Shadowing lesion measu res approximately 3.0 x 2.9 x 1.0 cm. Associated surrounding irregular margins likely due to local in vasion. No adenopathy visualized in the RIGHT axilla. IMPRESSION: Patient with reported history of prior breast cancer diagnosed in 2019 however imaging fr om that time is not available. Presumed neoplasm in the RIGHT breast with suspected chest wall invasi on could be further evaluated with ultrasound-guided biopsy if additional tissue diagnosis is needed US/US breast RT limited* [id number] BI-RADS: 5-Highly Suggestive of Malignancy FOLLOW UP: US Guided Biopsy Recommended
== END 2023-03-28 13:27 | disposition home or self-care (01) ==
PROVIDERS: PCP Family Medicine; Visit Provider Family Medicine
DX: R92.8 Other abnormal and inconclusive findings on diagnostic imaging of breast (principal)
CPT/HCPCS: 76642; 77061; G0279

== ENCOUNTER 2023-05-03 12:53 | Oncology outpatient (recurring) (ONCR) | payer OTHER, MEDICAID, SELFPAY ==
[2023-05-03 13:04] VITALS: BP 127/84; PULSE 93; RESP 16; TEMP 36.7; O2SAT 93
[2023-05-03 13:19] LABS: Basophils % 0.7 %; Lymphocytes # 0.8 10^3/uL (0.8-4.8); Mean Corpuscular HGB Conc 32.5 g/dL (30-55); Mean Corpuscular Hemoglobin 34.7 pg (27-33); Mean Corpuscular Volume 106.8 fl (85-98); Mean Platelet Volume 9.7 fL (7.4-10.4); Monocytes # 0.4 10^3/uL (0.2-0.9); Neutrophils # 2.79 10^3/uL (1.8-7.7); Neutrophils % 68.1 %; Nucleated Red Blood Cells % 0 %; Platelet Count 212 10^3/cmm (157-399); Red Blood Count 3.37 10^6/uL (3.85-5.65); Red Cell Distribution Width 14.8 % (12.1-15.1)
[2023-05-03 13:43] LABS: Alanine Aminotransferase 16 U/L (0-33); Albumin Level 3.9 g/dL (3.5-5.2); Alkaline Phosphatase 96 U/L (35-105); Anion Gap 9.8 (5-19); Aspartate Amino Transferase 15 U/L (0-32); Blood Urea Nitrogen 17 mg/dL (8-23); CA 15-3 24.8 U/mL (0-25); Calcium 8.7 mg/dL (8.5-10.5); Carbon Dioxide 29 mmol/L (22-29); Chloride 107 mmol/L (98-107); Globulin 2.6 g/dL (1.3-4.6); Glucose 107 mg/dL (65-115); Osmolality Calculated 296 mOsm/kg (285-295); Potassium 3.8 mmol/L (3.5-5.1); Sodium 142 mmol/L (136-145); Total Bilirubin 0.2 mg/dL (0.15-1.2); Total Protein 6.5 g/dL (6.6-8.7)
== END 2023-05-19 23:59 | disposition home or self-care (01) ==
PROVIDERS: Nurse Practitioner Family; PCP Family Medicine; Visit Provider Internal Medicine Medical Oncology
DX: C50.811 Malignant neoplasm of overlapping sites of right female breast (principal)
CPT/HCPCS: 36415; 80053; 85025; 86300

== ENCOUNTER 2023-08-03 11:29 | Oncology outpatient (recurring) (ONCR) | payer MEDICARE, MEDICAID, SELFPAY ==
[2023-08-03 11:46] LABS: Basophils % 1.1 %; Eosinophils % 1.1 %; Hematocrit 36.5 % (36-47); Lymphocytes # 0.7 10^3/uL (0.8-4.8); Lymphocytes % 18.9 %; Mean Corpuscular HGB Conc 32.1 g/dL (30-55); Mean Corpuscular Volume 106.1 fl (85-98); Mean Platelet Volume 9.6 fL (7.4-10.4); Monocytes # 0.4 10^3/uL (0.2-0.9); Monocytes % 11.7 %; Neutrophils # 2.51 10^3/uL (1.8-7.7); Neutrophils % 66.9 %; Nucleated Red Blood Cells % 0 %; Platelet Count 214 10^3/cmm (157-399); Red Blood Count 3.44 10^6/uL (3.85-5.65); Red Cell Distribution Width 18.4 % (12.1-15.1); White Blood Count 3.75 10^3/uL (3.29-11.43)
[2023-08-03 12:15] LABS: Alanine Aminotransferase 54 U/L (0-33); Albumin Level 3.8 g/dL (3.5-5.2); Alkaline Phosphatase 116 U/L (35-105); Blood Urea Nitrogen 18 mg/dL (8-23); Calcium 8.6 mg/dL (8.5-10.5); Carbon Dioxide 30 mmol/L (22-29); Chloride 105 mmol/L (98-107); Globulin 2.7 g/dL (1.3-4.6); Glomerular Filtration Rate 124.6 mL/min (90-130); Glucose 91 mg/dL (65-115); Osmolality Calculated 295 mOsm/kg (285-295); Sodium 142 mmol/L (136-145); Total Bilirubin 0.2 mg/dL (0.15-1.2); Total Protein 6.5 g/dL (6.6-8.7)
[2023-08-03 12:16] LABS: Anion Gap 11.2 (5-19); Potassium 4.2 mmol/L (3.5-5.1)
[2023-08-03 12:17] LABS: Aspartate Amino Transferase 35 U/L (0-32)
== END 2023-08-18 23:59 | disposition home or self-care (01) ==
PROVIDERS: Nurse Practitioner Family; PCP Family Medicine; Visit Provider Internal Medicine Medical Oncology
DX: C50.811 Malignant neoplasm of overlapping sites of right female breast (principal)
CPT/HCPCS: 36415; 80053; 85025; 86300

== ENCOUNTER 2023-09-01 07:58 | Outpatient (CLI) | payer MEDICARE, MEDICAID, SELFPAY ==
[2023-09-01] MEDS: iohexol 350 mg/mL 500 mL Btl (per mL) PO (08:56)
--- NOTE | 2023-09-01 09:00 | CTR_ITS ---
PROCEDURE INFORMATION: Exam: CT Chest With Contrast; Diagnostic Exam date and time: 09/01/2023 9:06 AM Age: 63 years old Clinical indication: Condition or disease; Other: Breast cancer; Follow-up oncological assessment; Additional info: Restaging of cancer TECHNIQUE: Imaging protocol: Diagnostic computed tomography of the chest with contrast. Radiation optimization: All CT scans at this facility use at least one of these dose optimization techniques: automated exposure control; mA and/or kV adjustment per patient size (includes targeted exams where dose is matched to clinical indication); or iterative reconstruction. Contrast material: OMNI 350; Contrast volume: 100 ml; Contrast route: INTRAVENOUS (IV); COMPARISON: CT angio chest PE protcl [id number] 12/04/2021 9:39 AM RADIATION DOSE METRICS: Total DLP (mGy-cm): 1086.25 FINDINGS: Thyroid: The included portions of the thyroid gland are unremarkable Lungs: There are calcified granulomata in both lungs. There are other nodules in both lungs that are stable that are not clearly calcified but are likely also granulomata there is scarring/chronic atelectasis in both lower lobes, the right middle lobe and lingula. Pleural spaces: There is no pleural effusion There is a soft tissue nodule anteriorly projecting adjacent to the superior left pericardial on series 4, image 22 which is stable measuring 2.5 1.3 cm. Heart: There is no pericardial effusion. Lymph nodes: There are calcified mediastinal and hilar lymph nodes. No significant enlargement of noncalcified lymph nodes is noted. There is no axillary adenopathy detected Vasculature: Unremarkable. No aortic aneurysm. Diaphragm: There is a moderate-sized hiatal hernia. There is abnormal soft tissue projecting in the medial aspect of the right breast with some distortion of the right breast as before most consistent with postsurgical scar. Bones/joints: No lytic or blastic bony lesions are detected. There are degenerative changes in the spine Soft tissues: See Diaphragm finding. IMPRESSION: Impression CT chest: 1. Postsurgical changes right breast 2. Prominent calcified mediastinal and hilar lymph nodes as before consistent with prior granulomatous disease. No significantly prominent noncalcified mediastinal or hilar lymph nodes are detected 3. Multiple pulmonary nodules which are stable. Some of these are clearly calcified. Some of them are not but they appear stable 4. Extensive scarring and atelectasis lung bases without definite infiltrate 5.Stable soft tissue focus anterior left mediastinum 6. Moderate-sized hiatal hernia PROCEDURE INFORMATION: Exam: CT Abdomen And Pelvis With Contrast Exam date and time: 09/01/2023 9:06 AM Age: 63 years old Clinical indication: Condition or disease; Other: Breast cancer; Follow-up oncological assessment; Additional info: Restaging of cancer TECHNIQUE: Imaging protocol: Computed tomography of the abdomen and pelvis with contrast. Radiation optimization: All CT scans at this facility use at least one of these dose optimization techniques: automated exposure control; mA and/or kV adjustment per patient size (includes targeted exams where dose is matched to clinical indication); or iterative reconstruction. Contrast material: OMNI 350; Contrast volume: 100 ml; Contrast route: INTRAVENOUS (IV); COMPARISON: CT chest abdpel w/*[id number] 10/20/2021 11:21 AM RADIATION DOSE METRICS: Total DLP (mGy-cm): 1086.25 FINDINGS: Liver: Normal. No mass. Gallbladder and bile ducts: There is enhancing soft tissue associated with the gallbladder fundus which is chronic and is likely adenomyosis. There is a gallstone in the gallbladder neck. There is no gallbladder wall thickening or biliary ductal dilatation. There is a small umbilical hernia containing only Pancreas: There are no pancreatic masses and there is no pancreatic ductal dilatation. Spleen: No abnormality detected in the spleen. Adrenal glands: The adrenal glands are unremarkable. Kidneys and ureters: There are low-density lesions in both kidneys most consistent with small cysts. There are no renal or ureteral calculi and there is no hydronephrosis Stomach and bowel: There may be wall thickening involving the gastric body versus underdistention. The bowel-gas pattern is not obstructed. Appendix: The appendix is normal Intraperitoneal space: Unremarkable. No free air. No significant fluid collection. Vasculature: Unremarkable. No abdominal aortic aneurysm. Lymph nodes: Unremarkable. No enlarged lymph nodes. Urinary bladder: The bladder is unremarkable. Reproductive: There are uterine masses consistent with uterine fibroids. Bones/joints: No lytic or blastic bony lesions are detected. There are no acute fractures. Old superior endplate corner fracture at T12 again noted Soft tissues: There is diverticulosis without CT evidence for active diverticulitis there is chronic wall thickening involving the sigmoid colon as before CT/CT chest abdpel w/*[id number] IMPRESSION: 1. No definite metastatic disease in the abdomen and pelvis 2. Possible wall thickening portions of the stomach versus underdistention 3. Probable small cysts both kidneys though too small to accurately characterize. No specific follow-up recommended. These are stable 4. Diverticulosis without CT evidence for active diverticulitis 5. Fibroid uterus line 6. Small umbilical hernia containing only 7. Probable adenomyosis gallbladder fundus. Gallstone projecting in the region of the gallbladder neck without gallbladder wall thickening or biliary ductal dilatation COMMENTS: Consistent with the [employer]'s Incidental Findings Committee white paper (J Am Liliane Radiol 2018): Any incidental renal lesion less than 1 cm or classified as too small to characterize, or any incidental cystic renal lesion characterized as simple-appearing, is likely benign. No follow-up imaging is recommended for these lesions per consensus recommendations based on imaging criteria.
[2023-09-01] MEDS: iohexol 350 mg/mL 500 mL Btl (per mL) IV (09:10)
== END 2023-09-01 07:59 | disposition home or self-care (01) ==
LOC: RAD 07:58
PROVIDERS: PCP Family Medicine; Visit Provider Internal Medicine Medical Oncology
DX: C78.00 Secondary malignant neoplasm of unspecified lung (principal); C78.2 Secondary malignant neoplasm of pleura; R91.8 Other nonspecific abnormal finding of lung field; C50.811 Malignant neoplasm of overlapping sites of right female breast
CPT/HCPCS: 71260; 74177; Q9967

== ENCOUNTER 2023-09-05 13:06 | Oncology outpatient (recurring) (ONCR) | payer MEDICARE, MEDICAID, SELFPAY ==
[2023-09-05 14:03] LABS: Basophils # 0.1 10^3/uL (0.0-0.1); Basophils % 1.2 %; Eosinophils # 0.1 10^3/uL (0.0-0.8); Eosinophils % 1.6 %; Lymphocytes # 1.2 10^3/uL (0.8-4.8); Lymphocytes % 23.1 %; Mean Corpuscular HGB Conc 32.7 g/dL (30-55); Mean Corpuscular Hemoglobin 34.4 pg (27-33); Mean Corpuscular Volume 105.1 fl (85-98); Mean Platelet Volume 9.7 fL (7.4-10.4); Monocytes # 0.3 10^3/uL (0.2-0.9); Monocytes % 5.4 %; Neutrophils # 3.52 10^3/uL (1.8-7.7); Neutrophils % 68.1 %; Nucleated Red Blood Cells % 0 %; Platelet Count 348 10^3/cmm (157-399); Red Blood Count 3.52 10^6/uL (3.85-5.65); Red Cell Distribution Width 16.9 % (12.1-15.1); White Blood Count 5.16 10^3/uL (3.29-11.43)
[2023-09-05 17:41] LABS: Alanine Aminotransferase 18 U/L (0-33); Alkaline Phosphatase 115 U/L (35-105); Anion Gap 14.2 (5-19); Aspartate Amino Transferase 16 U/L (0-32); Blood Urea Nitrogen 29 mg/dL (8-23); CA 15-3 29.9 U/mL (0-25); Carbon Dioxide 26 mmol/L (22-29); Chloride 102 mmol/L (98-107); Creatinine Clr Calc Pharmacy 116.3348; Globulin 2.5 g/dL (1.3-4.6); Glomerular Filtration Rate 84.5 mL/min (90-130); Glucose 94 mg/dL (65-115); Osmolality Calculated 292 mOsm/kg (285-295); Potassium 4.2 mmol/L (3.5-5.1); Sodium 138 mmol/L (136-145); Total Bilirubin 0.2 mg/dL (0.15-1.2); Total Protein 6.5 g/dL (6.6-8.7)
== END 2023-09-18 23:59 | disposition home or self-care (01) ==
LOC: ONCMED 13:07
PROVIDERS: PCP Family Medicine; Visit Provider Internal Medicine Medical Oncology
DX: C50.811 Malignant neoplasm of overlapping sites of right female breast (principal)
CPT/HCPCS: 36415; 80053; 85025; 86300; 99214

== ENCOUNTER 2023-12-01 08:53 | Oncology outpatient (recurring) (ONCR) | payer MEDICARE, MEDICAID, SELFPAY ==
[2023-12-01 09:29] LABS: Basophils % 0.9 %; Eosinophils # 0.1 10^3/uL (0.0-0.8); Eosinophils % 2.1 %; Lymphocytes % 31.6 %; Mean Corpuscular HGB Conc 32.4 g/dL (30-55); Mean Corpuscular Hemoglobin 35.1 pg (27-33); Mean Corpuscular Volume 108.6 fl (85-98); Mean Platelet Volume 9.1 fL (7.4-10.4); Monocytes # 0.3 10^3/uL (0.2-0.9); Monocytes % 7.9 %; Neutrophils # 1.88 10^3/uL (1.8-7.7); Neutrophils % 57.2 %; Nucleated Red Blood Cells % 0 %; Platelet Count 355 10^3/cmm (157-399); Red Blood Count 3.13 10^6/uL (3.85-5.65); Red Cell Distribution Width 16.1 % (12.1-15.1); White Blood Count 3.29 10^3/uL (3.29-11.43)
[2023-12-01 09:50] LABS: Alanine Aminotransferase 10 U/L (0-33); Albumin Level 3.7 g/dL (3.5-5.2); Alkaline Phosphatase 89 U/L (35-105); Anion Gap 14.1 (5-19); Aspartate Amino Transferase 12 U/L (0-32); Blood Urea Nitrogen 20 mg/dL (8-23); Calcium 8.9 mg/dL (8.5-10.5); Carbon Dioxide 28 mmol/L (22-29); Chloride 101 mmol/L (98-107); Globulin 2.8 g/dL (1.3-4.6); Glucose 142 mg/dL (65-115); Osmolality Calculated 293 mOsm/kg (285-295); Potassium 4.1 mmol/L (3.5-5.1); Sodium 139 mmol/L (136-145); Total Bilirubin 0.2 mg/dL (0.15-1.2); Total Protein 6.5 g/dL (6.6-8.7)
[2023-12-01 10:34] LABS: Slide Review Slide Review Perform
[2023-12-01 15:56] LABS: CA 15-3 33.4 U/mL (0-25)
== END 2023-12-18 23:59 | disposition home or self-care (01) ==
PROVIDERS: PCP Family Medicine; Visit Provider Internal Medicine Medical Oncology
DX: C50.811 Malignant neoplasm of overlapping sites of right female breast (principal); C78.00 Secondary malignant neoplasm of unspecified lung; C78.2 Secondary malignant neoplasm of pleura
CPT/HCPCS: 36415; 80053; 85025; 86300; 99214

== ENCOUNTER 2024-05-30 12:39 | Oncology outpatient (recurring) (ONCR) | payer MEDICARE, MEDICAID, SELFPAY ==
[2024-05-30 13:03] LABS: Basophils # 0.1 10^3/uL (0.0-0.1); Basophils % 1.6 %; Eosinophils # 0.1 10^3/uL (0.0-0.8); Eosinophils % 1.4 %; Mean Corpuscular HGB Conc 32.3 g/dL (30-55); Mean Corpuscular Hemoglobin 36.6 pg (27-33); Mean Corpuscular Volume 113.2 fl (85-98); Monocytes # 0.4 10^3/uL (0.2-0.9); Monocytes % 12.1 %; Neutrophils # 2.14 10^3/uL (1.8-7.7); Neutrophils % 58.6 %; Nucleated Red Blood Cells % 0 %; Platelet Count 161 10^3/cmm (157-399); Red Blood Count 2.65 10^6/uL (3.85-5.65); Red Cell Distribution Width 18.6 % (12.1-15.1); White Blood Count 3.65 10^3/uL (3.29-11.43)
[2024-05-30 13:32] LABS: Alanine Aminotransferase 11 U/L (0-33); Albumin Level 3.8 g/dL (3.5-5.2); Alkaline Phosphatase 72 U/L (35-105); Anion Gap 11.4 (5-19); Aspartate Amino Transferase 12 U/L (0-32); Blood Urea Nitrogen 20 mg/dL (8-23); CA 15-3 36.9 U/mL (0-25); Calcium 9.4 mg/dL (8.5-10.5); Carbon Dioxide 29 mmol/L (22-29); Chloride 106 mmol/L (98-107); Creatinine Clr Calc Pharmacy 144.7263; Globulin 2.8 g/dL (1.3-4.6); Glomerular Filtration Rate 124.6 mL/min (90-130); Glucose 97 mg/dL (65-115); Osmolality Calculated 297 mOsm/kg (285-295); Potassium 4.4 mmol/L (3.5-5.1); Sodium 142 mmol/L (136-145); Total Bilirubin 0.2 mg/dL (0.15-1.2); Total Protein 6.6 g/dL (6.6-8.7)
== END 2024-06-19 23:59 | disposition home or self-care (01) ==
PROVIDERS: Nurse Practitioner Family; PCP Family Medicine; Visit Provider Internal Medicine Medical Oncology
DX: C50.811 Malignant neoplasm of overlapping sites of right female breast (principal); C78.00 Secondary malignant neoplasm of unspecified lung; C78.2 Secondary malignant neoplasm of pleura
CPT/HCPCS: 36415; 80053; 85025; 86300; 99214

== ENCOUNTER → 2024-06-04 13:57 | Outpatient (BNVA) | payer MEDICARE, MEDICAID, SELFPAY | PROVIDERS: PCP Family Medicine; Visit Provider Family Medicine | DX: F41.1 Generalized anxiety disorder (principal); R63.4 Abnormal weight loss; D50.0 Iron deficiency anemia secondary to blood loss (chronic); C78.2 Secondary malignant neoplasm of pleura; K29.31 Chronic superficial gastritis with bleeding; M17.9 Osteoarthritis of knee, unspecified; Z76.89 Persons encountering health services in other specified circumstances | CPT/HCPCS: 82607; 83550; 84443; 85025 ==

== ENCOUNTER 2024-07-02 15:53 | Outpatient (CLI) | payer MEDICARE, MEDICAID, SELFPAY ==
--- NOTE | 2024-07-02 16:07 | MM_ITS ---
WS: [id number] BILATERAL 3D TOMOSYNTHESIS DIGITAL DIAGNOSTIC MAMMOGRAPHY WITH CAD CLINICAL INFORMATION: SURVEILLANCE HISTORY: History of RIGHT breast CA COMPARISON: 03/28/2023 TECHNIQUE: Bilateral CC, MLO, and ML views. FINDINGS: History of breast cancer in 2019 although those images are not available. Only prior mammog chucho are from 2013 prior to 2022 Scattered fibroglandular densities bilaterally. Few tiny incidental punctate calcifications. Stable n ipple inversion RIGHT breast. Nipple and parenchymal retraction with parenchymal density measuring 4. 7 x 2.8 cm measures slightly larger today but similar in appearance since 03/28/2023. This abuts the c hest wall posteriorly. Prior ultrasound from 2022 demonstrated solid lesion in this area suspicious f or neoplasm. Suspected chest wall invasion based on the posterior location. Recommend further evaluat ion with ultrasound-guided biopsy if this has not been performed previously. LEFT breast is unremarkable and unchanged. Prior CT 09/01/2023 reviewed and also demonstrates the spiculated RIGHT breast lesion which appears to abut the chest wall musculature posteriorly with loss of the normal fat plane. MM/MM diag BI tomosynthesis [id number] IMPRESSION: DENSITY: There are scattered areas of fibroglandular density. BI-RADS: 5 - Highly suggestive of Malignancy. FOLLOW UP: US Guided Biopsy Recommended Recommend ultrasound RIGHT breast and ultrasound-guided biopsy of the RIGHT fidel ast lesion Discussed with Alexandra Byers APRN at 07/04/2024 11:14 AM.
== END 2024-07-02 15:54 | disposition home or self-care (01) ==
LOC: RAD 15:55
PROVIDERS: PCP Family Medicine; Visit Provider Nurse Practitioner Family
DX: C50.811 Malignant neoplasm of overlapping sites of right female breast (principal); R92.323 Mammographic fibroglandular density, bilateral breasts; N64.59 Other signs and symptoms in breast; N64.9 Disorder of breast, unspecified; R92.8 Other abnormal and inconclusive findings on diagnostic imaging of breast
CPT/HCPCS: 77062; G0279

== ENCOUNTER 2024-08-15 11:49 | Oncology outpatient (recurring) (ONCR) | payer MEDICARE, MEDICAID, SELFPAY ==
--- NOTE | 2024-07-20 10:00 | PETR_ITS ---
PROCEDURE INFORMATION: Exam: PET/CT Skull Base to Mid-thigh Exam date and time: 07/20/2024 11:21 AM Age: 64 years old Clinical indication: Symptoms: Enlarging breast mass; HX of breast cancer LABS AND CLINICAL REPORTS: Glucose: 129 mg/dl Treatment strategy for malignancy (PET staging): Initial Staging (PI) TECHNIQUE: Imaging protocol: Following at least four-hour fasting and following the injection of radiopharmaceutical, low dose CT images were obtained. Then, PET images were obtained. Attenuation corrected images were constructed using the CT scan. Fused images of PET and CT were reviewed. The standardized uptake values (SUV) reported below are maximum values within a region of interest, expressed in gm/ml. Exam includes orbital meatal line to mid-thigh. SUV normalization method: BodyWeight Radiopharmaceutical: 10.8 mCi F-18 FDG (Fluorodeoxyglucose), IV. Time of imaging post radiopharmaceutical administration: 47 minutes Injection site: LEFT AC COMPARISON: 1. CT chest abdpel w/*[id number] 09/01/2023 9:[address] angio chest PE protcl [id number] 12/04/2021 9:39 AM FINDINGS: Brain: Visualized brain has normal physiologic uptake. Pharynx: No abnormal uptake. Larynx: No abnormal uptake. Lungs, pleura and trachea: Medial left upper lobe subpleural nodule measuring 10 x 5 mm on axial image 232 shows SUV max 6.4. Focal pleural thickening at the mid lateral right lung measuring 9 mm on axial image 212 shows SUV max 3.7. Non FDG avid right middle lobe and lingular platelike atelectasis versus scarring. Calcified granulomata. Heart: Normal physiologic uptake. Coronary arteries: Mild coronary artery calcification. Mediastinal space: No abnormal uptake. Diaphragm: Moderate hiatal hernia. Liver: No abnormal uptake. Gallbladder and biliary ducts: No abnormal uptake. Cholelithiasis. Pancreas: No abnormal uptake. Spleen: No abnormal uptake. Adrenal glands: No abnormal uptake. Kidneys and ureters: Normal physiologic uptake. Stomach and bowel: No abnormal uptake. Colonic diverticulosis without findings of diverticulitis. Reproductive: Calcified uterine fibroid. Vasculature: No abnormal uptake. Lymph nodes: No abnormal uptake. No lymphadenopathy in the head, neck, chest, abdomen, pelvis, and extremities. Calcified bilateral hilar nodes in keeping with sequela of old granulomatous disease. Skeleton: Posterior T12 vertebral body lucent lesion measuring 1.8 x 1.3 cm on axial image 172 shows SUV max 17.8. No severe spinal canal stenosis. Degenerative changes along the spine. Low-level bilateral shoulder periarticular uptake is likely inflammatory. Soft tissues: Stable CT appearance of right breast postsurgical change without FDG avidity. Bilateral shoulder and upper back muscle FDG uptake without underlying CT abnormality is likely benign physiologic or strain. Small fat containing umbilical hernia. METRICS: Mediastinal blood pool: SUV mean 2.1 Liver uptake: SUV mean 2.7 PET/PET skull to thigh INIT [id number] IMPRESSION: 1. FDG avid lucent lesion at the posterior T12 vertebral body is likely malignant, suspect metastasis. 2. Two small bilateral FDG avid subpleural/pleural nodules as above. Concern for metastatic disease given T12 vertebral body lesion and history of breast cancer. 3. Additional chronic and incidental findings as above, to include cholelithiasis, colonic diverticulosis, and moderate hiatal hernia.
--- NOTE | 2024-08-15 11:55 | US_ITS ---
WS: [id number] ULTRASOUND-GUIDED RIGHT BREAST BIOPSY HISTORY: R BREAST CANCER COMPARISON: 03/28/2023, PET/CT 07/20/2024 Procedure, risks and complications are explained to the patient. Medications are reviewed. Consent is obtained. The mass in the RIGHT breast is localized with ultrasound. Skin is cleansed with ChloraPrep and anesthetized with 1% buffered lidocaine. Small dermatome is made. Under sterile conditions mass is biopsied with a 14-gauge Achieve needle. Multiple core biopsies are performed. Material placed in formalin and sent to pathology for review. No complications encountered. Breast tissue marker (Skaffl ultrasound enhanced ribbon): Single. Patient left the radiology suite with no complications. Patient is instructed to return to [facility] or call with any concerns. US/[place] [id number] IMPRESSION: 1. Uncomplicated core needle biopsy RIGHT breast mass at 5:00. PATHOLOGY: Densely hyalinized and fibrotic breast parenchyma with focal microca lcifications. No malignancy. RECOMMENDATION: Limited RIGHT breast ultrasound follow-up in 6 months. Imaging findings including PET/CT are concordant with the pathologic findings.
== END 2024-08-17 23:59 | disposition home or self-care (01) ==
LOC: ONCMED 11:50 → RAD 11:51 → ONCMED 08-16 09:54
PROVIDERS: PCP Family Medicine; Visit Provider Nurse Practitioner Family
DX: C50.811 Malignant neoplasm of overlapping sites of right female breast (principal); C78.00 Secondary malignant neoplasm of unspecified lung; N63.10 Unspecified lump in the right breast, unspecified quadrant
CPT/HCPCS: 19083; 78815; 88305; A9552

== ENCOUNTER 2024-08-29 12:30 | Oncology outpatient (recurring) (ONCR) | payer MEDICARE, MEDICAID, SELFPAY ==
[2024-08-29 12:47] LABS: Basophils # 0.1 10^3/uL (0.0-0.1); Basophils % 1.4 %; Eosinophils # 0.1 10^3/uL (0.0-0.8); Hematocrit 34.8 % (36-47); Lymphocytes % 20.5 %; Mean Corpuscular HGB Conc 32.5 g/dL (30-55); Mean Corpuscular Hemoglobin 35.2 pg (27-33); Mean Corpuscular Volume 108.4 fl (85-98); Mean Platelet Volume 9.5 fL (7.4-10.4); Monocytes # 0.6 10^3/uL (0.2-0.9); Monocytes % 11.6 %; Neutrophils # 3.25 10^3/uL (1.8-7.7); Neutrophils % 64.1 %; Nucleated Red Blood Cells % 0 %; Platelet Count 260 10^3/cmm (157-399); Red Blood Count 3.21 10^6/uL (3.85-5.65); Red Cell Distribution Width 15.8 % (12.1-15.1); White Blood Count 5.07 10^3/uL (3.29-11.43)
[2024-08-29 13:18] LABS: Alanine Aminotransferase 19 U/L (0-33); Alkaline Phosphatase 110 U/L (35-105); Anion Gap 12.3 (5-19); Aspartate Amino Transferase 16 U/L (0-32); Blood Urea Nitrogen 21 mg/dL (8-23); CA 15-3 48.2 U/mL (0-25); Calcium 9.2 mg/dL (8.5-10.5); Carbon Dioxide 28 mmol/L (22-29); Chloride 105 mmol/L (98-107); Globulin 2.6 g/dL (1.3-4.6); Glomerular Filtration Rate 100.6 mL/min (90-130); Glucose 106 mg/dL (65-115); Osmolality Calculated 295 mOsm/kg (285-295); Potassium 4.3 mmol/L (3.5-5.1); Sodium 141 mmol/L (136-145); Total Bilirubin 0.2 mg/dL (0.15-1.2); Total Protein 6.6 g/dL (6.6-8.7)
== END 2024-09-17 23:59 | disposition home or self-care (01) ==
PROVIDERS: PCP Family Medicine; Visit Provider Nurse Practitioner Family
DX: C50.811 Malignant neoplasm of overlapping sites of right female breast (principal); Z17.0 Estrogen receptor positive status [ER+]; D50.9 Iron deficiency anemia, unspecified; M17.12 Unilateral primary osteoarthritis, left knee; F99 Mental disorder, not otherwise specified; R97.1 Elevated cancer antigen 125 [CA 125]; Z79.811 Long term (current) use of aromatase inhibitors; Z79.899 Other long term (current) drug therapy
CPT/HCPCS: 36415; 80053; 85025; 86300; 99213

== ENCOUNTER 2024-11-29 09:49 | Oncology outpatient (recurring) (ONCR) | payer OTHER, MEDICAID, SELFPAY ==
[2024-11-29 11:27] LABS: Basophils % 1.1 %; Eosinophils # 0.1 10^3/uL (0.0-0.8); Eosinophils % 2.2 %; Hematocrit 40.3 % (36-47); Lymphocytes # 0.9 10^3/uL (0.8-4.8); Lymphocytes % 24.2 %; Mean Corpuscular Hemoglobin 35.3 pg (27-33); Mean Corpuscular Volume 110.4 fl (85-98); Mean Platelet Volume 9.5 fL (7.4-10.4); Monocytes # 0.2 10^3/uL (0.2-0.9); Monocytes % 6.1 %; Neutrophils # 2.34 10^3/uL (1.8-7.7); Neutrophils % 65.3 %; Nucleated Red Blood Cells % 0 %; Platelet Count 356 10^3/cmm (157-399); Red Blood Count 3.65 10^6/uL (3.85-5.65); Red Cell Distribution Width 14.6 % (12.1-15.1); White Blood Count 3.59 10^3/uL (3.29-11.43)
[2024-11-29 11:28] LABS: Erythrocyte Sedimentation Rate 113 mm/hr (0-15)
[2024-11-29 11:31] LABS: Reticulocyte % 1.3 % (0.5-2.0)
[2024-11-29 12:10] LABS: Alanine Aminotransferase 20 U/L (0-33); Albumin Level 4.2 g/dL (3.5-5.2); Alkaline Phosphatase 99 U/L (35-105); Anion Gap 14.3 (5-19); Aspartate Amino Transferase 15 U/L (0-32); Blood Urea Nitrogen 22 mg/dL (8-23); CA 15-3 56.4 U/mL (0-25); Calcium 9.7 mg/dL (8.5-10.5); Carbon Dioxide 28 mmol/L (22-29); Chloride 104 mmol/L (98-107); Ferritin 75 ng/mL (15-150); Globulin 2.9 g/dL (1.3-4.6); Glomerular Filtration Rate 84.2 mL/min (90-130); Glucose 93 mg/dL (65-115); Iron 124 ug/dL (37-145); Lactate Dehydrogenase 190 U/L (135-214); Osmolality Calculated 297 mOsm/kg (285-295); Percent Saturation 35.1 % (20-50); Potassium 4.3 mmol/L (3.5-5.1); Sodium 142 mmol/L (136-145); Total Bilirubin 0.4 mg/dL (0.15-1.2); Total Iron Binding Capacity 353 mcg/dl; Total Protein 7.1 g/dL (6.6-8.7); Unsaturated Iron Binding 229 ug/dL (112-347)
[2024-11-29 12:25] LABS: Slide Review Slide Review Perform
== END 2024-12-17 23:59 | disposition home or self-care (01) ==
PROVIDERS: Internal Medicine; PCP Family Medicine; Visit Provider Nurse Practitioner Family
DX: C50.811 Malignant neoplasm of overlapping sites of right female breast (principal); Z17.0 Estrogen receptor positive status [ER+]; C78.2 Secondary malignant neoplasm of pleura; Z79.811 Long term (current) use of aromatase inhibitors; M85.80 Other specified disorders of bone density and structure, unspecified site; F99 Mental disorder, not otherwise specified; N63.10 Unspecified lump in the right breast, unspecified quadrant; D64.9 Anemia, unspecified
CPT/HCPCS: 36415; 80053; 82728; 83010; 83540; 83550; 83615; 85025; 85045; 85651; 86140; 86300; 99214

== ENCOUNTER 2025-02-07 13:47 | Outpatient (CLI) | payer OTHER, MEDICAID, SELFPAY ==
--- NOTE | 2025-02-07 13:57 | US_ITS ---
WS: [id number] ULTRASOUND RIGHT BREAST HISTORY: RT BREAST POST BIOPSY FOLLOW UP COMPARISON: 08/15/2024, 02/07/2025 TECHNIQUE: 2-D and Doppler. No change in the vague asymmetry RIGHT breast at 5:00. Negative biopsy. Clip is not definitely visualized. No progression in the abnormality. US/US breast RT limited* [id number] IMPRESSION: BI-RADS: 2- Benign FOLLOW-UP: See Report Recommend return to annual mammography. Diagnostic mammogram June 2025.
== END 2025-02-07 13:48 | disposition home or self-care (01) ==
LOC: RAD 13:48
PROVIDERS: PCP Family Medicine; Visit Provider Nurse Practitioner Family
DX: C50.811 Malignant neoplasm of overlapping sites of right female breast (principal)
CPT/HCPCS: 76642

== ENCOUNTER 2025-02-28 10:44 | Oncology outpatient (recurring) (ONCR) | payer OTHER, MEDICAID, SELFPAY ==
[2025-02-28 11:47] LABS: Hematocrit 35.2 % (36-47); Hemoglobin 11.60 g/dL (11.27-16.99); Mean Corpuscular HGB Conc 33.0 g/dL (30-55); Mean Corpuscular Hemoglobin 36.7 pg (27-33); Mean Corpuscular Volume 111.4 fl (85-98); Nucleated Red Blood Cells % 0 %; Platelet Count 257 10^3/cmm (157-399); Red Blood Count 3.16 10^6/uL (3.85-5.65); White Blood Count 3.45 10^3/uL (3.29-11.43)
[2025-02-28 12:18] LABS: Alanine Aminotransferase 19 U/L (0-33); Albumin Level 4.0 g/dL (3.5-5.2); Alkaline Phosphatase 105 U/L (35-105); Anion Gap 10.4 (5-19); Aspartate Amino Transferase 15 U/L (0-32); Blood Urea Nitrogen 18 mg/dL (8-23); CA 15-3 52.1 U/mL (0-25); Calcium 9.2 mg/dL (8.5-10.5); Carbon Dioxide 30 mmol/L (22-29); Chloride 106 mmol/L (98-107); Globulin 2.9 g/dL (1.3-4.6); Glucose 105 mg/dL (65-115); Osmolality Calculated 296 mOsm/kg (285-295); Potassium 4.4 mmol/L (3.5-5.1); Sodium 142 mmol/L (136-145); Total Protein 6.9 g/dL (6.6-8.7)
== END 2025-03-19 23:59 | disposition home or self-care (01) ==
PROVIDERS: PCP Family Medicine; Visit Provider Nurse Practitioner Family
DX: C50.811 Malignant neoplasm of overlapping sites of right female breast (principal); Z17.0 Estrogen receptor positive status [ER+]; Z79.811 Long term (current) use of aromatase inhibitors
CPT/HCPCS: 36415; 80053; 85025; 86300; 99214

== ENCOUNTER 2025-05-30 14:30 | Oncology outpatient (recurring) (ONCR) | payer MEDICARE, MEDICAID, SELFPAY ==
[2025-05-30 14:50] LABS: Hematocrit 37.4 % (36-47); Hemoglobin 12.40 g/dL (11.27-16.99); Mean Corpuscular HGB Conc 33.2 g/dL (30-55); Mean Corpuscular Hemoglobin 36.9 pg (27-33); Mean Corpuscular Volume 111.3 fl (85-98); Nucleated Red Blood Cells % 0 %; Platelet Count 196 10^3/cmm (157-399); Red Blood Count 3.36 10^6/uL (3.85-5.65); White Blood Count 4.32 10^3/uL (3.29-11.43)
[2025-05-30 15:26] LABS: Alanine Aminotransferase 17 U/L (0-33); Albumin Level 4.1 g/dL (3.5-5.2); Alkaline Phosphatase 106 U/L (35-105); Anion Gap 17.0 (5-19); Aspartate Amino Transferase 14 U/L (0-32); Blood Urea Nitrogen 27 mg/dL (8-23); CA 15-3 62.5 U/mL (0-25); Calcium 9.3 mg/dL (8.5-10.5); Carbon Dioxide 27 mmol/L (22-29); Chloride 104 mmol/L (98-107); Globulin 3.0 g/dL (1.3-4.6); Glucose 105 mg/dL (65-115); Osmolality Calculated 303 mOsm/kg (285-295); Potassium 4.0 mmol/L (3.5-5.1); Sodium 144 mmol/L (136-145); Total Protein 7.1 g/dL (6.6-8.7)
== END 2025-06-19 23:59 | disposition home or self-care (01) ==
PROVIDERS: PCP Family Medicine; Visit Provider Nurse Practitioner
DX: C50.811 Malignant neoplasm of overlapping sites of right female breast (principal); Z17.0 Estrogen receptor positive status [ER+]; Z79.899 Other long term (current) drug therapy; Z86.711 Personal history of pulmonary embolism
CPT/HCPCS: 36415; 80053; 85025; 86300; 99213